=== PATIENT | male | born 1955 | race Caucasian/White ===

== ENCOUNTER 2024-01-06 15:00 | Outpatient (RCR) | payer MEDICARE, SELFPAY ==
--- NOTE | 2023-12-04 14:31 | PTOPEVAL1 ---
Assessment and note entered by Carmen Lopez, PT Evaluation Information Assessment Status Evaluation Diagnosis Oth. Specified joint disorders ICD-10 Condition Codes (PT) M25.511,Weakness R53.1 Other ICD-10 Condition Codes ( Abnormal posture PT) Onset August 2023 Subjective Information Fell and reached out for a railing and hyperextended RUE reaching over to flip up light switch to the outside. When fell, he strained and pulled a lot of muscles on the right shoulder but the shoulder itself has not stopped hurting. Doesn't keep him from doing anything but can go from a 3 to a 9 of 10 pain. Was going to a chiropractor and was told to do the exercises until they hurt the back off. She also done ultrasound and stim. felt like these helped for a day or two then would go back. When laying down to sleep is when has increased pain. Has been using CBD lotion. Has not tried CBG . Reported Pain Level Pain Score 2: Self Report Assessment PT Clinical Summary Pt presents with complaints of right shoulder pain after a fall this past Summer. Pt demo's mildly decreased ROM compared to unaffected extremity however has pain with activities above 90 degrees, eccentric loading of supraspinatus, decreased strength RUE compared to LUE, poor thoracic and scapular postures, and (+) special testing suggestive of supraspinatus tear, and/or labral involvement in addition to clear postural related impingement. Pt will benefit from therapy to address deficits, and decreased pain with use to return pt to PLOF. Plan of Care Interventions Electrical Stimulation,Hot Pack/Cold Pack,Manual Therapy,Neuro Re-education,Patient/Caregiver Educati,Therapeutic Activities,Therapeutic Exercise,Self-Care/Home Management,Ultrasound Other Interventions IASTM, Taping PT Services Indicated Yes Treatment Frequency and 2x weekly x 8 visits Duration These treatments will address the objective and functional deficits as defined above. The patient will be advanced safely and appropriately in order for the patient to progress towards his/her prior level of function. Additional exercises will be introduced and as well as a comprehensive home exercise program upon discharge, if needed, ?to ensure carryover of functional gains achieved in the clinic. This treatment plan has been reviewed and agreement upon by the patient.
--- NOTE | 2023-12-04 14:31 | OPREHPOC ---
Outpatient Therapy Plan of Care This is a Multidisciplinary Plan of Care that may contain components documented by all disciplines (PT, OT, and ST.) PT Problem 1 PT Problem #1 Knowledge Deficit PT Goal 1 Goal / Goal Update Pt will be independent in HEP Pt will verbalize understanding of diagnosis and prognosis PT Problem 2 PT Problem #2 Pain PT Goal 1 Goal / Goal Update Pt will report lowest pain rating at 0/10 to show improvement in overall discomfort Target Visit 4 PT Goal 2 Goal / Goal Update Pt will report greatest pain level at 3/10 or less to improve ADLs and activities Target Visit 8 PT Problem 3 PT Problem #3 Impaired Range of Motion PT Goal 1 Goal / Goal Update Pt will demo RUE ROM equal to LUE without pain Target Visit 8 PT Problem 4 PT Problem #4 Impaired Strength PT Goal 1 Goal / Goal Update Pt will demo RUE equal strength compared to LUE below impingement range. Target Visit 8
--- NOTE | 2024-01-06 15:46 | PTOPPROG ---
Assessment and note entered by Carmen Lopez, PT Evaluation Information Assessment Status Progress Diagnosis Oth. Specified joint disorders ICD-10 Condition Codes (PT) M25.511,Weakness R53.1 Other ICD-10 Condition Codes ( Abnormal posture PT) Onset August 2023 Subjective Information Pt reports is worse than when he started. Pain increased approx 2 weeks ago when had arm resting on the back of the couch and since then has continued to have increased pain. continues to have the worst pain when sleeping. States evidently woke up his up moaning in his sleep . Reports has had the MRI, has multiple tears in the shoulder, some full thickness some partial. Has not taken OTC NSAIDs, prefers CBD anti- inflammatories Assessment PT Clinical Summary Pt has attended therapy consistently for right shoulder pain. He has since also had imaging which shows multiple partial and full thickness tears of multiple muscle groups and subacromial bursitis . During therapy his shoulder became further irritated after lifting arm from an impingement position after which point the pain did not return to lower ratings even at rest. Pt today demo's decreased ROM and strength due to pain. Pending ortho consult, should pain reduce, patient may benefit from continued therapy. However should pt and ortho decide on another route, this will act as patient's discharge note. Plan of Care Interventions Electrical Stimulation,Hot Pack/Cold Pack,Manual Therapy,Neuro Re-education,Patient/Caregiver Educati,Therapeutic Activities,Therapeutic Exercise,Self-Care/Home Management,Ultrasound Other Interventions IASTM, Taping PT Services Indicated Yes Treatment Frequency and Pending ortho consult, cont 1-2x weekly x 8 weeks Duration These treatments will address the objective and functional deficits as defined above. The patient will be advanced safely and appropriately in order for the patient to progress towards his/her prior level of function. Additional exercises will be introduced and as well as a comprehensive home exercise program upon discharge, if needed, ?to ensure carryover of functional gains achieved in the clinic. This treatment plan has been reviewed and agreement upon by the patient.
--- NOTE | 2024-01-09 17:15 | PCPTNOTE ---
Admitting Provider: Attending Provider: LINDA Morton Patient:Osiel Garcia Date of :1955 Pt called today stating he would be undergoing surgery for his shoulder and to close his case for now. We will be happy to assist in his rehabilitation post-surgery and look forward to working with him again. Thank you for referring this patient to [facility].
== END 2024-01-10 08:05 | disposition home or self-care (01) ==
LOC: ANHHIPT 15:00
PROVIDERS: PCP Family Medicine; Visit Provider Physician Assistant Surgical
DX: M25.811 Other specified joint disorders, right shoulder (principal)
CPT/HCPCS: 97014; 97032; 97035; 97110; 97140; 97161; 97530; 97750; G0283

== ENCOUNTER 2024-01-24 16:19 | Emergency (ER) | payer MEDICARE, SELFPAY ==
[2024-01-24 16:22] VITALS: BP 167/92; PULSE 85; RESP 20; TEMP 36.1; O2SAT 98
--- NOTE | 2024-01-24 17:20 | PC.NURSE ---
EDP lanced pt hemorrhoid and cleaned area
[2024-01-24 17:28] VITALS: BP 166/110; PULSE 77; RESP 15; O2SAT 99
--- NOTE | 2024-01-24 18:04 | ED.GENADULT ---
HPI - General Adult General Chief complaint: Unspecified Stated complaint: Thrombus Hemorrhoid Time Seen by Provider: 01/24/24 16:55 Related Data Home Medications Medication Instructions Recorded Confirmed diltiazem HCl 240 mg mg PO 11/25/23 01/08/24 capsule,extended release 24 hr, controlled CBD PO 01/08/24 01/08/24 THC PO 01/08/24 01/08/24 Allergies Allergy/AdvReac Type Severity Reaction Status Date / Time Taetvvh-DSH-PzX Reductase AdvReac Intermediate Rash Verified 01/24/24 16:20 Inhibitor PMFSH Past Medical History Medical History Skin cancer Ventral hernia Surgical History Surgical History History of cochlear implant Family History Family History Other Diabetes mellitus Social History Social History Smoking status: Never smoker Second hand tobacco smoke exposure: Yes Alcohol intake: current Substance use: current Substance use type: marijuana Last use: Pills for pain. 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 Head: atraumatic. EYES: EOMI, NOSE: Atraumatic NECK: Trachea midline RESPIRATORY: No increased rate of breathing CARDIOVASCULAR: RRR, ABDOMINAL: Non-distended MUSCULOSKELETAl: No obvious deformities NEURO: Alert. Moving 4/4 extremities SKIN:: Warm, dry. Normal color PSYCHIATRIC: Normal affect Rectal exam 1 x 1 cm thrombosed hemorrhoid at the 3 o'clock position of the anus. Course Vital Signs Vital signs: Vital Signs Temperature 97.0 F L 01/24/24 16:22 Pulse Rate 85 01/24/24 16:22 Respiratory Rate 20 01/24/24 16:22 Blood Pressure 167/92 H 01/24/24 16:22 Pulse Oximetry 98 01/24/24 16:22 Oxygen Delivery Room Air 01/24/24 16:22 Temperature 97.0 F L 01/24/24 16:22 Pulse Rate 77 01/24/24 17:28 Respiratory Rate 15 01/24/24 17:28 Blood Pressure 166/110 H 01/24/24 17:28 Pulse Oximetry 99 01/24/24 17:28 Oxygen Delivery Room Air 01/24/24 16:22 Medical Decision Making MDM Narrative Medical decision making narrative: -Course: 68-year-old male presenting with a thrombosed hemorrhoid. Incision and drainage was performed with immediate relief. Patient was discharged with supportive measures and primary care follow-up procedures: patient is placed in a right lateral recumbent. The area was exposed. The hemorrhoid was anesthetized with 1% lidocaine x5 cc. A elliptical incision was made and the clot was expressed. Hemostasis achieved the patient tolerated the procedure well. Vital Signs Vital Signs: Vital Signs Temperature 97.0 F L 01/24/24 16:22 Pulse Rate 85 01/24/24 16:22 Respiratory Rate 20 01/24/24 16:22 Blood Pressure 167/92 H 01/24/24 16:22 Pulse Oximetry 98 01/24/24 16:22 Oxygen Delivery Room Air 01/24/24 16:22 Temperature 97.0 F L 01/24/24 16:22 Pulse Rate 77 01/24/24 17:28 Respiratory Rate 15 01/24/24 17:28 Blood Pressure 166/110 H 01/24/24 17:28 Pulse Oximetry 99 01/24/24 17:28 Oxygen Delivery Room Air 01/24/24 16:22 Discharge Plan Discharge Clinical Impression: Hemorrhoid thrombosis Patient Disposition: Home, Self-Care Condition: Stable Instructions: Antibiotic Form, Thrombosed Hemorrhoid (ED) Additional Instructions: Please follow-up with your primary care physician further management. Continue your typical hemorrhoid care. If you develop significant bleeding, increased rectal pain or signs of infection we return emergency department immediately. Prescriptions: No Action diltiazem HCl 240 mg capsule,ext.rel 24h degradable PO CBD PO THC PO meloxicam 15 mg tablet 15 mg PO DAILY Qty: 30 2RF methylprednisolone [Medrol (Zaire)] 4 mg tablets,dose pack See Rx Instructions PO PER PKG DIR Qty: 1 0RF Rx Instructions: PO PER PKG DIR for 6 days Follow-up/Referrals: Brian,Lam Jerez MD [Primary Care Provider] -
[2024-01-24 18:32] VITALS: BP 165/112; PULSE 86; RESP 15; TEMP 36.4; O2SAT 98
== END 2024-01-24 18:38 | disposition home or self-care (01) ==
PROVIDERS: Emergency Provider Emergency Medicine; PCP Family Medicine
DX: K64.5 Perianal venous thrombosis (principal)
CPT/HCPCS: 46320; 99282; J2004

== ENCOUNTER 2024-04-16 08:39 | Outpatient (CLI) | payer MEDICARE, SELFPAY ==
--- OUTSIDE RECORDS SUMMARY | 2024-04-16 08:46 | XMS_ITS | Encounter Summary ---
Author Organization [facility] [place] [facility] Address [address] [facility] [address] [place] [address] Phone Care Team Providers Care Automatic Edger Name Role Phone Nicky Jimenez MD Primary Care Provider [phone] Khalif Ortega MD Unavailable [phone] Lam Torres MD Primary Care Provider Carly Corea Unavailable [phone] Nette Durham MD Unavailable [phone] Jesus rBowne MD Unavailable + [phone] Rory Gooden MD Unavailable [phone] Alec Sparks MD Unavailable [phone] Macario Ignacio MD Unavailable [phone] Encounter Details Date Type Department Care Team (Latest Contact Info) Description 04/14/2019 Orders Only [facility] Scanning, Provider Social History Tobacco Use Types Packs/Day Years Used Date Smoking Tobacco: Never Sex and Gender Information Value Date Recorded Sex Assigned at Not on file Legal 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 Gender Identity Male 12/16/2020 9:34 AM CDT Sexual Orientation Straight 10/26/2019 10 :23 AM CDT documented as of this encounter Plan of Treatment Not on file documented as of this encounter Procedures Procedure Name Priority Date/Time Associated Diagnosis Comments SCAN - LABS 04/14/2019 documented in this encounter Results * SCAN - LABS (04/14/2019) us Provider Scanning Final Result documented in this encounter Visit Diagnoses Not on filedocumented in this encounter Care Teams Automatic Edger Relationship Specialty [place] [address] [facility] [address] [place] [address] PCP - General Internal Medicine 12/18/17 05/13/23 Lam Torres MD [address] [place], [place] [id number] PCP - General Family Medicine 05/14/23 Khalif Ortega MD [address] [place] [address] Referring Physician Otolaryngology 04/15/18 Carly Corea PA [address] [place] [address] Physician Solidworks Designer 05/14/23 Nette Durham MD [address] [place], [place] [address] Consulting Physician Cardiology 05/14/23 Jesus Browne MD [address] [facility] [id number] [place] [address] Surgeon Surgical Critical Care 05/14/23 Rory Gooden MD [address] [facility] [address] [place] [address] Consulting Physician Urology 05/14/23 Alec Sparks MD [address] [place] [address] Referring Physician Orthopedic Surgery 03/16/24 Macario Ignacio MD [address] [place] [address] [place] [address] Dermatology 03/16/24 documented as of this encounter
--- OUTSIDE RECORDS SUMMARY | 2024-04-16 08:47 | XMS_ITS | Encounter Summary ---
Author Organization [facility] Address [facility] [place] [address] Care Team Providers Care Net Developer Architect Name Role Phone Nicky Jimenez MD Primary Care Provider None, Provider Primary Care Provider Unavaila ble Encounter Details Date Type Department Care Team (Late st Contact Info) Description 11/27/2019 QMedic Message Enc [facility] Family & Internal Medicine [facility] [address] [place] [address] Yvette Carlos, LINDA [address] [place] [address] Follow Up/Update Social History Tobacco Use Types Packs/Day Years Used Date Smoking Tobacco: Never Smokeless Tobacco: Never Alcohol Use Standard Drinks/Week Comments Yes 0 (1 standard drink = 0.6 oz pur e alcohol) rarely PHQ-2 Answer Date Recorded PHQ-2 Score 0 04/14/2019 Sex and Gender Information Value Date Recorded Sex Assigned at Not on file Legal Sex Male 7:41 PM CDT Gender Identity Not on file Sexual Orientation Not on file documented as of this encounter Plan of Treatment Not on file documented as of this encounter Visit Diagnoses Not on filedocumented in this encounter Additional Health Concerns Infection Onset Date Last Indicated Resolved Time COVID-19 Rule Out 06/05/2020 06/05/2020 06/06/2020 12:45 PM CDT documented as of this encounter Care Teams Net Developer Architect Relationship Specialty Start Date End Date Nicky Jimenez MD PCP - General 08/03/16 01/21/23 None, Provider, PCP - General UNKNOWN PHYSICIAN SPECIALTY 01/22/23 documented as of this encounter
--- OUTSIDE RECORDS SUMMARY | 2024-04-16 08:47 | XMS_ITS ---
Author Organization [facility] Address [address] [place] [address] Care Team Providers Care Educational Therapist Name Role Phone Khalif Ortega MD Unavailable [phone] Lam Torres MD Primary Care Provider [phone] Carly Corea Unavailable [phone] Nette Durham MD Unavailable [phone] Jesus Browne MD Unavailable + [phone] Rory Gooden MD Unavailable [phone] Alec Sparks MD Unavailable [phone] Macario Ignacio MD Unavailable [phone] Active Problems Problem Noted Date Diagnosed Date Preoperative evaluation to larisa beebe out surgical contraindication 03/17/2024 Assessment & Plan (03/17/2024 1:47 PM ENTRY DRIVER OPERATOR): addendum: reviewed labs, xr, ekg. he has significantly high cholesterol, with h/o statin intolerance, which we are going to treat. otherwise, by Zuñiga he is at 3.9% risk of major cardiac event, By ACS NSQIP he is at low risk as well KOBE (obstructive sleep apnea) 01/07/2024 BMI 32.0-32.9,adult 01/07/2024 Encounter for medical examination to establish c are 05/14/2023 Assessment & Plan (05/14/2023 10:18 AM CDT): A(n) initial Medicare Annual Wellness Visit has been performed today. Osiel Garcia is not up to date on screening tests. He is in need of Prostate screening, hepatitis C screen, and Cholesterol screening. He is up to date on needed preventative vaccinations. We discussed healthy lifestyle habits, educational material has been given. Medications reviewed, changes documented as per the medical record and discussed with patient along with risks vs benefits. Return in 1 month Melanoma of right upper arm 02/11/2023 Cataract, nuclear sclerotic, both eyes Assessment & Plan (06/19/2022 10:05 AM CDT): SRx given. Sternal pain 01/26/2020 Urinary retention 12/08/2019 Assessment & Plan (12/08/2019 8:48 AM CDT): Unable to void spontaneously s/p chandler removal despite multiple void trials with straight cath x 3. On flomax. Plan to discharge with chandler in place and patient given instructions for chandler care. Follow up to be arranged with PCP in 1 week for removal. Acute post-operative pain 12/03/2019 Assessment & Plan (12/03/2019 10:47 AM CDT): Epidural catheter with PAIN management following Dilaudid HAZARDOUS SUBSTANCES SCIENTIST Planning to keep chandler until epidural discontinued. Ventral hernia 11/17/2019 Overview (11/17/2019): Added automatically from request for surgery [id number] Assessment & Plan (12/07/2019 1:23 PM CDT): 12/01 [facility] OR Repair of open ventral hernia with bilateral posterior component separation with myofascial cutaneous release with synthetic mesh placed in the retrorectal space, inferior sternal reconstruction. RLQ drain subq LLQ drain above mesh -NPO, NG fell out post op. ARBF -Epidural/HAZARDOUS SUBSTANCES SCIENTIST,. Chandler until epidural removed. -Island drsg in place, remove 12/03 -12/02 Sips of CLD, dulcolax suppository. ARBF. - 12/05 Advance to regular diet, passing flatus 12/06 Tolerating a diet with pain well controlled. Having BM's. Midline incision with meseret clean, no erythema or drainage. OG drains with bloody tinged fluid, he will discharge with both drains. He will follow up with Dr. Browne. Screening for malignant neoplasm 10/28/2019 Overview (10/28/2019): Added automatically from request for surgery [id number] Hyperlipidemia 06/03/2019 Assessment & Plan (07/14/2020 9:55 AM CDT): His LDL is much improved on rosuvastatin, down to 83 from 210. He is interested in coming off of the statin if possible. I have asked him to work on losing weight, and we will repeat the cholesterol panel once he is back down at least to 215lb. We can give him a trial off of the statin and also check a coronary artery calcium score at that point to determine the need for continued statin therapy. Assessment & Plan (01/13/2020 4:46 PM ENTRY DRIVER OPERATOR): We will repeat lipid panel today, since he has lost a considerable amount of weight. We will have a low threshold to start statin therapy - we will go with rosuvastatin if needed. Assessment & Plan (06/03/2019 9:50 AM CDT): His LDL was markedly elevated at 210, which is in the range for possible familial hypercholesterolemia. We will increase atorvastatin to 80mg for high-intensity dosing. We will also perform genetic testing for familial hypercholesterolemia. I also recommended starting ASA 81mg for overall CV risk reduction. Obesity due to excess calories 06/03/2019 Assessment & Plan (05/14/2023 10:17 AM CDT): BMI Follow-up includes: nutrition counseling, exercise counseling, and education provided. Assessment & Plan (07/14/2020 9:56 AM CDT): He will work on lifestyle modifications at home to lose weight. Assessment & Plan (01/13/2020 4:47 PM ENTRY DRIVER OPERATOR): He has lost 30 pounds since our last visit and continues to be motivated to get down to 185lb. Assessment & Plan (06/03/2019 9:50 AM CDT): We talked about increasing intake of fruits and vegetables, portion control, and increasing exercise with the goal of losing weight. This is an important component of his treatment plan to reduce the risk of CV events. Hypertension Assessment & Plan (01/29/2024 4:34 PM ENTRY DRIVER OPERATOR): BP elevated in office today, pt notes it is always high in office and is normal range at home. Continues Diltiazem 240 mg daily. Assessment & Plan (07/14/2020 9:55 AM CDT): Home BP has been adequately controlled, <140/90. He will continue on diltiazem and HCTZ and let me know if his home readings are consistently higher. Assessment & Plan (01/13/2020 4:47 PM ENTRY DRIVER OPERATOR): His home BP has been well controlled on diltiazem and HCTZ. We may be able to stop one of these agents at our next visit if he continues to lose weight. Assessment & Plan (12/03/2019 10:52 AM CDT): Placed on labetalol 5mg as needed post operatively while NPO 12/02, no NG, remains NPO, no nausea. -starting home diltiazem 180 mg XR today -Home ASA 81 mg and HCTZ 12.5 mg on hold. Assessment & Plan (06/03/2019 9:48 AM CDT): His BP is elevated today. Given his LDL >190, our goal for him is BP <130/90. We will stop diltiazem and start lisinopril 20mg. He will let us know his BP readings next week - if needed, we will increase lisinopril and/or add chlorthalidone. We will check a BMP in 2 weeks for Cr and K on lisinopril. Current Treatment and Therapy Plans No current plan information found. Past Treatment and Therapy Plans No past plan information found. Lifetime Dose Tracking * Chemical Lifetime Dose Automatic Entry Manual Entr y DLP 1,246 mGycm 1,246 mGycm 0 mGycm Resolved Problems Problem Noted Date Diagnosed Date Resolved Date Familial hypercholesteremia 06/03/2019 01/13/2020
--- OUTSIDE RECORDS SUMMARY | 2024-04-16 08:47 | XMS_ITS | Encounter Summary ---
Author Organization [facility] Address [facility] [place] [address] Care Team Providers Care Subsorter Name Role Phone Nicky Jimenze MD Primary Care Provider None, Provider Primary Care Provider Unavaila ble Encounter Details Date Type Department Care Team (Late st Contact Info) Description 12/10/2019 i[employer]ettle Message Enc [facility] Family & Internal Medicine [facility] [address] [place] [address] Yvette Carlos, LINDA [address] [place] [address] RE: Follow Up/Update Social History Tobacco Use Types [...] documented as of this encounter Care Teams Subsorter Relationship Specialty Start Date End Date Nicky Jimenez MD PCP - General 08/03/16 01/21/23 None, Provider, PCP - General UNKNOWN PHYSICIAN SPECIALTY 01/22/23 documented as of this encounter
--- OUTSIDE RECORDS SUMMARY | 2024-04-16 08:47 | XMS_ITS | Encounter Summary ---
Author Organization [facility] Address [facility] [place] [address] Care Team Providers Care Station Worker Name Role Phone Nicky Jimenez MD Primary Care Provider [phone] None, Provider MD Primary Care Provider Unavaila ble Encounter Details Date Type Department Care Team (Late st Contact Info) Description 06/02/[address] [facility] [address] [place], [place] [id number] Gustavo Brunner MD [address] [place] [phone] Social History Tobacco Use Types Packs/Day Years [...] on file Sexual Orientation Not on file COVID-19 Exposure Response Date Recorded In the last month, have you been in contact with someone who was confirmed or suspected to have Coronavirus / COVID-19? No / Unsure 06/05/2020 7:49 AM CDT documented as of this encounter Plan of Treatment Not on file documented as of this encounter Results * PRE-SURGICAL/PRE-PROCEDURE CORONAVIRUS (COVID 19) (06/05/2020 7:50 AM CDT) CORONAVIRUS SARS COV 2 PCR (RESP) NOT DETECTED NOT DETECTED 06/06/2020 12:45 PM CDT [facility] Comment: A Not Detected (negative) test result for this test means that SARS- CoV-2 RNA was not present in the specimen above the limit of detection. A negative result does not rule out the possibility of COVID-19 and should not be used as the sole basis for treatment or patient management decisions. If COVID-19 is still suspected, based on exposure history together with other clinical findings, re-testing should be considered in consultation with public health authorities. Laboratory test results should always be considered in the context of clinical observations and epidemiological data in making a final diagnosis and patient management decisions. Please review the Fact Sheets and FDA authorized labeling available for health care providers and patients using the following websites: https://www.twago - teamwork across global offices.Acacia/home/Covid-19/HCP/QuestIVD/fact- sheet.html https://www.twago - teamwork across global offices.Acacia/home/Covid-19/Patients/ QuestIVD/fact-sheet.html This test has been authorized by the FDA under an Emergency Use Authorization (EUA) for use by authorized laboratories. Due to the current public health emergency, [facility] is receiving a high volume of samples from a wide variety of swabs and media for COVID-19 testing. In order to serve patients during this public health crisis, samples from appropriate clinical sources are being tested. Negative test results derived from specimens received in non-commercially manufactured viral collection and transport media, or in media and sample collection kits not yet authorized by FDA for COVID-19 testing should be cautiously evaluated and the patient potentially subjected to extra precautions such as additional clinical monitoring, including collection of an additional specimen. Methodology: Nucleic Acid Amplification Test (NAAT) includes RT-PCR or TMA Additional information about COVID-19 can be found at the [facility] website: www.Credit Coach.Acacia/Covid19. Test performed at [facility] [address] [place] [address] Director: CHUY TEJEDA DO,MPH FIRST TEST UNKNOWN 06/05/2020 7:50 AM CDT [facility] EMPLOYED IN HEALTHCARE NO 06/05/2020 7:50 AM CDT [facility] SYMPTOMATIC DEFINED BY CDC UNKNOWN 06/05/2020 7:50 AM CDT [facility] DATE OF SYMPTOM ONSET UNKNOWN 06/05/2020 3:58 PM CDT [facility] HOSPITALIZATION STATUS NO 06/05/2020 7:50 AM CDT [facility] PATIENT IN ICU NO 06/05/2020 7:50 AM CDT [facility] NO 06/05/2020 7:50 AM CDT [facility] UNKNOWN 06/05/2020 3:58 PM CDT [facility] PATIENT'S RACE WHITE OR 06/05/2020 7:50 AM CDT [facility] ETHNICITY NONHISPANIC 06/05/2020 7:50 AM CDT [facility] SOURCE (QST) NASOPHARYNGEAL SWAB 06/05/2020 7:50 AM CDT [facility] NASOPHARYNGEAL SWAB / Unknown 06/05/2020 7:50 AM CDT us Gustavo Brunner MD MICROBIOLOGY - GENERAL ORDER JAIDA Final Result [facility] [address] [place] [address], [place] [phone] [facility] [address] [place] [address], [place] * ECG 12-Lead (06/02/2020 2:09 PM CDT) 06/02/2020 2:09 PM CDT Narrative [facility] RAD - 06/02/2020 8:[address] [facility] Test Date: 2020-06-02 Pat Name: OSIEL LONDONO Department: Room: Gender: Male It Systems Manager: : 1955 Requested By: GUSTAVO BRUNNER Order Number: [id number] Reading : Cody Jamil Measurements Intervals Keenes Rate: 58 P: 70 OK: 175 QRS: 18 QRSD: 104 T: 30 QT: 399 QTc: 394 Interpretive Statements SINUS BRADYCARDIA No previous ECG available for comparison Procedure Note Cody Jamil MD - 06/02/2020 [facility] Test Date: 2020-06-02 Pat Name: OSIEL LONDONO Department: Room: Gender: Male It Systems Manager: : 1955 Requested By: GUSTAVO BRUNNER Order Number: [id number] Reading MD: Cody Jamil Measurements Intervals Keenes Rate: 58 P: 70 OK: 175 QRS: 18 QRSD: 104 T: 30 QT: 399 QTc: 394 Interpretive Statements SINUS BRADYCARDIA No previous ECG available for comparison us Gustavo Brunner MD ECG ORDERABLES Final Result Performing Organization Address City/State/[facility] Co de Phone Number [facility] documented in this encounter Visit Diagnoses Diagnosis Preop testing- Primary Preoperative examination, unspecified Preop testing Preoperative examination, unspecified documented in this encounter Additional Health Concerns Infection Onset Date Last Indicated Resolved Time COVID-19 Rule Out 06/05/2020 06/05/2020 06/06/2020 12:45 PM CDT documented as of this encounter Care Teams Station Worker Relationship Specialty Start Date End Date Nicky Jimenez MD PCP - General 08/03/16 01/21/23 None, Provider, PCP - General UNKNOWN PHYSICIAN SPECIALTY 01/22/23 documented as of this encounter
--- OUTSIDE RECORDS SUMMARY | 2024-04-16 08:47 | XMS_ITS | Encounter Summary ---
Author Organization [facility] Address [facility] [place] [address] Care Team Providers Care Resource Specialist Teacher Name Role Phone Nicky Jimenez MD Primary Care Provider None, Provider Primary Care Provider Unavaila ble Encounter Details Date Type Department Care Team (Late st Contact Info) Description 06/02/2019 [employer] Message Enc [facility] Family & Internal Medicine [facility] [address] [place] [address] Yvette Carlos, LINDA [address] [place] [address] Follow Up/Update Social History Tobacco [...] have Coronavirus / COVID-19? No / Unsure 05/20/2019 11:33 AM CDT documented as of this encounter Plan of Treatment Not on file documented as of this encounter Visit Diagnoses Not on filedocumented in this encounter Additional Health Concerns Infection Onset Date Last Indicated Resolved Time COVID-19 Rule Out 06/05/2020 06/05/2020 06/06/2020 12:45 PM CDT documented as of this encounter Care Teams Resource Specialist Teacher Relationship Specialty Start Date End Date Nicky Jimenez MD PCP - General 08/03/16 01/21/23 None, Provider, PCP - General UNKNOWN PHYSICIAN SPECIALTY 01/22/23 documented as of this encounter
--- OUTSIDE RECORDS SUMMARY | 2024-04-16 08:47 | XMS_ITS | Encounter Summary ---
Author Organization [facility] Address [address] [place] [address] Care Team Providers Care Manufactured Buildings Supervisor Name Role Phone Nicky Jimenez MD Primary Care Provider [phone] Macario Ignacio MD Unavailable [phone] Encounter Details Date Type Department Care Team (Late st Contact Info) Description 02/01/2023 Lab Requisition [facility] - [facility]erm[facility] Lab [address] [facility] [place] [phone] Macario Ignacio MD [facility] [address] [place] [phone] Neoplasm of uncertain behavior of skin Social History Tobacco Use Types Packs/Day Years Used Date Smoking Tobacco: Never Assessed Sex and Gender Information Value Date Recorded Sex Assigned at Male 02/11/2023 2:10 PM DOCENT COORDINATOR Gender Identity Male 02/11/2023 2:10 PM DOCENT COORDINATOR Sexual Orientation Straight 02/11/2023 2: 10 PM DOCENT COORDINATOR documented as of this encounter Plan of Treatment Not on file documented as of this encounter Procedures Procedure Name Priority Date/Time Associated Diagnosis Comments DERMATOPATHOLOGY Routine 01/31/2023 3:33 AM DOCENT COORDINATOR Neoplasm of uncertain behavior of skin documented in this encounter Results * DERMATOPATHOLOGY (01/31/2023 3:33 AM DOCENT COORDINATOR) Case Report Dermatopathology Report Case: [id number] Authorizing Provider: Macario Ignacio MD Collected: 01/31/2023 03:33 AM Ordering Location: [facility] Lab Received: 02/04/2023 12:57 PM Pathologist: Masha Cervantes MD Specimens: A) - Skin, rght lproximal posterior arm B) - Skin, posterior scalp 5:10 PM [facility] DERMAT[facility]ORATORY Final Diagnosis Specimen A. 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 Basal Cell Carcinoma vs. Melanoma B: Neoplasm of Uncertain Behavior vs. Melanoma 5:10 PM DOCENT COORDINATOR DERMATOPATHOLOGY LABORATORY Gross Description Specimen A: Received is one formalin filled container labeled with the patient's name and designated rght lproximal posterior arm. The specimen consists of a shave biopsy measuring 6x4x2 mm. Jar 0. Specimen B: Received is one formalin filled container labeled with the patient's name and designated posterior scalp. The specimen consists of a shave biopsy measuring 11x7x1 mm. Jar 0. 3 5:10 PM [facility]ERMAT[facility]Y [facility]ORY Microscopic Description Specimen A. SKIN, rght lproximal posterior arm: Sections show a proliferation of melanocytes distributed in an irregular pattern at the dermal epidermal junction. In the dermis there are nests and single melanocytes forming a nodule which extends to the base of the specimen. There is no adjacent intraepidermal component beyond the dermal component of the tumor. Lesional cells are highlighted by MART-1/MelanA immunostain. There is an associated brisk lymphoid infiltrate. There is also associated acanthosis and hyperkeratosis, favored to represent reactive epidermal changes. Additional deeper sections were obtained and reviewed. This lesion is not present at the margin of the specimen. Specimen B. SKIN, posterior scalp: There is a proliferation of melanocytes distributed in an irregular pattern along the dermal-epidermal junction with single cells predominating, extension down the follicular epithelium, and focal areas of confluence. In the dermis there are irregular nests of cytologically similar melanocytes. Lesional cells are highlighted by MART-1/MelanA immunostain. This lesion is present at the margin of the specimen. 3 5:10 PM [facility] DERMATOPATH[facility]Y [facility]ORATORY Disclaimer An external and internal positive and negative controls are appropriate for the histochemical, immunohistochemical and immunofluorescence stain(s) in this case (if any), except where stated explicitly. The performance characteristics of the stain(s) cited in this report were developed and its performance characteristic determined by the Dermatopathology Laboratory at [facility], directed by Dr. Justa Vasquez. These tests need not be, and therefore are not, approved by the [place] Food and Drug Administration. The tests are used for clinical purposes. Billing Codes Specimen Charges Stain Charges 57686 84444 1 1 [id number] 29064 1 1 3 5:10 PM [facility] Embedded Images 3 5:10 PM [facility] Synoptic Report MELANOMA OF THE SKIN: Biopsy MELANOMA OF THE SKIN: BIOPSY - A 8th Edition - Protocol posted: 05/17/2021 SPECIMEN Procedure: Biopsy, shave Specimen Laterality: Right TUMOR Tumor Site: Skin of upper limb and shoulder: right proximal-posterior arm Multiple Primary Sites: Present: See specimen B Histologic Type: Nodular melanoma Maximum Tumor (Breslow) Thickness (Millimeters): At least: 1.0 mm : tumor is present at the surgical margin;therefore, the final depth may exceed the current one Ulceration: Not identified Anatomic (Taqueria) Level: At least level: IV : tumor is present at the surgical margin;therefore, the final depth may exceed the current one Mitotic Rate: None identified Microsatellite(s): Cannot be determined Lymphovascular Invasion: Not identified Neurotropism: Not identified Tumor-Infiltrating Lymphocytes: Present, brisk Tumor Regression: Not identified MARGINS: Margin Status for Invasive Melanoma: Invasive melanoma present at margin Margin(s) Involved by Invasive Melanoma: Deep Margin Status for Melanoma in situ: All margins negative for melanoma in situ PATHOLOGIC STAGE CLASSIFICATION (pTNM, AJCC 8th Edition): TNM Descriptors: m (multiple) pT Category: pT1b Comment(s): This case was reviewed by Dr. Gracie Cervantes, who agrees. MELANOMA OF THE SKIN: Biopsy MELANOMA OF THE SKIN: BIOPSY - B 8th Edition - Protocol posted: 05/17/2021 SPECIMEN Procedure: Biopsy, shave Specimen Laterality: Not specified TUMOR Tumor Site: Skin of scalp and neck: posterior scalp Multiple Primary Sites: Present: See specimen A Histologic Type: Lentigo maligna melanoma Maximum Tumor (Breslow) Thickness (Millimeters): At least: 0.4 mm : tumor is present at the surgical margin;therefore, the final depth may exceed the current one Ulceration: Not identified Anatomic (Taqueria) Level: At least level: III : tumor is present at the surgical margin;therefore, the final depth may exceed the current one Mitotic Rate: None identified Microsatellite(s): Cannot be determined Lymphovascular Invasion: Not identified Neurotropism: Not identified Tumor-Infiltrating Lymphocytes: Present, nonbrisk Tumor Regression: Present MARGINS: Margin Status for Invasive Melanoma: Invasive melanoma present at margin Margin(s) Involved by Invasive Melanoma: Deep Margin Status for Melanoma in situ: Melanoma in situ present at margin Margin(s) Involved by Melanoma in Situ: Peripheral Margin(s) Involved by Melanoma in Situ: Deep PATHOLOGIC STAGE CLASSIFICATION (pTNM, AJCC 8th Edition): TNM Descriptors: m (multiple) pT Category: pT1a Comment(s): This case was also reviewed by Dr Gracie Cervantes who agrees. 3 5:10 PM DOCENT COORDINATOR DERMATOPATHOLOGY LABORATORY Pathology/Cytology TISSUE SPECIMEN FROM SKIN / Unknown 01/31/2023 3:33 AM DOCENT COORDINATOR 02/04/2023 12:57 PM DOCENT COORDINATOR Miscellaneous samples (specimen) TISSUE SPECIMEN FROM SKIN / Unknown 01/31/2023 3:33 AM DOCENT COORDINATOR 02/04/2023 12:57 PM DOCENT COORDINATOR Macario Ignacio MD LAB - PATHOLOGY/CYTO LOGY ORDERABLES DERMATOPATHOLOGY LABORATORY [facility] - Department of Dermatology [address], [address] [phone] documented in this encounter Visit Diagnoses Diagnosis Neoplasm of uncertain behavior of skin documented in this encounter Care Teams Manufactured Buildings Supervisor Relationship Specialty Start [place] [id number] [place] [phone] PCP - General Internal Medicine 02/08/23 Macario Ignacio MD [facility] [address] [place] [phone] Referring Physician Dermatology 02/08/23 documented as of this encounter
--- OUTSIDE RECORDS SUMMARY | 2024-04-16 08:47 | XMS_ITS | Encounter Summary ---
Author Organization [facility] Address [facility] [place] [address] Care Team Providers Care Manager Epic Name Role Phone Nicky Jimenez MD Primary Care Provider [phone] None, Provider Primary Care Provider Unavaila ble Encounter Details Date Type Department Care Team (Late st Contact Info) Description 01/20/2020 [employer] Message Enc [facility] Family & Internal Medicine [facility] [address] [place] [address] Yvette Carlos, LINDA [address] [place] [address] RE: Question Social History Tobacco Use Types Packs/Day Years [...] documented as of this encounter Care Teams Manager Epic Relationship Specialty Start Date End Date Nicky Jimenez MD PCP - General 08/03/16 01/21/23 None, Provider, PCP - General UNKNOWN PHYSICIAN SPECIALTY 01/22/23 documented as of this encounter
--- OUTSIDE RECORDS SUMMARY | 2024-04-16 08:47 | XMS_ITS | Clinical Summary ---
Author Organization [facility] Address [address] [place] [address] Care Team Providers Care Back End Developer Name Role Phone Khalif Ortega MD Unavailable [phone] Lam Torres MD Primary Care Provider [phone] Carly Corea Unavailable [phone] Nette Durham MD Unavailable [phone] Jesus Browne MD Unavailable [phone] Rory Gooden MD Unavailable [phone] Alec Sparks MD Unavailable [phone] Macario Ignacio MD Unavailable [phone] Allergies Active Allergy Reactions Criticality Noted Date Comments Qwbqaas-Duq-Flk Reductase Inhibitors Dizziness,Mental status changes Medium 05/28/2023 Medications cholecalciferol, vitamin D3, (VITAMIN D3 ORAL)Indications:supple ment Take 1 tablet by mouth every morning Active psyllium husk (METAMUCIL ORAL)Indications:consti pation Take 1 packet by mouth every morning Active peppermint oil liquidIndications:heada marko Take 2 drops by mouth as needed Active aller xt-weed pollen-goldenrod 1:20 solution Liquid Active vitamin B complex (B COMPLEX 1 ORAL) Take by mouth Active magnesium gluconate 200 mg tabletIndications:hypom agnesemia 1 tablet (200 mg total) Active ZINC ORAL Take by mouth Active dilTIAZem XR 240 mg 24 hr capsuleIndications:Prim alex hypertension TAKE 1 CAPSULE (240 MG TOTAL) BY MOUTH DAILY 30 capsule 1 024 Active meloxicam (MOBIC) 15 mg tablet 025 Active ascorbic acid (ascorbic acid with justina hips) 500 mg tablet,chewable Active omega-3 fatty acids-fish oil (Fish OiL) 360-1,200 mg capsule Take by mouth Active NON FORMULARY, FOR CLINIC ADMINISTERED MEDICATIONS ONLY, (not in database) 1 each once Dandalion Root Active NON FORMULARY, FOR CLINIC ADMINISTERED MEDICATIONS ONLY, (not in database) 1 each once Lions Jerry Active bempedoic acid 180 mg tabletIndications:heter ozygous familial hypercholesterolemia Take 1 tablet by mouth nightly 30 tablet 3 025 Active benzonatate (TESSALON) 200 mg capsule Take 1 capsule (200 mg total) by mouth 3 (three) times a day as needed for cough keep tessalon out of reach of children, especially children under the age of 10, due to possible serious risk such as if ingested by children under the age of 10. 30 capsule 024 2024 Disconti nued(Reo rder) benzonatate (TESSALON) 200 mg capsule Take 1 capsule (200 mg total) by mouth 3 (three) times a day as needed for cough keep tessalon out of reach of children, especially children under the age of 10, due to possible serious risk such as if ingested by children under the age of 10. 30 capsule 025 2024 Disconti nued(Oth er) pitavastatin calcium (LIVALO) 2 mg tablet Take 0.5 tablets (1 mg total) by mouth nightly 30 tablet 1 025 2024 Disconti nued(Oth er) Active Problems Problem Noted Date Diagnosed Date Preoperative evaluation to larisa beebe out surgical contraindication 03/17/2024 Assessment & Plan (03/17/2024 1:47 PM HAND INSERTER OPERATOR): addendum: reviewed labs, xr, ekg. he [...] arm 02/11/2023 Cataract, nuclear sclerotic, both eyes 3 Assessment & Plan (06/19/2022 10:05 AM CDT): SRx given. Sternal pain 01/26/2020 Urinary retention 12/08/2019 Assessment & Plan (12/08/2019 8:48 AM CDT): Unable to void spontaneously s/p chandler removal despite multiple void trials with straight cath x 3. On flomax. Plan to discharge with chandler in place and patient given instructions for cahndler care. Follow up to be arranged with PCP in 1 week for removal. Acute post-operative pain 12/03/2019 Assessment & Plan (12/03/2019 10:47 AM CDT): Epidural catheter with PAIN management following Dilaudid INSOLE AND HEEL STIFFENER Planning to keep chandler until epidural discontinued. Ventral hernia 11/17/2019 Overview (11/17/2019): Added automatically from request for surgery [id number] Assessment & Plan (12/07/2019 1:23 PM CDT): 12/01 GVB OR Repair of open ventral hernia with bilateral posterior component separation with myofascial cutaneous release with synthetic mesh placed in the retrorectal space, inferior sternal reconstruction. RLQ drain subq LLQ drain above mesh -NPO, NG fell out post op. ARBF -Epidural/INSOLE AND HEEL STIFFENER,. Chandler until epidural removed. -[facility] in [...] (10/28/2019): Added automatically from request for surgery [id number] Hyperlipidemia 06/03/2019 Assessment & Plan (07/14/2020 9:55 [...] therapy. Assessment & Plan (01/13/2020 4:46 PM HAND INSERTER OPERATOR): We will repeat lipid panel today, [...] weight. Assessment & Plan (01/13/2020 4:47 PM HAND INSERTER OPERATOR): He has lost 30 pounds since [...] Hypertension Assessment & Plan (01/29/2024 4:34 PM HAND INSERTER OPERATOR): BP elevated in office today, pt notes it is always high in office and is normal range at home. Continues Diltiazem 240 mg daily. Assessment & Plan (07/14/2020 9:55 AM CDT): Home BP has been adequately controlled, <140/90. He will continue on diltiazem and HCTZ and let me know if his home readings are consistently higher. Assessment & Plan (01/13/2020 4:47 PM HAND INSERTER OPERATOR): His home BP has been well [...] weeks for Cr and K on lisinopril. Resolved Problems Problem Noted Date Diagnosed Date Resolved Date Familial hypercholesteremia 06/03/2019 01/13/2020 Encounters Date Type Department Care Team Description 04/13/2024 Telephone [facility] Primary Care at [address] [address] Lam Torres MD Medical Records Request 04/08/2024 12:30 PM HAND INSERTER OPERATOR Telemedicine [facility] Neuro Sleep [address] 6[address] [place] [address] González Almaraz MD KOBE (obstructive sleep apnea) (Primary Dx); BMI 32.0-32.9,adult 03/17/2024 Telephone [facility] Primary Care at [address] [address] Lam Torres MD PA for Nexletol 03/16/2024 11:30 AM HAND INSERTER OPERATOR Ancillary Procedure [facility] Imaging at [address] [address] 03/16/2024 10:52 AM HAND INSERTER OPERATOR - 03/16/2024 11:59 PM HAND INSERTER OPERATOR Hospital Encounter [address] [address] Primary hypertension; Mixed hyperlipidemia Discharge Disposition: Discharge to home or self care 03/16/2024 10:45 AM HAND INSERTER OPERATOR Lab [facility] Outpatient Lab at [address] [address] Hyperlipidemia (Primary Dx); Hypertension 03/16/2024 10:15 AM HAND INSERTER OPERATOR Office Visit [facility] Primary Care at [address] [address] Lam Torres MD Mixed hyperlipidemia (Primary Dx); Primary hypertension; Melanoma of right upper arm (HCC); Preoperative evaluation to rule out surgical contraindication 03/16/[address] [facility] Primary Care at [address] [address] Lam Torres MD 02/27/2024 4:30 PM HAND INSERTER OPERATOR Procedure visit [facility] Otolaryngology [address], [address] [place] [address] Paige Rivera Au.D. Sensory hearing loss, bilateral (Primary Dx) 02/21/2024 Telephone [facility] Otolaryngology [address], [address] [place] [address] Dorothy Leon 02/12/2024 11:00 AM HAND INSERTER OPERATOR Procedure visit [facility] Otolaryngology [address], [address] [place] [address] Yoko Sim CCC-Solitario Sensorineural hearing loss (SNHL) of both ears (Primary Dx); Sensorineural hearing loss, bilateral 02/05/2024 Orders Only [facility] Neuro Sleep [address] [place] [address] González Almaraz MD KOBE (obstructive sleep apnea) (Primary Dx) 02/05/2024 Telephone [facility] Neuro Sleep [address] [place] [address] Lexi Nicole RN DME order 02/04/2024 Orders Only [facility] Primary Care at [address] [address] Mya Chris NP Thrombosed hemorrhoids (Primary Dx) 01/30/2024 Telephone [facility] Neuro Sleep [address] [place] [address] Yanet Gonzales CMA 01/29/2024 3:00 PM HAND INSERTER OPERATOR Office Visit [facility] Primary Care at [address] [address] Mya Chris NP Thrombosed hemorrhoids (Primary Dx); Primary hypertension 01/28/2024 10:00 AM HAND INSERTER OPERATOR Procedure visit [facility] Neuro Sleep [address] [place] [address] KOBE (obstructive sleep apnea) (Primary Dx) from Last 3 Months Immunizations Immunization Administration Dates Next Due DTaP, Unspecified 07/13/2015 Influenza, Quadrivalent, Hig h Dose, Preservative Free, Intrr 12/06/2020 Influenza, Quadrivalent, Rec ombinant, Egg Free, Preservative Free, Intramuscular 02/09/2020 Influenza, Unspecified 03/16/2024(Deferr ed: Patient Refused),05/14/2023(Deferred: Patient Refused),02/25/2023(Deferred: Patient Refused),02/25/2022(Deferred: Patient Refused),02/25/2022(Deferred: Patient Refused) Pneumococcal Conjugate PCV 13 04/20/2019 Pneumococcal Polysaccharide PPV23 06/21/2020 Tdap 07/13/2015 ZOSTER Recombinant 04/07/2020,02/09/2020 Surgical History Surgery Date Site/Laterality Comments EAR SURGERY 02/26/2016 - 02/24/2017 Left OCR-Dr. Ortega, bone recontruction 2/2 trauma INGUINAL HERNIA REPAIR 1980s COLONOSCOPY 02/25/2019 - 02/25/2020 VASECTOMY MELANOMA RESECTION 02/25/2022 - 02/24/2023 HERNIA REPAIR ventral Medical History Medical History Date Comments Allergic rhinitis Hypertension Umbilical hernia Sleep apnea Ventral hernia [place] (hard of hearing) Cancer (CMS/HCC) (HCC) Melanomas Mixed conductive and sensori neural hearing loss Cochlear Implant and Hearing Aid Cochlear implant in place Family History Medical History Relation Name Comments Diabetes type I Brother Steven StoneAndre Mcdaniel passed from diabetic coma Lung cancer Father Gabriel Alaina Mcdaniel metastatic No Known Problems Maternal Grandfather No Known Problems Maternal Grandmother Hearing loss Mother Solange Mcdaniel Heart attack Mother Solange Mcdaniel hx of CABG Hyperlipidemia Mother Solange Mcdaniel Stroke Mother Solange Mcdaniel multiple TIAs, CVA x 1 No Known Problems Paternal Grandfather No Known Problems Paternal Grandmother Hyperlipidemia Sister Rashmikeyshawn Dotson Hypertension Sister Rashmi Dotson Anesthesia problems Neg Hx Relation Name Status Comments Brother Steven Mcdaniel Father Gabriel Mcdaniel Maternal Grandfather Maternal Grandmother Mother Solange Carrillo [place] Paternal Grandfather Paternal Grandmother Sister Rashmi Dotson Alive Social History Tobacco Use Types Packs/Day Years Used Date Smoking Tobacco: Never Smokeless Tobacco: Never Tobacco Cessation:Counseling Given: Not Answered Alcohol Use Standard Drinks/Week Comments Yes 0 (1 standard drink = 0.6 oz pur e alcohol) occasional AUDIT-C Answer Date Recorded Q1: How often do you have a drink containing alc ohol? Monthly or less 05/14/2023 Q2: How many drinks containi ng alcohol do you have on a typical day when you are drinking? 1 or 2 05/14/2023 Q3: How often do you have si x or more drinks on one occasion? Never 05/14/2023 PHQ-2 Answer Date Recorded PHQ-2 Total Score (If total score is 3 or more points, staff should administer the PHQ-9) 0 03/16/2024 Sex and Gender Information Value Date Recorded Sex Assigned at Not on file Legal Sex Male 8:02 AM HAND INSERTER OPERATOR Gender Identity Male 12/16/2020 9:34 AM CDT Sexual Orientation Straight 10/26/2019 10 :23 AM CDT Occupation Industry Job Start Date Job End Date [employer] Not on file Not on file Not on file Obstetrics History Last Filed Vital Signs Vital Sign Reading Time Taken Comments Blood Pressure 136/80 03/16/2024 10:14 AM HAND INSERTER OPERATOR Pulse 70 03/16/2024 10:14 AM HAND INSERTER OPERATOR Temperature 36.1 C (96.9 F) 03/16/2024 10:14 AM HAND INSERTER OPERATOR Respiratory Rate 16 03/16/2024 10:14 AM HAND INSERTER OPERATOR Oxygen Saturation 97% 03/16/2024 10:14 AM HAND INSERTER OPERATOR Inhaled Oxygen Concentration - - Weight 102.1 kg (225 lb) 04/08/2024 12:58 PM HAND INSERTER OPERATOR Height 180.3 cm (5' 11 ) 04/08/2024 12:58 PM HAND INSERTER OPERATOR Body Mass Index 31.38 04/08/2024 12:58 PM HAND INSERTER OPERATOR Plan of Treatment Health Maintenance Due Date Last Done Comments Hepatitis B Screening 1973 Well Visit 65+ 05/13/2024 05/14/2023 Influenza Vaccine (#1) 2024 12/06/2020, 2019 Postponed from 10/27/2023 (Patient declined, but will receive in the future) Fall Risk Assessment 01/28/2025 01/29/2024, 05/14/2023, 12/08/2019 Depression Screening 03/16/2025 03/16/2024, 01/29/2024, 09/12/2023, Additional history exists DTaP/Tdap/Td Vaccine (3 - Td or Tdap) 07/12/2025 07/13/2015, 07/13/2015 Colon Cancer Screening-Colonoscopy 11/11/2029 11/12/2019 Colon Cancer Screening-CT Colonography Discontinued 11/12/2019 Colon Cancer Screening-DNA Stool Discontinued 11/12/2019 Colon Cancer Screening-FIT Discontinued 11/12/2019 Colon Cancer Screening-Sigmoidoscopy Discontinued 11/12/2019 Zoster Vaccine Completed 04/07/2020, 02/09/2020 Pneumococcal vaccine 65+ Completed 06/21/2020, 03/29 Hepatitis C Screening Completed 05/14/2023 Prostate Cancer Screening-PSA Discontinued 05/14/2023 Medical Devices Implanted Type Area Senior Ruby Developer Device Identifier Shelf Expiration Date Model / Serial / Lot [employer]/C R Bard [id number] Monofilament Soft Lightweight Low Profile Square - [id number] Implanted:Qty: 1 on 12/02/2019 by Jesus Browne MD at [facility] Mesh N/A: Abdomen [employer]/C R Bard [id number] 01/23/2024 [id number] / / [id number] Nucleus Ci 632 Profile Plus Cochlear Implant-09/23/19 21 Implanted:09/22 by Efra Bajwa MD (Quantity not on file) Ear Procedures Procedure Name Priority Date/Time Associated Diagnosis Comments XR CHEST PA LATERAL 2 VIEWS Routine 03/16/2024 10:59 AM HAND INSERTER OPERATOR Preoperative evaluation to rule out surgical contraindication EGFR Routine 03/16/2024 10:52 AM HAND INSERTER OPERATOR Primary hypertension DIFFERENTIAL AUTO Routine 03/16/2024 10: 52 AM HAND INSERTER OPERATOR Primary hypertension LIPID PANEL Routine 03/16/2024 10:52 AM HAND INSERTER OPERATOR Mixed hyperlipidemia COMPREHENSIVE METABOLIC PANEL Routine 03/16/2024 10:52 AM HAND INSERTER OPERATOR Primary hypertension CBC WITH AUTO DIFFERENTIAL Routine 03/16/2024 10:52 AM HAND INSERTER OPERATOR Primary hypertension ECG 12-LEAD Routine 03/16/2024 10:45 AM HAND INSERTER OPERATOR Preoperative evaluation to rule out surgical contraindication PORTABLE/HOME SLEEP STUDY Routine 01/28/2024 10:00 PM HAND INSERTER OPERATOR KOBE (obstructive sleep apnea) HEPATITIS C ANTIBODY Routine 05/14/2023 10:33 AM CDT Screening for hepatitis C declined PSA SCREEN Routine 05/14/2023 10:33 AM CDT Screening PSA (prostate specific antigen) COLONOSCOPY 11/12/2019 8:06 AM CDT from Last 3 Months or Most Recently Relevant to Health Maintenance Results * XR Chest Pa Lateral 2 Views (03/16/2024 10:59 AM HAND INSERTER OPERATOR) Anatomical Region Laterality Modality Body, Chest N/A Digital Radiogra phy 03/17/2024 11:0 2 AM HAND INSERTER OPERATOR Narrative 03/17/2024 11:05 AM HAND INSERTER OPERATOR EXAM DESCRIPTION: XR CHEST PA LATERAL 2 VIEWS REASON FOR STUDY: Pre op. No chest complaints. Hx abdominal hernia repair. No smoking hx. No asthma, copd,cancer,heart disease TECHNIQUE: 2 radiographic view(s) of the chest. COMPARISON: 09/12/2023 FINDINGS: LUNGS: No focal opacity, pleural effusion, or pneumothorax. HEART/MEDIASTINUM: Cardiac silhouette normal in size. Mediastinal and hilar contours appear normal. LINES/TUBES: None. BONES: No acute osseous abnormality. IMPRESSION: No acute cardiopulmonary abnormality. THIS IS AN ELECTRONICALLY VERIFIED FINAL REPORT 03/17/2024 11:05 AM - Electronically signed by Boby Berkeleyrony MARTINEZ T: Report ID: [id number] Reading Location: [id number] Procedure Note Boby Perla MD - 03/17/2024 EXAM DESCRIPTION: XR CHEST PA LATERAL 2 VIEWS REASON FOR STUDY: Pre op. No chest complaints. Hx abdominal hernia repair. No smoking hx. No asthma, copd,cancer,heart disease TECHNIQUE: 2 radiographic view(s) of the chest. COMPARISON: 09/12/2023 FINDINGS: LUNGS: No focal opacity, pleural effusion, or pneumothorax. HEART/MEDIASTINUM: Cardiac silhouette normal in size. Mediastinal andhilar contours appear normal. LINES/TUBES: None. BONES: No acute osseous abnormality. IMPRESSION: No acute cardiopulmonary abnormality. THIS IS AN ELECTRONICALLY VERIFIED FINAL REPORT 03/17/2024 11:05 AM - Electronically signed by Boby MARTINEZ T: Report ID: [id number] Reading Location: [id number] us Lam Torres MD IMG XR PROCEDURES Final Res ult * eGFR (03/16/2024 10:52 AM HAND INSERTER OPERATOR) eGFR 82 >=60 mL/min/1. 73 m2 Comment: Interpretive Data Reference Interval Normal >/= 90 mL/min/1.73m2 Mildly decreased* 60 - 89 mL/min/1.73m2 Mildly to moderately decreased 45 - 59 mL/min/1.73m2 Moderately to severely decreased 30 - 44 mL/min/1.73m2 Severely decreased 15 - 29 mL/min/1.73m2 Kidney Failure < 15 mL/min/1.73m2 *Relative to young adult level Estimated glomerular filtration rate is determined by the 2020 CKD-EPI equation recommended by the National Kidney Foundation (A Unifying Approach to GFR Estimation: Recommendations of the NKF-ASK Task Force on Reassessing the Inclusion of Race in Diagnosing Kidney Disease, JASN 202). The CKD-EPI equation should not be used for patients with unstable renal function and has not been validated in children and those over 70. Current interpretive data was last reviewed 2020. Blood 03/16/2024 10:5 2 AM HAND INSERTER OPERATOR 03/16/2024 4:02 PM HAND INSERTER OPERATOR us Lam Torres MD LAB BLOOD ORDERABLES Final Result [facility] [id number] Department [place] [address] * Differential, auto (03/16/2024 10:52 AM HAND INSERTER OPERATOR) Neutrophil abs 3.0 1.5 - 6.5 K/cumm Imm gran abs 0.0 0.0 - 0.1 K/cumm [facility] Lymphocyte abs 2.5 0.8 - 3.3 K/cumm [facility] Monocyte abs 0.5 0.2 - 0.8 K/cumm [facility] Eosinophil abs 0.1 0.0 - 0.5 K/cumm [facility] Basophil abs 0.0 0.0 - 0.1 K/cumm [facility] Neutrophil pct 48.5 % [facility] Comment: Interpretive Data Percent cell count reference ranges are not reported, since discordance with absolute values may lead to misinterpretation of CBC data. Current Interpretive Data was last revised on 2017. Imm gran pct 0.5 % [facility] Comment: Interpretive Data Percent cell count reference ranges are not reported, since discordance with absolute values may lead to misinterpretation of CBC data. Current Interpretive Data was last revised on 2017. Lymphocyte pct 40.4 % [facility] Comment: Interpretive Data Percent cell count reference ranges are not reported, since discordance with absolute values may lead to misinterpretation of CBC data. Current Interpretive Data was last revised on 2017. Monocyte pct 8.3 % [facility] Comment: Interpretive Data Percent cell count reference ranges are not reported, since discordance with absolute values may lead to misinterpretation of CBC data. Current Interpretive Data was last revised on 2017. Eosinophil pct 1.6 % [facility] Comment: Interpretive Data Percent cell count reference ranges are not reported, since discordance with absolute values may lead to misinterpretation of CBC data. Current Interpretive Data was last revised on 2017. Basophil pct 0.7 % [facility] Comment: Interpretive Data Percent cell count reference ranges are not reported, since discordance with absolute values may lead to misinterpretation of CBC data. Current Interpretive Data was last revised on 2017. Blood 03/16/2024 10:5 2 AM HAND INSERTER OPERATOR 03/16/2024 3:31 PM HAND INSERTER OPERATOR Lam Torres MD LAB BLOOD ORDERABLES Final Result Performing Organization Address [facility] Co de Phone Number [facility] [phone] [place] [address] * (ABNORMAL) CBC with auto differential (03/16/2024 10:52 AM HAND INSERTER OPERATOR) WBC 6.1 3.8 - 9.9 K/cumm Hgb 14.5 13.0 - 17.5 g/dL [facility] Hct 45.9 38.9 - 50.3 % [facility] Plt 255 150 - 400 K/cumm [facility] MPV 10.7 9.1 - 12.3 fL [facility] RBC 4.77 4.30 - 5.80 M/cumm [facility] MCV 96.2 81.3 - 96.4 fL [facility] MCH 30.4 27.1 - 33.3 pg [facility] MCHC 31.6(L) 32.3 - 35.7 g/dL [facility] RDW CV 12.5 11.1 - 14.9 % [facility] RDW SD 44.8 35.7 - 48.1 fL [facility] NRBC abs 0.00 0.00 - 0.01 K/cumm [facility] Blood 03/16/2024 10:5 2 AM HAND INSERTER OPERATOR 03/16/2024 3:31 PM HAND INSERTER OPERATOR Lam Torres MD LAB BLOOD ORDERABLES Final Result Performing Organization Address [facility] Co de Phone Number [facility] [id number] Department [place] [address] * (ABNORMAL) Lipid panel (03/16/2024 10:52 AM HAND INSERTER OPERATOR) Cholesterol 288(H) 30 - 199 mg/dL Comment: Interpretive Data Ages < or = 19 years Acceptable: <170 mg/dL Borderline high: 170-199 mg/dL High: >or= 200 mg/dL Ages > or = 20 years Desirable: <200 mg/dL Borderline high: 200-239 mg/dL High: >or= 240 mg/dL Literature References: 1. Expert Panel on Integrated Guidelines for Cardiovascular Health and Risk Reduction in Children and Adolescents. Pediatrics 2011;128:S213 2. NCEP Expert Panel. Circulation 2004;110:227 Current Interpretive Data was last revised on 2017. Triglycerides 139 <=149 mg/dL [facility] Comment: Interpretive Data Ages < or = 9 years Acceptable: <75 mg/dL Borderline high: 75-99 mg/dL High: >or= 100 mg/dL Ages 10 to 20 years Acceptable: <90 mg/dL Borderline high: 90-129 mg/dL High: >or= 130 mg/dL Ages > or = 20 years Desirable: <150 mg/dL Borderline high: 150-199 mg/dL High: 200-499 mg/dL Very high: >or= 499 mg/dL Literature References: 1. Expert Panel on Integrated Guidelines for Cardiovascular Health and Risk Reduction in Children and Adolescents. Pediatrics 2011;128:S213 2. NCEP Expert Panel. Circulation 2004;110:227 Current Interpretive Data was last revised on 2017. HDL 49 >=40 mg/dL [facility] Comment: Interpretive Data Ages < or = 19 years Acceptable: >45 mg/dL Borderline low: 40-45 mg/dL Low: <40 mg/dL Ages > or = 20 years Desirable: >or= 60 mg/dL Low: <40 mg/dL Literature References: 1. Expert Panel on Integrated Guidelines for Cardiovascular Health and Risk Reduction in Children and Adolescents. Pediatrics 2011;128:S213 2. NCEP Expert Panel. Circulation 2004;110:227 Current Interpretive Data was last revised on 2017. LDL, calculated 213(H) <=129 mg/dL [facility] Comment: Interpretive Data Ages < or = 19 years Acceptable: <110 mg/dL Borderline high: 110-129 mg/dL High: >or= 130 mg/dL Ages > or = 20 years Optimal: <100 mg/dL Near optimal: 100-129 mg/dL Borderline high: 130-159 mg/dL High: >160 mg/dL Calculated using the Jigar LDL-C estimating equation. This equation was implemented on 2023. Prior to this date LDL-C was estimated using the Friedewald equation. Literature References: 1. Expert Panel on Integrated Guidelines for Cardiovascular Health and Risk Reduction in Children and Adolescents. Pediatrics 2011;128:S213 2. NCEP Expert Panel. Circulation 2004;110:227 3. Jigar Hendrickson et al. ASTRID Cardiol. 2020 June 25;5(5):540-548. doi: 10.1001/jamacardio.2020.0013 Current Interpretive Data was last revised on 2023. Non-HDL Cholesterol 239 mg/dL [facility] Comment: Interpretive Data Ages < or = 19 years Acceptable: <120 mg/dL Borderline high: 120-144 mg/dL High: >145 mg/dL Ages > or = 20 years When triglycerides are >200 mg/dL, Non-HDL cholesterol is a secondary target of therapy with treatment goals that are 30 mg/dL greater than the LDL cholesterol target. Literature References: 1. Expert Panel on Integrated Guidelines for Cardiovascular Health and Risk Reduction in Children and Adolescents. Pediatrics 2011;128:S213 2. NCEP Expert Panel. Circulation 2004;110:227 Current Interpretive Data was last revised on 2017. Chol/HDL ratio 6 [facility] Blood 03/16/2024 10:5 2 AM HAND INSERTER OPERATOR 03/16/2024 3:31 PM HAND INSERTER OPERATOR us Lam Torres MD LAB BLOOD ORDERABLES Final Result [facility] [address] Department [place] [address] * Comprehensive metabolic panel (03/16/2024 10:52 AM HAND INSERTER OPERATOR) Sodium 139 135 - 145 mmol/L Potassium, pl 4.5 3.3 - 4.9 mmol/L [facility] Chloride 103 97 - 110 mmol/L [facility] CO2 24 22 - 32 mmol/L [facility] Anion gap 12 2 - 15 mmol/L [facility] BUN 12 6 - 25 mg/dL [facility] Creatinine 0.99 0.80 - 1.30 mg/dL [facility] Glucose 96 70 - 199 mg/dL [facility] Comment: Interpretive Data Fasting glucose >/= 126 mg/dl is diagnostic for diabetes. Fasting is defined as no caloric intake for at least 8 hours. Fasting glucose between 100 mg/dl to 125 mg/dl is diagnostic of prediabetes. In a patient with classic symptoms of hyperglycemia or hyperglycemic crisis, a random glucose >/= 200 mg/dl is diagnostic for diabetes. In the absence of unequivocal hyperglycemia, results should be confirmed by repeat testing. The classification and Diagnosis of Diabetes Diabetes Care 2021; 46: S19-S40. Current interpretive data was last revised 2022. Calcium 9.6 8.5 - 10.3 mg/dL [facility] Bilirubin, total 0.4 0.1 - 1.2 mg/dL [facility] Protein, pl 7.5 6.5 - 8.5 g/dL [facility] Albumin 4.5 3.5 - 5.0 g/dL [facility] Alk phos 73 40 - 130 Units/L [facility] ALT 18 7 - 55 Units/L [facility] AST 22 10 - 50 Units/L [facility] Blood 03/16/2024 10:5 2 AM HAND INSERTER OPERATOR 03/16/2024 3:31 PM HAND INSERTER OPERATOR us Lam Torres MD LAB BLOOD ORDERABLES Final Result Performing Organization Address City/State/[facility] [place] Phone Number [facility] [address] [facility] Department [place] [address] * ECG 12-LEAD (03/16/2024 10:45 AM HAND INSERTER OPERATOR) Narrative Lam Torres MD - 03/16/2024 10:45 AM HAND INSERTER OPERATOR Lam Torres MD 03/16/2024 8:15 PM ECG 12 lead Date/Time: 03/16/2024 10:45 AM Performed by: Lam Torres MD Authorized by: Lam Torres MD Comparison: compared with previous ECG from 06/03/2019 Similar to previous ECG Rhythm: sinus rhythm Rate: normal QRS axis: left and normal Conduction: conduction normal ST Segments: ST segments normal T Waves: T waves normal Clinical impression: normal ECG Lam Torres MD ECG ORDERABLES Edited Resu lt - Final * PORTABLE/HOME SLEEP STUDY (01/28/2024 10:00 PM HAND INSERTER OPERATOR) Narrative González Almaraz MD - 01/28/2024 10:00 PM HAND INSERTER OPERATOR González Almaraz MD 01/30/2024 2:14 PM Portable/Home Sleep Study Date/Time: 01/28/2024 10:00 PM Performed by: González Almaraz MD Authorized by: González Almaraz MD González Almaraz MD SLEEP CENTER ORDERABLES Final Re sult * PSA screen (05/14/2023 10:33 AM CDT) PSA-Total 4.29 <=5.40 ng/mL Comment: Interpretive Data AGE SEX REFERENCE INTERVAL 0 minutes-150 years Female None 0 minutes-49 years Male None 50-59 years Male 0-3.90 60-69 years Male 0-5.40 70-79 years Male 0-6.20 80-150 years Male 0-6.20 The [place] PSA Total assay procedure was used. Results from different manufacturers or methods may not be comparable. Serial testing should be performed using the same method. Current interpretive data last revised 21. Blood 05/14/2023 10:3 3 AM CDT 05/14/2023 2:37 PM CDT Lam Torres MD LAB BLOOD ORDERABLES Final Result Performing Organization Address City/State/[place]IP [place] Phone Number [place] [address] [facility] [place] [address] * Hepatitis C antibody Blood (05/14/2023 10:33 AM CDT) Hep C Ab Nonreactive Nonreactive Comment: Interpretive Data Nonreactive: Antibodies to HCV not detected. Does NOT exclude the possibility of recent exposure to HCV. Equivocal: Equivocal for HCV antibodies. Supplemental molecular testing will be automatically performed to determine infection status in accordance with current CDC screening recommendations. Reactive: Positive for HCV antibodies. This may represent current or past HCV infection. Supplemental molecular testing will be automatically performed to determine current infection status in accordance with current CDC screening recommendations. Interpretive data was last revised on 2019. Blood 05/14/2023 10:3 3 AM CDT 05/14/2023 2:37 PM CDT us Lam Torres MD LAB MICROBIOLOGY - GENERAL ORDERABLES Final Result [facility] [address] [facility] Department [place] [address] * COLONOSCOPY (11/12/2019 8:06 AM CDT) Anatomical Region Laterality Modality Other Narrative Procedure Note Casa Mccracken MD - 11/12/2019 8:06 AM CDT ENDOSCOPY LAB Patient Name: Osiel Garcia Procedure Date: 11/12/2019 8:06 AM Date of : 1955 Admit Type: Outpatient Age: 64 Gender: Male Attending MD: Casa Mccracken M.D. Room: [facility] ENDOSCOPY ROOM 02 Note Status: Finalized Procedure: Colonoscopy Indications: Screening for colorectal malignant neoplasm, This isthe patient's first colonoscopy Providers: Casa Mccracken M.D. Referring MD: Jesus Browne M.D. Medicines: Monitored Anesthesia Care Complications: No immediate complications. Estimated Blood Loss: Estimated blood loss: none. Procedure: Pre-Anesthesia Assessment: - Immediately prior to administration of medications,the patient was re-assessed for adequacy to receivesedatives. The benefits, risks and alternatives of the procedureand sedation were discussed and informed consent wasobtained. All questions were answered. Please refer to the signed informed consent document in the medical record. Thescope was passed under direct vision. The [id number] introduced through the anus and advanced to the cecum, identified by appendiceal orifice and ileocecal valve.The colonoscopy was performed without difficulty. Thepatient tolerated the procedure well. The quality of the bowel preparation was evaluated using the BBPS (S[place]man Bowel Preparation Scale) with scores of: Right Colon = 2(minor amount of residual staining, small fragments of stool and/or opaque liquid, but mucosa seen well), Transverse Colon = 3 (entire mucosa seen well with no residual staining, small fragments of stool or opaque liquid)and Left Colon = 3 (entire mucosa seen well with noresidual staining, small fragments of stool or opaque liquid).The total BBPS score equals 8. The quality of the bowel preparation was good. The bowel preparation used was SUPREP. Bowel prep was administered using a splitdose. Findings: The perianal and digital rectal examinations were normal. The entire examined colon appeared normal. Impression: - The entire examined colon is normal. - No specimens collected. Recommendation: - Repeat colonoscopy in 10 years for surveillance. Casa Mccracken MD Casa Mccracken M.D. 11/12/2019 9:13:33 AM Number of Addenda: 0 Note Initiated On: 11/12/2019 8:06 AM Casa Mccracken MD ENDOSCOPY PROCEDURES Fi nal Result from Last 3 Months or Most Recently Relevant to Health Maintenance Insurance MEDICARE [employer] Member Subscriber Plan / Payer (Ef fective 2016-Present) Name:Osiel Garcia Relation to Subscriber:Self Name:Osiel Garcia Payer ID:[id number] Group ID:[id number] Type:COMMERCIAL Address: [place] [address] MEDICARE [employer] Member Subscriber Plan / Payer (Ef fective 2019-Present) Name:Osiel Garcia Relation to Subscriber:Self Name:Osiel Garcia Payer ID:[id number] Group ID:[id number] Type:COMMERCIAL Address: [address] [place] [address] MEDICARE [employer] Member Subscriber Plan / Payer (Ef fective 2019-Present) Name:Osiel Garcia Relation to Subscriber:Self Name:Osiel Garcia Payer ID:[id number] Group ID:[id number] Type:COMMERCIAL Address: [address] [place] [id number] Advance Directives For more information, please contact: [phone] * Full Code (Latest Code Status on File) Date Activated Date Inactivated Comments 12/02/2019 7:19 PM 12/08/2019 2:57 PM * Full Code Date Activated Date Inactivated Comments 11/12/2019 7:21 AM 11/12/2019 1:36 PM Care Teams Back End Developer Relationship Specialty Start Date End Date Lam Torres MD [address] [place] [id number] PCP - General Family Medicine 05/14/23 Khalif Ortega MD [employer] [place] [address] Referring Physician Otolaryngology 04/15/18 Carly Corea PA [address] [place] [address] Physician Clinical Trial Educator 05/14/23 Nette Durham MD [address] [place] [address] Consulting Physician Cardiology 05/14/23 Jesus Browne MD [address] [facility] [id number] [place] [address] Surgeon Surgical Critical Care 05/14/23 Rory Gooden MD [address] [id number] Consulting Physician Urology 05/14/23 Alec Sparks MD [address] [place], [place] [id number] Referring Physician Orthopedic Surgery 03/16/24 Macario Ignacio MD [address] [place] [address] Dermatology 03/16/24
--- OUTSIDE RECORDS SUMMARY | 2024-04-16 08:47 | XMS_ITS | Encounter Summary ---
Author Organization [facility] Address [facility] [place] [address] Care Team Providers Care Grant Coordinator Name Role Phone Nicky Jimenez MD Primary Care Provider None, Provider Primary Care Provider Unavaila ble Encounter Details Date Type Department Care Team (Late st Contact Info) Description 12/28/2019 Acomni Message Enc [facility] Family & Internal Medicine [facility] [address] [place] [address] Yvette Carlos, LINDA [address] [place] [address] RE: Question Social History Tobacco [...] documented as of this encounter Care Teams Grant Coordinator Relationship Specialty Start Date End Date Nicky Jimenez MD PCP - General 08/03/16 01/21/23 None, Provider, PCP - General UNKNOWN PHYSICIAN SPECIALTY 01/22/23 documented as of this encounter
--- OUTSIDE RECORDS SUMMARY | 2024-04-16 08:47 | XMS_ITS | Referral Summary ---
Author Organization [facility] Address [address] [facility] [place] [address] Care Team Providers Care Tying Machine Operator Name Role Phone Khalif Ortega MD Unavailable [phone] Lam Torres MD Primary Care Provider [phone] Carly Corea Unavailable [phone] Nette Durham MD Unavailable [phone] Jesus Browne MD Unavailable [phone] Rory Gooden MD Unavailable [phone] Alec Sparks MD Unavailable [phone] Macario Ignacio MD Unavailable [phone] Encounters Date Type Department Care Team Description 04/13/2024 Telephone [facility] Medical [facility] Primary Care at [address] [address] Lam Torres MD Medical Records Request 04/08/2024 12:30 PM REAL ESTATE LEASING AGENT Telemedicine [facility] Neuro Sleep [address] 6th Floor [address] [place] [address] González Almaraz MD KOBE (obstructive sleep apnea) (Primary Dx); BMI 32.0-32.9,adult 03/17/2024 Telephone [facility] Medical [facility] Primary Care at [address] [address] Lam Torres MD PA for Nexletol 03/16/2024 Orders Only [facility] Medical Group Primary Care at [address] [address] Lam Torres MD 03/16/2024 10:52 AM REAL ESTATE LEASING AGENT - 03/16/2024 11:59 PM REAL ESTATE LEASING AGENT Hospital Encounter [address] [address] Primary hypertension; Mixed hyperlipidemia Discharge Disposition: Discharge to home or self care 03/16/2024 11:30 AM REAL ESTATE LEASING AGENT Ancillary Procedure [facility] Imaging at [address] [phone] 03/16/2024 10:45 AM REAL ESTATE LEASING AGENT Lab [facility] Outpatient Lab at [address] [phone] Hyperlipidemia (Primary Dx); Hypertension 03/16/2024 10:15 AM REAL ESTATE LEASING AGENT Office Visit [facility] Primary Care at [address] [address] Lam Torres MD Mixed hyperlipidemia (Primary Dx); Primary hypertension; Melanoma of right upper arm (HCC); Preoperative evaluation to rule out surgical contraindication 02/27/2024 4:30 PM REAL ESTATE LEASING AGENT Procedure visit [facility] Otolaryngology [address], [address] [place] [address] Paige Rivera Au.D. Sensory hearing loss, bilateral (Primary Dx) 02/21/2024 Telephone [facility] Otolaryngology [address], [address] [place] [address] Dorothy Leon 02/12/2024 11:00 AM REAL ESTATE LEASING AGENT Procedure visit [facility] Otolaryngology [address], [address] [place] [address] Yoko Sim CCC-A Sensorineural hearing loss (SNHL) of both ears (Primary Dx); Sensorineural hearing loss, bilateral 02/05/2024 Orders Only [facility] Neuro Sleep [address] 6th [address] [place] [address] González Almaraz MD KOBE (obstructive sleep apnea) (Primary Dx) 02/05/2024 Telephone [facility] Neuro Sleep [address] 6th [address] [place] [address] Lexi Nicole RN DME order 02/04/2024 Orders Only [facility] Medical Group Primary Care at [address] [address] Mya Chris NP Thrombosed hemorrhoids (Primary Dx) 01/30/2024 Telephone [facility] Neuro Sleep [address] 6th [address] [place] [address] Yanet Gonzales CMA 01/29/2024 3:00 PM REAL ESTATE LEASING AGENT Office Visit [facility] Medical [facility] Primary Care at [address] [address] Mya Chris NP Thrombosed hemorrhoids (Primary Dx); Primary hypertension 01/28/2024 10:00 AM REAL ESTATE LEASING AGENT Procedure visit [facility] Neuro Sleep [address] 6th [address] [place] [address] KOBE (obstructive sleep apnea) (Primary Dx) from Last 3 Months Allergies Active Allergy Reactions Criticality Noted Date Comments Lppjidb-Zga-Lnz Reductase Inhibitors Dizziness,Mental status changes Medium 05/28/2023 [...] 03/17/2024 Assessment & Plan (03/17/2024 1:47 PM REAL ESTATE LEASING AGENT): addendum: reviewed labs, xr, ekg. he has significantly high cholesterol, with h/o statin intolerance, which we are going to treat. otherwise, by Yogesh he is at 3.9% risk of major [...] Epidural catheter with PAIN management following Dilaudid BALING MACHINE OPERATOR Planning to keep chandler until epidural discontinued. Ventral hernia 11/17/2019 Overview (11/17/2019): Added automatically from request for surgery [id number] Assessment & Plan (12/07/2019 1:23 PM CDT): 12/01 [facility] OR Repair of open ventral hernia with bilateral posterior component separation with myofascial cutaneous release with synthetic mesh placed in the retrorectal space, inferior sternal reconstruction. RLQ drain subq LLQ drain above mesh -NPO, NG fell out post op. ARBF -Epidural/BALING MACHINE OPERATOR,. Chandler until epidural removed. -[facility] in [...] (10/28/2019): Added automatically from request for surgery [id number] Hyperlipidemia 06/03/2019 Assessment & Plan (07/14/2020 9:55 [...] therapy. Assessment & Plan (01/13/2020 4:46 PM REAL ESTATE LEASING AGENT): We will repeat lipid panel today, since [...] weight. Assessment & Plan (01/13/2020 4:47 PM REAL ESTATE LEASING AGENT): He has lost 30 pounds since our [...] Hypertension Assessment & Plan (01/29/2024 4:34 PM REAL ESTATE LEASING AGENT): BP elevated in office today, pt notes it is always high in office and is normal range at home. Continues Diltiazem 240 mg daily. Assessment & Plan (07/14/2020 9:55 AM CDT): Home BP has been adequately controlled, <140/90. He will continue on diltiazem and HCTZ and let me know if his home readings are consistently higher. Assessment & Plan (01/13/2020 4:47 PM REAL ESTATE LEASING AGENT): His home BP has been well controlled [...] Date Resolved Date Familial hypercholesteremia 06/03/2019 01/13/2020 Immunizations Immunization Administration Dates Next Due DTaP, Unspecified 07/13/2015 Influenza, Quadrivalent, Hig h Dose, Preservative Free, Intrr 12/06/2020 Influenza, Quadrivalent, Rec ombinant, Egg Free, Preservative Free, Intramuscular 02/09/2020 Influenza, Unspecified 03/16/2024(Deferr ed: Patient Refused),05/14/2023(Deferred: Patient Refused),02/25/2023(Deferred: Patient Refused),02/25/2022(Deferred: Patient Refused),02/25/2022(Deferred: Patient Refused) Pneumococcal Conjugate PCV 13 04/20/2019 Pneumococcal Polysaccharide PPV23 06/21/2020 Tdap 07/13/2015 ZOSTER Recombinant 04/07/2020,02/09/2020 Social History Tobacco Use Types Packs/Day Years [...] on file Legal Sex Male 8:02 AM REAL ESTATE LEASING AGENT Gender Identity Male 12/16/2020 9:34 AM CDT Sexual Orientation Straight 10/26/2019 10 :23 AM CDT 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 Not on file Not on file Not on file Last Filed Vital Signs Vital Sign Reading Time Taken Comments Blood Pressure 136/80 03/16/2024 10:14 AM REAL ESTATE LEASING AGENT Pulse 70 03/16/2024 10:14 AM REAL ESTATE LEASING AGENT Temperature 36.1 C (96.9 F) 03/16/2024 10:14 AM REAL ESTATE LEASING AGENT Respiratory Rate 16 03/16/2024 10:14 AM REAL ESTATE LEASING AGENT Oxygen Saturation 97% 03/16/2024 10:14 AM REAL ESTATE LEASING AGENT Inhaled Oxygen Concentration - - Weight 102.1 kg (225 lb) 04/08/2024 12:58 PM REAL ESTATE LEASING AGENT Height 180.3 cm (5' 11 ) 04/08/2024 12:58 PM REAL ESTATE LEASING AGENT Body Mass Index 31.38 04/08/2024 12:58 PM REAL ESTATE LEASING AGENT Plan of Treatment Not on file Medical Devices Implanted Type Area Store Administrative Assistant Device Identifier Shelf Expiration Date Model / Serial / Lot [employer]/C R Bard [id number] Monofilament Soft Lightweight Low Profile Square - [id number] Implanted:Qty: 1 on 12/02/2019 by Jesus Browne MD at [facility] Mesh N/A: Abdomen [employer]/C R Bard [id number] 01/23/2024 [id number] / / [id number] Nucleus Ci 632 Profile Plus Cochlear Implant-09/23/19 21 Implanted:09/22 by Efra Bajwa MD (Quantity not on file) Ear Procedures Procedure Name Priority Date/Time Associated Diagnosis Comments XR CHEST PA LATERAL 2 VIEWS Routine 03/16/2024 10:59 AM REAL ESTATE LEASING AGENT Preoperative evaluation to rule out surgical contraindication EGFR Routine 03/16/2024 10:52 AM REAL ESTATE LEASING AGENT Primary hypertension DIFFERENTIAL AUTO Routine 03/16/2024 10: 52 AM REAL ESTATE LEASING AGENT Primary hypertension LIPID PANEL Routine 03/16/2024 10:52 AM REAL ESTATE LEASING AGENT Mixed hyperlipidemia COMPREHENSIVE METABOLIC PANEL Routine 03/16/2024 10:52 AM REAL ESTATE LEASING AGENT Primary hypertension CBC WITH AUTO DIFFERENTIAL Routine 03/16/2024 10:52 AM REAL ESTATE LEASING AGENT Primary hypertension ECG 12-LEAD Routine 03/16/2024 10:45 AM REAL ESTATE LEASING AGENT Preoperative evaluation to rule out surgical contraindication PORTABLE/HOME SLEEP STUDY Routine 01/28/2024 10:00 PM REAL ESTATE LEASING AGENT KOBE (obstructive sleep apnea) HEPATITIS C ANTIBODY Routine 05/14/2023 10:33 AM CDT Screening for hepatitis C declined PSA SCREEN Routine 05/14/2023 10:33 AM CDT Screening PSA (prostate specific antigen) COLONOSCOPY 11/12/2019 8:06 AM CDT from Last 3 Months or Most Recently Relevant to Health Maintenance Results * XR Chest Pa Lateral 2 Views (03/16/2024 10:59 AM REAL ESTATE LEASING AGENT) Anatomical Region Laterality Modality Body, Chest N/A Digital Radiogra phy 03/17/2024 11:0 2 AM REAL ESTATE LEASING AGENT Narrative 03/17/2024 11:05 AM REAL ESTATE LEASING AGENT EXAM DESCRIPTION: XR CHEST PA LATERAL 2 [...] 11:05 AM - Electronically signed by Boby Perla M.D. KR T: Report ID: [id number] Reading Location: [id number] Procedure Note Boby Perla MD - 03/17/2024 [...] 11:05 AM - Electronically signed by Boby Perla M.D. KR T: Report ID: [id number] Reading Location: [id number] Lam Torres MD IMG XR PROCEDURES Final Res ult * eGFR (03/16/2024 10:52 AM REAL ESTATE LEASING AGENT) eGFR 82 >=60 mL/min/1. 73 m2 Comment: [...] of Race in Diagnosing Kidney Disease, JASN 2020). The CKD-EPI equation should not be used for patients with unstable renal function and has not been validated in children and those over 70. Current interpretive data was last reviewed 2020. Blood 03/16/2024 10:5 2 AM REAL ESTATE LEASING AGENT 03/16/2024 4:02 PM REAL ESTATE LEASING AGENT Lam Torres MD LAB BLOOD ORDERABLES Final Result [facility] [address] Department [place] [address] * Differential, auto (03/16/2024 10:52 AM REAL ESTATE LEASING AGENT) Neutrophil abs 3.0 1.5 - 6.5 K/cumm Imm gran abs 0.0 0.0 - 0.1 K/cumm [facility] Lymphocyte abs 2.5 0.8 - 3.3 K/cumm [facility] Monocyte abs 0.5 0.2 - 0.8 K/cumm [facility] Eosinophil abs 0.1 0.0 - 0.5 K/cumm [facility] Basophil abs 0.0 0.0 - 0.1 K/cumm [facility] Neutrophil pct 48.5 % [facility] Comment: Interpretive Data Percent cell count reference ranges are not reported, since discordance with absolute values may lead to misinterpretation of CBC data. Current Interpretive Data was last revised on 2017. Imm gran pct 0.5 % [facility] Comment: Interpretive Data Percent cell count reference ranges are not reported, since discordance with absolute values may lead to misinterpretation of CBC data. Current Interpretive Data was last revised on 2017. Lymphocyte pct 40.4 % [facility] Comment: Interpretive Data Percent cell count reference ranges are not reported, since discordance with absolute values may lead to misinterpretation of CBC data. Current Interpretive Data was last revised on 2017. Monocyte pct 8.3 % [facility] Comment: Interpretive Data Percent cell count reference ranges are not reported, since discordance with absolute values may lead to misinterpretation of CBC data. Current Interpretive Data was last revised on 2017. Eosinophil pct 1.6 % [facility] Comment: Interpretive Data Percent cell count reference ranges are not reported, since discordance with absolute values may lead to misinterpretation of CBC data. Current Interpretive Data was last revised on 2017. Basophil pct 0.7 % [facility] Comment: Interpretive Data Percent cell count reference ranges are not reported, since discordance with absolute values may lead to misinterpretation of CBC data. Current Interpretive Data was last revised on 2017. Blood 03/16/2024 10:5 2 AM REAL ESTATE LEASING AGENT 03/16/2024 3:31 PM REAL ESTATE LEASING AGENT Lam Torres MD LAB BLOOD ORDERABLES Final Result Performing Organization Address City/[facility] Co de Phone Number [facility] [place] [address] Department [place] [employer] [place] [address] * (ABNORMAL) CBC with auto differential (03/16/2024 10:52 AM REAL ESTATE LEASING AGENT) WBC 6.1 3.8 - 9.9 K/cumm Hgb [...] [facility] CH Blood 03/16/2024 10:5 2 AM REAL ESTATE LEASING AGENT 03/16/2024 3:31 PM REAL ESTATE LEASING AGENT Lam Torres MD LAB BLOOD ORDERABLES Final Result Performing Organization Address City/[facility] Co de Phone Number [facility] [place] [address] Department [place] [address] * (ABNORMAL) Lipid panel (03/16/2024 10:52 AM REAL ESTATE LEASING AGENT) Cholesterol 288(H) 30 - 199 mg/dL Comment: [...] Pediatrics 2011;128:S213 2. NCEP Expert Panel. Circulation 2003;110:227 Current Interpretive Data was last revised on 2017. HDL 49 >=40 mg/dL [facility] Comment: Interpretive Data Ages < or = 19 years Acceptable: >45 mg/dL Borderline low: 40-45 mg/dL Low: <40 mg/dL Ages > or = 20 years Desirable: >or= 60 mg/dL Low: <40 mg/dL Literature References: 1. Expert Panel on Integrated Guidelines for Cardiovascular Health and Risk Reduction in Children and Adolescents. Pediatrics 2011;128:S213 2. NCEP Expert Panel. Circulation 2003;110:227 Current Interpretive Data was last revised on 2017. LDL, calculated 213(H) <=129 mg/dL [facility] Comment: Interpretive Data Ages < or = 19 years Acceptable: <110 mg/dL Borderline high: 110-129 mg/dL High: >or= 130 mg/dL Ages > or = 20 years Optimal: <100 mg/dL Near optimal: 100-129 mg/dL Borderline high: 130-159 mg/dL High: >160 mg/dL Calculated using the Kimball LDL-C estimating equation. This equation was implemented on 2023. Prior to this date LDL-C was estimated using the Friedewald equation. Literature References: 1. Expert Panel on Integrated Guidelines for Cardiovascular Health and Risk Reduction in Children and Adolescents. Pediatrics 2011;128:S213 2. NCEP Expert Panel. Circulation 2004;110:227 3. Jigar M et al. ASTRID Cardiol. 2020 June 25;5(5):540-548. doi: 10.1001/jamacardio.2020.0013 Current Interpretive Data was last revised on 2023. Non-HDL Cholesterol 239 mg/dL [facility] Comment: Interpretive Data Ages < or = [...] [facility] CH Blood 03/16/2024 10:5 2 AM REAL ESTATE LEASING AGENT 03/16/2024 3:31 PM REAL ESTATE LEASING AGENT Lam Torres MD LAB BLOOD ORDERABLES Final Result [facility] [address] Department [place] [address] * Comprehensive metabolic panel (03/16/2024 10:52 AM REAL ESTATE LEASING AGENT) Sodium 139 135 - 145 mmol/L Potassium, pl 4.5 3.3 - 4.9 mmol/L [facility] Chloride 103 97 - 110 mmol/L [facility] CH CO2 24 22 - 32 mmol/L [facility] Anion gap 12 2 - 15 mmol/L [facility] CH BUN 12 6 - 25 mg/dL [facility] Creatinine 0.99 0.80 - 1.30 mg/dL [facility] Glucose 96 70 - 199 mg/dL [facility] Comment: Interpretive Data Fasting glucose >/= 126 [...] [facility] CH Blood 03/16/2024 10:5 2 AM REAL ESTATE LEASING AGENT 03/16/2024 3:31 PM REAL ESTATE LEASING AGENT us Lam Torres MD LAB BLOOD ORDERABLES Final Result Performing Organization Address City/State/ZIP [facility] Phone Number [facility] [address] [facility] Department [place] [address] * ECG 12-LEAD (03/16/2024 10:45 AM REAL ESTATE LEASING AGENT) Narrative Lam Torres MD - 03/16/2024 10:45 AM REAL ESTATE LEASING AGENT Lam Torres MD 03/16/2024 8:15 PM ECG 12 lead Date/Time: 03/16/2024 10:45 AM Performed by: Lam Torres MD Authorized by: Lam Torres MD Comparison: compared with previous ECG from 06/03/2019 Similar to previous ECG Rhythm: sinus rhythm Rate: normal QRS axis: left and normal Conduction: conduction normal ST Segments: ST segments normal T Waves: T waves normal Clinical impression: normal ECG us Lam Torres MD ECG ORDERABLES Edited Resu lt - Final * PORTABLE/HOME SLEEP STUDY (01/28/2024 10:00 PM REAL ESTATE LEASING AGENT) Narrative González Almaraz MD - 01/28/2024 10:00 PM REAL ESTATE LEASING AGENT González Almaraz MD 01/30/2024 2:14 PM Portable/Home [...] ORDERABLES Final Result Performing Organization Address City/State/ZIP [facility] Phone Number [facility] [address] [facility] Department [place] [address] * Hepatitis C antibody Blood (05/14/2023 10:33 [...] LAB MICROBIOLOGY - [place] [address] [facility] Department of Laboratories [place] [id number] * COLONOSCOPY (11/12/2019 8:06 AM CDT) Anatomical Region Laterality Modality Other Narrative Procedure Note Casa Mccracken MD - 11/12/2019 8:06 AM CDT ENDOSCOPY LAB Patient Name: Osiel Garcia Procedure Date: 11/12/2019 8:06 AM Date of : 1955 Admit Type: Outpatient Age: 64 Gender: Male Attending MD: Casa Mccracken M.D. Room: [facility] ENDOSCOPY ROOM 02 Note Status: Finalized Procedure: Colonoscopy Indications: Screening for colorectal malignant neoplasm, This isthe patient's first colonoscopy Providers: Casa Mccracken M.D. Referring MD: Jesus Brwone M.D. Medicines: Monitored Anesthesia Care Complications: No [...] Thescope was passed under direct vision. The [id number] introduced through the anus and advanced to the cecum, identified by appendiceal orifice and ileocecal valve.The colonoscopy was performed without difficulty. Thepatient tolerated the procedure well. The quality of the bowel preparation was evaluated using the BBPS (Thompson Bowel Preparation Scale) with scores of: Right [...] 0 Note Initiated On: 11/12/2019 8:06 AM us Casa Mccracken MD ENDOSCOPY PROCEDURES Fi nal Result from Last 3 Months or Most Recently Relevant to Health Maintenance Insurance MEDICARE [employer] Member Subscriber Plan / Payer (Ef fective 2016-Present) Name:Osiel Garcia Relation to Subscriber:Self Name:Osiel Garcia Payer ID:[id number] Group ID:[id number] Type:[employer] Address: [place] [address] MEDICARE [employer] Member Subscriber Plan / Payer ( fective 2019-Present) Name:Osiel Garcia Relation to Subscriber:Self Name:Osiel Garcia Payer ID:[id number] Group ID:[id number] Type:COMMERCIAL Address: [address] [place] [address] MEDICARE [employer] Member Subscriber Plan / Payer ( fective 2019-Present) Name:Osiel Garcia Relation to Subscriber:Self Name:Osiel Garcia Payer ID:[id number] Group ID:[id number] Type:COMMERCIAL Address: [address] [place] [address] Advance Directives For more information, please contact: [phone] * Full Code (Latest Code Status on File) Date Activated Date Inactivated Comments 12/02/2019 7:19 PM 12/08/2019 2:57 PM * Full Code Date Activated Date Inactivated Comments 11/12/2019 7:21 AM 11/12/2019 1:36 PM Care Teams Tying Machine Operator Relationship Specialty Start Date End Date Lam Torres MD [address] [place] [address] PCP - General Family Medicine 05/14/23 Khalif Ortega MD [facility] [place] [address] Referring Physician Otolaryngology 04/15/18 Carly Corea PA [address] [place] [address] Physician Brokerage Office Manager 05/14/23 Nette Durham MD [address] [place] [address] Consulting Physician Cardiology 05/14/23 Jesus Browne MD [address] [facility] [id number] [place] [address] Surgeon Surgical Critical Care 05/14/23 Rory Gooden MD [address] [address] Consulting Physician Urology 05/14/23 Alec Sparks MD [address] [place] [address] Referring Physician Orthopedic Surgery 03/16/24 Macario Ignacio MD [address] [place] [address] Dermatology 03/16/24
--- OUTSIDE RECORDS SUMMARY | 2024-04-16 08:47 | XMS_ITS | Clinical Summary ---
Author Organization [facility] Address [address] [place] [address] Care Team Providers Care Meter/Relay Technician Name Role Phone Nicky Jimenez MD Primary Care Provider [phone] Macario Ignacio MD Unavailable [phone] Source Comments [facility],non-owned Affiliates and Associated Physician Practices is amultiple site organization consisting of ambulatory clinics and hospital sitesin [place], [place], [place] and [place]. This disclosure is being madepursuant to the Care Everywhere program and may not contain all information available regarding this patient. Last updated 17.[facility] Theme Travel News (TTN) Allergies Active Allergy Reactions Criticality Noted Date Comments Hmg-Coa-R Inhibitors Dizziness,Psychiatric Medium /03/2023 Medications * Be aware that medications may not be up to date on this document. Alwaysverify current medications with the patient. 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) from Last 3 Months Social History Tobacco Use Types Packs/Day Years Used Date Smoking Tobacco: Never Smokeless Tobacco: Never Tobacco Cessation:Counseling Given: No Alcohol Use Standard Drinks/Week Comments Yes 0 (1 standard drink = 0.6 oz pur e alcohol) Sex and Gender Information Value Date Recorded Sex Assigned at Male 02/11/2023 2:10 PM INDUSTRIAL RELATIONS REPRESENTATIVE Gender Identity Male 02/11/2023 2:10 PM INDUSTRIAL RELATIONS REPRESENTATIVE Sexual Orientation Straight 02/11/2023 2: 10 PM INDUSTRIAL RELATIONS REPRESENTATIVE Last Filed Vital Signs Vital Sign Reading Time Taken Comments Blood Pressure 141/87 09/11/2023 9:31 AM CDT Pulse 76 09/11/2023 9:31 AM CDT Temperature 36.4 C (97.6 F) 09/11/2023 9:31 AM CDT Respiratory Rate 18 09/11/2023 9:31 AM CDT Oxygen Saturation 97% 09/11/2023 9:31 AM CDT Inhaled Oxygen Concentration - - Weight 104.5 kg (230 lb 6.4 oz) 09/11/2023 9:31 AM CDT Height 180.3 cm (5' 11 ) 09/11/2023 9:31 AM CDT Body Mass Index 32.13 09/11/2023 9:31 AM CDT Plan of Treatment Health Maintenance Due Date Last Done Comments COLOGUARD (AGES 45-75) - COL ON CA SCREENING [address] COLONOGRAPHY - COLON CA SCREENING 1954 FIT - COLON CA SCREENING 1954 FLEX SIG - COLON CA SCREENING 1954 LIPID TESTING 1954 MEDICARE AWV 12 MONTHS 1954 HEPATITIS C SCREENING 03/28/1972 DTAP/TDAP/TD VACCINES (1 - Tdap) 1973 PNEUMOCOCCAL VACCINE 50+ (1 of 1 - PCV) 2004 ZOSTER VACCINE (1 of 2) 2004 COVID-19 VACCINE ( - 2023-2 5 season) 2023 INFLUENZA VACCINE (#1) 2023 02/09/2020 DEPRESSION SCREENING 02/26/2024 SCREENING FOR DIABETES 02/11/2026 02/11/2023 Respiratory Syncytial Virus (RSV) Vaccine Pt: or over 60 yrs (1 - 1-dose 75+ series) 2029 COLONOSCOPY - COLON CA SCREENING 11/11/2029 11/12/19 20 Colorectal Cancer Screening 11/11/2029 HEPATITIS B VACCINE Aged Out No longe r eligible based on patient's age to complete this topic HIB VACCINE Aged Out No longer eligi ble based on patient's age to complete this topic HPV VACCINE Aged Out No longer eligi ble based on patient's age to complete this topic MENINGOCOCCAL (Group B) VACCINE Aged Out No longer eligible based on patient's age to complete this topic MENINGOCOCCAL VACCINE Aged Out No shaquille cliff eligible based on patient's age to complete this topic Procedures Procedure Name Priority Date/Time Associated Diagnosis Comments COMPREHENSIVE METABOLIC PANEL Routine 02/11/2023 3:40 PM INDUSTRIAL RELATIONS REPRESENTATIVE Melanoma of right upper arm (HCC) Melanoma of scalp (HCC) from Last 3 Months or Most Recently Relevant to Health Maintenance Results * COMPREHENSIVE METABOLIC PANEL (02/11/2023 3:40 PM INDUSTRIAL RELATIONS REPRESENTATIVE) BUN 11 7 - 26 mg/dL 02/11/2023 5:03 PM [facility] Creatinine 0.83 0.71 - 1.16 mg/dL 02/11/2023 5:03 PM [facility] Sodium 139 136 - 145 mmol/L 02/11/2023 5:03 PM [facility] Potassium 4.2 3.5 - 4.5 mmol/L 02/11/2023 5:03 PM [facility] Chloride 107 98 - 107 mmol/L 02/11/2023 5:03 PM [facility] CO2 25 22 - 29 mmol/L 02/11/2023 5:03 PM [facility] Glucose 87 70 - 115 mg/dL 02/11/2023 5:03 PM [facility] Calcium 9.3 8.4 - 10.2 mg/dL 02/11/2023 5:03 PM [facility] Protein Total 7.2 6.0 - 8.3 g/dL 02/11/2023 5:03 PM [facility] Albumin 4.0 3.4 - 5.0 g/dL 02/11/2023 5:03 PM [facility] Bilirubin Total 0.6 0.2 - 1.2 mg/dL 02/11/2023 5:03 PM [facility] Alkaline Phosphatase 62 40 - 150 U/L 02/11/2023 5:03 PM [facility] ALT 27 5 - 55 U/L 02/11/2023 5:03 PM [facility] AST 20 5 - 34 U/L 02/11/2023 5:03 PM [facility] Anion Gap 7 6 - 16 02/11/2023 5:03 PM [facility] BUN/Creatinine Ratio 13 7 - 23 02/11/2023 5:03 PM [facility] Osmolality Calculated 287 275 - 295 mOsm/kg 02/11/2023 5:03 PM [facility] Albumin/Globulin Ratio 1.3 1.1 - 2.3 02/11/2023 5:03 PM [facility] eGFR by CKD-EPI >90 >=90 mL/min/1.7 3 m2 02/11/2023 5:03 PM [facility] Blood BLOOD SPECIMEN / Unknown Lab Venipuncture / Unknown 02/11/2023 3:40 PM INDUSTRIAL RELATIONS REPRESENTATIVE 02/11/2023 4:33 PM [facility] Kevin Hirsch MD LAB - CHEMISTRY LIBAN AREVALO [facility] Organization Address City/State/ZIP Co de Phone Number [facility] [address] [place] [address], [facility] [phone] from Last 3 Months or Most Recently Relevant to Health Maintenance Care Teams Meter/Relay Technician Relationship Specialty [place] [address] [place] [address] PCP - General Internal Medicine 02/08/23 Macario Ignacio MD [facility] [address] [place] [phone] Referring Physician Dermatology 02/08/23
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
--- OUTSIDE RECORDS SUMMARY | 2024-04-16 08:47 | XMS_ITS | Referral Summary ---
Author Organization [facility] Address [address] [place] [address] Care Team Providers Care Group Exercise Instructor Name Role Phone Nicky Jimenez MD Primary Care Provider [phone] Macario Ignacio MD Unavailable [phone] Source Comments [facility],non-owned Affiliates and Associated Physician Practices is amultiple site organization consisting of ambulatory clinics and hospital sitesin [place], [place], [place] and [place]. This disclosure is being madepursuant to the Care Everywhere program and may not contain all information available regarding this patient. 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 Alwaysverify current medications with the patient. Medication Sig Dispensed Refills Start Date End Date Status [facility] Active ascorbic acid (Vitamin C) 250 MG tablet Take 1 (one) tablet by mouth once daily Active B Complex Vitamins (B COMPLEX 1 PO) Active cephalexin (Keflex) 500 MG capsule Take 1 (one) capsule by mouth 3 times daily 30 capsule 02/21/2023 Active Active Problems Problem Noted Date Diagnosed Date Melanoma of right upper arm 02/11/2023 Social History Tobacco Use Types Packs/Day Years Used Date Smoking Tobacco: Never Smokeless Tobacco: Never Tobacco Cessation:Counseling Given: No Alcohol Use Standard Drinks/Week Comments Yes 0 (1 standard drink = 0.6 oz pur e alcohol) Sex and Gender Information Value Date Recorded Sex Assigned at Male 02/11/2023 2:10 PM COTTON PICKER Gender Identity Male 02/11/2023 2:10 PM COTTON PICKER Sexual Orientation Straight 02/11/2023 2: 10 PM COTTON PICKER Last Filed Vital Signs Vital Sign Reading [...] 09/11/2023 9:31 AM CDT Plan of Treatment Not on file Procedures Procedure Name Priority Date/Time Associated Diagnosis Comments COMPREHENSIVE METABOLIC PANEL Routine 02/11/2023 3:40 PM COTTON PICKER Melanoma of right upper arm (HCC) Melanoma of scalp (HCC) from Last 3 Months or Most Recently Relevant to Health Maintenance Results * COMPREHENSIVE METABOLIC PANEL (02/11/2023 3:40 PM COTTON PICKER) BUN 11 7 - 26 mg/dL 02/11/2023 5:03 PM [facility] Creatinine 0.83 0.71 - 1.16 mg/dL 02/11/2023 5:03 PM [facility] Sodium 139 136 - 145 mmol/L 02/11/2023 5:03 PM [facility] Potassium 4.2 3.5 - 4.5 mmol/L 02/11/2023 5:03 PM [facility] Chloride 107 98 - 107 mmol/L 02/11/2023 5:03 PM [facility] CO2 25 22 - 29 mmol/L 02/11/2023 5:03 PM [facility] Glucose 87 70 - 115 mg/dL 02/11/2023 5:03 PM [facility] Calcium 9.3 8.4 - 10.2 mg/dL 02/11/2023 5:03 PM [facility] Protein Total 7.2 6.0 - 8.3 g/dL 02/11/2023 5:03 PM [facility] Albumin 4.0 3.4 - 5.0 g/dL 02/11/2023 5:03 PM [facility] Bilirubin Total 0.6 0.2 - 1.2 mg/dL 02/11/2023 5:03 PM [facility] Alkaline Phosphatase 62 40 - 150 U/L 02/11/2023 5:03 PM [facility] ALT 27 5 - 55 U/L 02/11/2023 5:03 PM [facility] AST 20 5 - 34 U/L 02/11/2023 5:03 PM [facility] Anion Gap 7 6 - 16 02/11/2023 5:03 PM [facility] BUN/Creatinine Ratio 13 7 - 23 02/11/2023 5:03 PM [facility] Osmolality Calculated 287 275 - 295 mOsm/kg 02/11/2023 5:03 PM [facility] Albumin/Globulin Ratio 1.3 1.1 - 2.3 02/11/2023 5:03 PM [facility] eGFR by CKD-EPI >90 >=90 mL/min/1.7 3 m2 02/11/2023 5:03 PM [facility] Blood BLOOD SPECIMEN / Unknown Lab Venipuncture / Unknown 02/11/2023 3:40 PM COTTON PICKER 02/11/2023 4:33 PM [facility] Kevin Hirsch MD LAB - CHEMISTRY LIBAN AREVALO [facility] Organization Address City/State/ZIP Co de Phone Number [facility] [address] [place] [address], [facility] [phone] from Last 3 Months or Most Recently Relevant to Health Maintenance Care Teams Group Exercise Instructor Relationship Specialty Start [place] [address] [place], [place] [phone] PCP - General Internal Medicine 02/08/23 Macario Ignacio MD [facility] [address] [place] [phone] Referring Physician Dermatology 02/08/23
--- OUTSIDE RECORDS SUMMARY | 2024-04-16 08:47 | XMS_ITS | Patient Health Summary ---
Author Organization [facility] Address [address] [place] [place] [address] Care Team Providers Care Director Skills Name Role Phone Nicky Jimenez MD Primary Care Provider [phone] Macario Ignacio MD Unavailable [phone] Note from [facility],non-owned Affiliates and Associated Physician Practices is amultiple site organization consisting of ambulatory clinics and hospital sitesin [place], [place], [place] and [place]. This disclosure is being madepursuant to the Care Everywhere program and may not contain all information available regarding this patient. Last updated 17.[facility] Allergies * Hmg-Coa-R Inhibitors(Dizziness,Psychiatric) -Medium Criticality Medications * Be aware that medications may not be up to date on this document. Alwaysverify current medications with the patient. 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 Social History Tobacco Use Types Packs/Day Years Used Date Smoking Tobacco: Never Smokeless Tobacco: Never Tobacco Cessation:Counseling Given: No Alcohol Use Standard Drinks/Week Comments Yes 0 (1 standard drink = 0.6 oz pur e alcohol) Sex and Gender Information Value Date Recorded Sex Assigned at Male 02/11/2023 2:10 PM [employer] Gender Identity Male 02/11/2023 2:10 PM [employer] Sexual Orientation Straight 02/11/2023 2: 10 PM [employer] Last Filed Vital Signs Vital Sign Reading [...] Mass Index 32.13 09/11/2023 9:31 AM CDT Procedures * CARDIAC EKG ORDER(Performed 02/22/2023) * PATHOLOGY TISSUE(Performed 02/21/2023) Performed for 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), Melanoma of scalp (HCC) * NJ FULL THICK GRFT SCALP,ARM,LEG <20SQC(Performed 02/21/2023) Performed for 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), Melanoma of scalp (HCC) * NJ EXC EXCSV SKN&SUBQ TISS W/LIPC SUBMENTAL FA(Performed 02/21/2023) Performed for 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), Melanoma of scalp (HCC) * NJ SENTINEL LYMPH NODE BX PROC PERFORM(Performed 02/21/2023) Performed for 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), Melanoma of scalp (HCC) * NJ EXC SKIN MALIG >4CM TRUNK,ARM,LEG(Performed 02/21/2023) Performed for 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), Melanoma of scalp (HCC) * ENDOTRACHEAL TUBE NOTE(Performed 02/21/2023) * NM LYMPHOSCINTIGRAPHY(Performed 02/21/2023) Performed for Melanoma of right upper arm (HCC) * COMPREHENSIVE METABOLIC PANEL(Performed 02/11/2023) Performed for Melanoma of right upper arm (HCC), Melanoma of scalp (HCC) * CBC W AUTO DIFFERENTIAL(Performed 02/11/2023) Performed for Melanoma of right upper arm (HCC), Melanoma of scalp (HCC) * XR CHEST 2VW(Performed 02/11/2023) Performed for Melanoma of right upper arm (HCC), Melanoma of scalp (HCC) * EKG 12-LEAD(Performed 02/11/2023) Performed for Melanoma of right upper arm (HCC), Melanoma of scalp (HCC) * DERMATOPATHOLOGY(Performed 01/31/2023) Performed for Neoplasm of uncertain behavior of skin Results * CARDIAC EKG ORDER (02/22/2023 2:10 PM [employer]) Narrative 02/22/2023 2:10 PM [employer] Ordered by an unspecified provider. Scanned Document CARDIAC SERVICES ORD ERABLES * PATHOLOGY TISSUE (02/21/2023 12:02 PM [employer]) Case Report Surgical Pathology Report Case: [id number] Authorizing Provider: Kevin Hirsch MD Collected: 02/21/2023 12:02 PM Ordering Location: [facility] Received: 02/21/2023 03:27 PM Pathologist: Carmelina Celaya MD Specimens: A) - [place] Lymph Node, Right Axilla sentinel node #1 stitch at hot spot B) - [place] Lymph Node, [place] Lymph node stitch #2 at hot spot C) - Skin, Right arm melanoma stitch at 12 o clock D) - Margin, right arm melanoma inferior margin E) - Margin, right arm melanoma superior margin F) - Skin, scalp melanoma stitch 12 oclock G) - Margin, Deep Margin 03/07/2023 9:01 PM [employer] [facility] Final Diagnosis Skin, right arm, melanoma, stitch at 12:00, oriented re-excision (C): - Negative for residual malignant melanoma and sgrpxkun-xh-kqql - Biopsy site changes Skin, right arm, melanoma, inferior margin, excision (D): - Negative for malignant melanoma and oejroizg-ge-mbjs Skin, right arm, melanoma, superior margin, excision (E): - Negative for malignant melanoma and fffeihyz-fl-bath Lymph node, right axilla, sentinel node #1, stitch at hot spot, biopsy (A): - No histopathologic abnormality (negative for melanoma), 2 nodes Lymph node, right axilla, sentinel node #2, stitch at hot spot, biopsy (B): - No histopathologic abnormality (negative for melanoma), 1 node Skin, scalp, melanoma, stitch at 12:00, oriented re-excision (F): - Negative for residual malignant melanoma and jpdlloqv-ph-jatm - Biopsy site changes - Full-thickness actinic keratosis, not at margin Soft tissue, scalp, deep margin, excision (G): - No histopathologic abnormality (negative for melanoma) 03/07/2023 9:01 PM [facility] Microscopic Description and Comment Microscopic examination substantiates the final diagnosis. See the synoptic report for additional details. All sentinel lymph nodes (blocks A1, A2, A3, B1, B2, and B3) are negative for melanoma on the H and E levels and on the MART1 and HMB45 immunostains. Controls stained appropriately. 03/07/2023 9:01 PM [facility] Clinical History The patient is a 67-year-old man. Skin shave biopsies ([id number], 01/31/2023) showed right proximal posterior arm (A) nodular melanoma, non-ulcerated, Breslow thickness at least 1.0 mm, Josefina level at least IV, invasive melanoma present at deep margin, pT1b; posterior scalp (B) lentigo maligna melanoma, non-ulcerated, Breslow measurement at least 0.4 mm, Josefina level at least III, invasive melanoma present at deep margin, ffeptfhh-fy-jkuy present at radial margins, pT1a. Operative procedure/findings: Intraoperative mapping, sentinel lymph node dissection, wide excision of right arm melanoma and wide excision of posterior scalp melanoma performed 03/07/2023 9:01 PM [facility] Gross Description The requisition and specimen(s) are identified with the patient's name, Osiel Garcia. Received in formalin, specimen A , is a 2.5 x 2.0 x 1.0 cm portion of fibroadipose and soft tissue with a stitch designating the hotspot. There are 2 lymph nodes, 0.5 x 0.5 x 0.5 and 1.2 x 1.2 x 1.0 cm with avalos-pink smooth cut surface. The nodes are entirely submitted as follows: A1-smaller node, bisected, Y9-L8-jeltgr lymph node, serially sectioned Received in formalin, specimen B is a 3.0 x 2.5 x 1.0 cm portion of fibroadipose and soft tissue, with a stitch designating the hotspot. There is a single disrupted node, 1.8 x 1.0 x 1.0 cm cm with avalos-pink smooth cut surface and focal blue dye injection. The node is entirely submitted in cassette B1-B3. Received in formalin, specimen C is a 3.3 x 3.0 cm oriented avalos-pink skin excised to a depth of 2.0 cm. A stitch designates the 12o'clock . The 12-6 o'clock is inked blue, the 6-12 o'clock is inked green, and the deep is inked black. The skin surface is avalos-pink and partially obscured by blue dye injection sites, covering the majority of the surface. Sectioning shows focal hemorrhage at the 9o'clock margin, but is otherwise unremarkable. Blue dye injection obscures the epidermal layer and a majority of the underlying soft tissue. There are no gross lesions. The specimen is entirely submitted as follows: C1-C2-12o'clock margin, perpendicular, L3-N9-lbfmqrrtxe sections from 12-6 o'clock, C9-C10-6o'clock margin, perpendicular Received in formalin, specimen D is a 2.5 x 1.8 cm and oriented triangular avalos-pink skin excised to a depth of 1.5 cm. The skin and underlying soft tissue are avalos-pink to yellow and lobulated and unremarkable with focal blue dye injection. A central access representative perpendicular section is submitted in cassette D1. Received in formalin, specimen E is a 3.0 x 2.5 cm unoriented triangular avalos-pink skin excised to a depth of 2.0 cm. The skin and underlying soft tissue are avalos-pink to yellow and lobulated and unremarkable with focal blue dye injection. A central access representative perpendicular section is submitted in cassette E1. Received in formalin, specimen F is a 3.5 x 3.0 cm oriented avalos-pink skin excised to a depth of 0.7 cm. A stitch designates the 12o'clock. The 12-6 o'clock is inked blue, the 6-12 o'clock is inked green, and the deep is inked black. Centrally located is a 1.0 x 0.5 cm pink well-healed scar centrally, 1.0 cm to the nearest 3o'clock margin. Sectioning shows focal hemorrhage underlying the scar, but is without gross lesion. The specimen is entirely submitted as follows: F1-12o'clock margin, perpendicular, U2-L2-drwgkdlarg sections from 12-6 o'clock, F10-6o'clock margin, perpendicular Received in formalin, specimen G is a 2.0 x 1.2 x 0.3 cm flattened unoriented portion of fibroadipose and soft tissue. 1 aspect is inked blue and the opposing aspect is inked black. Serial sectioning shows avalos-pink to yellow lobulated cut surface. The specimen is entirely submitted in cassette G1-G2. IKRolando 03/07/2023 9:01 PM [facility] Pathologist Location at [facility] 03/07/2023 9:01 PM [facility] Disclaimer The performance characteristics of all immunohistochemical and indirect immunofluorescence stains (if any) cited in this report were determined by the [facility] of [facility]. Some of these tests were developed by our own laboratory and have not been cleared or approved by the US Food and Drug Administration. The FDA does not require this test to go through premarket FDA review. These tests are used for clinical purposes. They should not be regarded as investigational or for research. This laboratory is certified under the Clinical Laboratory Improvement Amendments (CLIA) as qualified to perform high complexity clinical laboratory testing. This case has been personally reviewed and interpreted by the attending (teaching) pathologist. 03/07/2023 9:01 PM [facility] Synoptic Report MELANOMA OF THE SKIN: Excision, Re-Excision MELANOMA OF THE SKIN: EXCISION, RE-EXCISION - A, B, C, D, E 8th Edition - Protocol posted: 01/04/2021 SPECIMEN Procedure: Re-excision Procedure: [place] node(s) biopsy Specimen Laterality: Right TUMOR Tumor Site: Skin of upper limb and shoulder: right arm Multiple Primary Sites: Present: right arm (this checklist); scalp Histologic Type: No residual melanoma identified Maximum Tumor (Breslow) Thickness (Millimeters): Cannot be determined: no residual melanoma in this case Macroscopic Satellite Nodule(s): Not identified Ulceration: Cannot be determined Anatomic (Josefina) Level: Cannot be determined: no residual melanoma in this case Mitotic Rate: Cannot be determined Microsatellite(s): Not identified Lymphovascular Invasion: Not identified Neurotropism: Not identified Tumor-Infiltrating Lymphocytes: Cannot be determined Tumor Regression: Cannot be determined: no residual melanoma in this case MARGINS: Margin Status for Invasive Melanoma: All margins negative for invasive melanoma Closest Margin Location(s) to Invasive Melanoma: no residual melanoma in this case Distance from Invasive Melanoma to Peripheral Margin: Cannot be determined: no residual melanoma in this case Distance from Invasive Melanoma to Deep Margin: Cannot be determined: no residual melanoma in this case REGIONAL LYMPH NODES: Regional Lymph Node Status: : All regional lymph nodes negative for tumor Total Number of Lymph Nodes Examined: 3 Number of [place] Nodes Examined: 3 PATHOLOGIC STAGE CLASSIFICATION (pTNM, AJCC 8th Edition): : Classification assigned in this report includes information from a prior procedure: [id number] A: nodular melanoma, Breslow at least 1.0 mm, Josefina at least IV, present at deep margin, non-ulcerated TNM Descriptors: m (multiple) pT Category: pT1b pN Category: pN0 MELANOMA OF THE SKIN: Excision, Re-Excision MELANOMA OF THE SKIN: EXCISION, RE-EXCISION - F, G 8th Edition - Protocol posted: 01/04/2021 SPECIMEN Procedure: Re-excision Specimen Laterality: Midline TUMOR Tumor Site: Skin of scalp and neck: posterior scalp Multiple Primary Sites: Present: scalp (this checklist); right arm Histologic Type: No residual melanoma identified Maximum Tumor (Breslow) Thickness (Millimeters): Cannot be determined: no residual melanoma in this case Macroscopic Satellite Nodule(s): Not identified Ulceration: Cannot be determined Anatomic (Josefina) Level: Cannot be determined: no residual melanoma in this case Mitotic Rate: Cannot be determined Microsatellite(s): Not identified Lymphovascular Invasion: Not identified Neurotropism: Not identified Tumor-Infiltrating Lymphocytes: Cannot be determined Tumor Regression: Cannot be determined: no residual melanoma in this case MARGINS: Margin Status for Invasive Melanoma: All margins negative for invasive melanoma Closest Margin Location(s) to Invasive Melanoma: no residual melanoma in this case Distance from Invasive Melanoma to Peripheral Margin: Cannot be determined: no residual melanoma in this case Distance from Invasive Melanoma to Deep Margin: Cannot be determined: no residual melanoma in this case REGIONAL LYMPH NODES: Regional Lymph Node Status: Not applicable (no regional lymph nodes submitted or found) PATHOLOGIC STAGE CLASSIFICATION (pTNM, AJCC 8th Edition): : Classification assigned in this report includes information from a prior procedure: [id number] B: lentigo maligna melanoma, Breslow at least 0.4 mm, Josefina at least IV, invasive melanoma present at deep margin, non-ulcerate TNM Descriptors: m (multiple) pT Category: pT1a pN Category: pN not assigned (no nodes submitted or found) 03/07/2023 9:01 PM [employer] [facility] Embedded Images 03/07/2023 9:01 PM [employer] [facility] Lymph Node Dissection SPECIMEN FROM SENTINEL LYMPH NODE / Unknown 02/21/2023 12:02 PM [employer] 02/21/2023 3:27 PM [employer] Comment:Pre-op diagnosis: MELANOMA OF RIGHT UPPER ARM; MELANOMA OF SCALP Lymph Node Dissection SPECIMEN FROM SENTINEL LYMPH NODE / Unknown 02/21/2023 12:10 PM [employer] 02/21/2023 3:27 PM [employer] Comment:Pre-op diagnosis: MELANOMA OF RIGHT UPPER ARM; MELANOMA OF SCALP Biopsy, Excision TISSUE SPECIMEN FROM SKIN / Unknown 02/21/2023 12:23 PM [employer] 02/21/2023 3:27 PM [employer] Comment:Pre-op diagnosis: MELANOMA OF RIGHT UPPER ARM; MELANOMA OF SCALP Biopsy, Excision (Margin) 02/21/2023 12:32 PM [employer] 02/21/2023 3:27 PM [employer] Comment:Pre-op diagnosis: MELANOMA OF RIGHT UPPER ARM; MELANOMA OF SCALP Biopsy, Excision (Margin) 02/21/2023 12:33 PM [employer] 02/21/2023 3:27 PM [employer] Comment:Pre-op diagnosis: MELANOMA OF RIGHT UPPER ARM; MELANOMA OF SCALP Biopsy, Excision TISSUE SPECIMEN FROM SKIN / Unknown 02/21/2023 1:13 PM [employer] 02/21/2023 3:27 PM [employer] Comment:Pre-op diagnosis: MELANOMA OF RIGHT UPPER ARM; MELANOMA OF SCALP Biopsy, Excision (Margin) 02/21/2023 1:17 PM [employer] 02/21/2023 3:27 PM [employer] Comment:Pre-op diagnosis: MELANOMA OF RIGHT UPPER ARM; MELANOMA OF SCALP Kevin Hirsch MD LAB - PATHOLOGY/CYTO LOGY ORDERABLES [facility] [address] [phone] * ETT LINE PERFORMABLE (02/21/2023 11:34 AM [employer]) Narrative Saman Burkett DO - 02/21/2023 11:34 AM [employer] Saman Burkett DO 02/21/2023 11:35 AM Endotracheal Tube Placement: Patient Location: OR. Intubation Event Date/Time: 02/21/2023 11:26 AM Procedure: intubation ([id number]). Procedure Section: Sedation: under general anesthesia. Indications for Airway Management: anesthesia Procedure pretreatments used? No Induction: standard IV Patient Position: sniffing Mask Ventilation: easy. Blade Type: Herb Blade Size: 4 Laryngoscopy View: grade 2 (partial cords) Intubation Adjuncts: stylet Tube: endotracheal tube Placement: oral Tube type: cuff - inflated Tube Size (MM): 8 Depth of Insertion (CM): 23 Measured From: lips Cuff Inflated With: air Number of Attempts: 1. Placement Verified By: direct visualization, bilateral breath sounds, chest auscultation and CO2 monitor Tube secured with: adhesive tape. Dentition unchanged? Yes Difficult Airway? No. Procedure Start Time: 02/21/2023 11:26 AM. Staff Section Anesthesia Provider: Saman Burkett DO, Performed the procedure Provider #1: Ricardo Gutierrez MD. Ricardo Gutierrez MD GENERAL ANESTHESI A ORDERABLES * NM LYMPHOSCINTIGRAPHY (02/21/2023 9:37 AM [employer]) Anatomical Region Laterality Modality Nuclear Medicine 02/21/2023 9:40 AM [employer] Impressions 02/21/2023 11:58 AM [employer] Impression: [place] lymph node identification and marking in the right axilla. > Dictated by Christianne Barrett MD (Fermenting Cellars Supervisor) 02/21/2023 9:40 AM IDoyle DO have personally reviewed and interpreted this examination/study. > Interpreting Provider: Doyle Daniel DO on 02/21/2023 11:58 AM Narrative 02/21/2023 11:58 AM [employer] PROCEDURE: NM LYMPHOSCINTIGRAPHY DATE/TIME OF EXAM: 02/21/2023 9:38 AM CLINICAL INFORMATION: None relevant/not provided if blank. Indication: C43.61: Melanoma of right upper arm (CMS-HCC) History:A 67-year-old male presenting with a biopsy proven melanoma in the skin of the right upper arm. Technique: 1.027 mCi of Tc-99m tilmanocept (Lymphoseek) injected intradermally around the lesion. Patient's BMI 32.7 kg/m2 Findings: A total dose of 1.027 mCi Tc 99-m tilmanocept (Lymphoseek) was given by 4 separate intradermal injections around the original lesion by Dr. Hirsch. Planar dynamic images of initially shows a faint trail of activity leading towards . Subsequently, a sentinel node is localized in the region of the right axilla. The sentinel lymph node was marked on the skin based on anterior projection. Dr. Doyle Daniel was present for the allen time of the study. Procedure Note Doyle Daniel DO - 02/21/2023 PROCEDURE: NM LYMPHOSCINTIGRAPHY DATE/TIME OF EXAM: 02/21/2023 9:38 AM CLINICAL INFORMATION: None relevant/not provided if blank. Indication: C43.61: Melanoma of right upper arm (CMS-HCC) History:A 67-year-old male presenting with a biopsy proven melanoma inthe skin of the right upper arm. Technique: 1.027 mCi of Tc-99m tilmanocept (Lymphoseek) injected intradermally around the lesion. Patient's BMI 32.7 kg/m2 Findings: A total dose of 1.027 mCi Tc 99-m tilmanocept (Lymphoseek) was given by4 separate intradermal injections around the original lesion by Dr. Hirsch. Planar dynamic images of initially shows a faint trail of activityleading towards . Subsequently, a sentinel node is localized in the region ofthe right axilla. The sentinel lymph node was marked on the skin based on anterior projection. Dr. Doyle Daniel was present for the allen time ofthe study. Impression: [place] lymph node identification and marking in the right axilla. > Dictated by Christianne Barertt MD (Fermenting Cellars Supervisor) 02/21/2023 9:40AM Doyle Guardado DO have personally reviewed and interpreted this examination/study. > Interpreting Provider: Doyle Daniel DO on 02/21/2023 11:58 AM Kevin Hirsch MD NM ORDERABLES * CBC WITH DIFFERENTIAL (02/11/2023 3:40 PM [facility]) WBC 7.7 4.0 - 10.7 x10E9/L 02/11/2023 4:41 PM [facility] RBC Count 4.61 4.30 - 5.80 x10E12/L 02/11/2023 4:41 PM [facility] Hemoglobin 14.2 13.3 - 17.5 g/dL 02/11/2023 4:41 PM [facility] Hematocrit 41.4 38.7 - 51.1 % 02/11/2023 4:41 PM [facility] MCV 89.8 80.0 - 98.0 fL 02/11/2023 4:41 PM [facility] MCH 30.8 26.7 - 33.6 pg 02/11/2023 4:41 PM [facility] MCHC 34.3 31.7 - 36.3 g/dL 02/11/2023 4:41 PM [facility] RDW-CV 12.7 11.3 - 14.8 % 02/11/2023 4:41 PM [facility] Platelet Count 240 150 - 420 x10E9/L 02/11/2023 4:41 PM [facility] MPV 11.2 7.8 - 11.4 fL 02/11/2023 4:41 PM [facility] Neutrophil % 54.2 41.0 - 74.0 % 02/11/2023 4:41 PM [facility] Lymphocyte % 34.9 17.0 - 47.0 % 02/11/2023 4:41 PM [facility] Monocyte % 6.3 3.0 - 11.0 % 02/11/2023 4:41 PM [facility] Eosinophil % 3.7 0.0 - 7.0 % 02/11/2023 4:41 PM [facility] Basophil % 0.5 0.0 - 1.6 % 02/11/2023 4:41 PM [facility] Immature Granulocytes % 0.4 0.0 - 1.0 % 02/11/2023 4:41 PM [facility] Neutrophil Absolute 4.15 1.60 - 7.50 x10E9/L 02/11/2023 4:41 PM [facility] Lymphocyte Absolute 2.67 1.00 - 4.40 x10E9/L 02/11/2023 4:41 PM [facility] Monocyte Absolute 0.48 0.15 - 1.00 x10E9/L 02/11/2023 4:41 PM [facility] Eosinophil Absolute 0.28 0.00 - 0.60 x10E9/L 02/11/2023 4:41 PM [facility] Basophil Absolute 0.04 0.00 - 0.13 x10E9/L 02/11/2023 4:41 PM [facility] Blood BLOOD SPECIMEN / Unknown Lab Venipuncture / Unknown 02/11/2023 3:40 PM [employer] 02/11/2023 4:33 PM [employer] Kevin Hirsch MD LAB - HEMATOLOGY ORD ERABLES Performing Organization Address [facility] Co de Phone Number [address] [phone] [phone] * COMPREHENSIVE METABOLIC PANEL (02/11/2023 3:40 PM [employer]) BUN 11 7 - 26 mg/dL 02/11/2023 5:03 PM [facility] Creatinine 0.83 0.71 - 1.16 mg/dL 02/11/2023 5:03 PM [facility] Sodium 139 136 - 145 mmol/L 02/11/2023 5:03 PM [facility] Potassium 4.2 3.5 - 4.5 mmol/L 02/11/2023 5:03 PM [facility] Chloride 107 98 - 107 mmol/L 02/11/2023 5:03 PM [facility] CO2 25 22 - 29 mmol/L 02/11/2023 5:03 PM [facility] Glucose 87 70 - 115 mg/dL 02/11/2023 5:03 PM [facility] Calcium 9.3 8.4 - 10.2 mg/dL 02/11/2023 5:03 PM [facility] Protein Total 7.2 6.0 - 8.3 g/dL 02/11/2023 5:03 PM [facility] Albumin 4.0 3.4 - 5.0 g/dL 02/11/2023 5:03 PM [facility] Bilirubin Total 0.6 0.2 - 1.2 mg/dL 02/11/2023 5:03 PM [facility] Alkaline Phosphatase 62 40 - 150 U/L 02/11/2023 5:03 PM [facility] ALT 27 5 - 55 U/L 02/11/2023 5:03 PM [facility] AST 20 5 - 34 U/L 02/11/2023 5:03 PM [facility] Anion Gap 7 6 - 16 02/11/2023 5:03 PM [facility] BUN/Creatinine Ratio 13 7 - 23 02/11/2023 5:03 PM [facility] Osmolality Calculated 287 275 - 295 mOsm/kg 02/11/2023 5:03 PM [facility] Albumin/Globulin Ratio 1.3 1.1 - 2.3 02/11/2023 5:03 PM [facility] eGFR by CKD-EPI >90 >=90 mL/min/1.7 3 m2 02/11/2023 5:03 PM [facility] Blood BLOOD SPECIMEN / Unknown Lab Venipuncture / Unknown 02/11/2023 3:40 PM [employer] 02/11/2023 4:33 PM [employer] Kevin Hirsch MD LAB - CHEMISTRY LIBAN AREVALO [facility] Organization Address [facility] Co de Phone Number [facility] [address] [place] [phone], [facility] [facility] [phone] * XR CHEST 2VW (02/11/2023 3:33 PM LOW EMISSION AUTOMOBILE DESIGNER) Anatomical Region Laterality Modality Chest Radiographic Aide ging 02/11/2023 3:37 PM LOW EMISSION AUTOMOBILE DESIGNER Impressions 02/11/2023 4:44 PM LOW EMISSION AUTOMOBILE DESIGNER IMPRESSION: No suspicious pulmonary nodules. Report dictated by Misael Cline MD (transporter radiology). I, Csaa Arias DO have personally reviewed and interpreted this examination/study. > Interpreting Provider: Casa Arias DO on 02/11/2023 4:44 PM Narrative 02/11/2023 4:44 PM LOW EMISSION AUTOMOBILE DESIGNER EXAMINATION: XR CHEST 2VW DATE/TIME OF EXAM: 02/11/2023 3:33 PM, LOCATION [facility] HISTORY: C43.61: Melanoma of right upper arm (CMS-HCC) C43.4: Melanoma of scalp (CMS-HCC) COMPARISON: No prior study is available for comparison. FINDINGS: No confluent consolidation is noted. No suspicious pulmonary nodules. No pleural effusion or pneumothorax. The cardiac silhouette is normal. The aorta is tortuous. No acute osseous abnormalities. Degenerative changes are noted in the visualized spine. Procedure Note Casa Arias DO - 02/11/2023 EXAMINATION: XR CHEST 2VW DATE/TIME OF EXAM: 02/11/2023 3:33 PM, LOCATION [facility] HISTORY: C43.61: Melanoma of right upper arm (CMS-HCC) C43.4: Melanoma of scalp (CMS-HCC) COMPARISON: No prior study is available for comparison. FINDINGS: No confluent consolidation is noted. No suspicious pulmonary nodules. No pleural effusion or pneumothorax. The cardiac silhouette is normal. The aorta is tortuous. No acute osseous abnormalities. Degenerative changesare noted in the visualized spine. IMPRESSION: No suspicious pulmonary nodules. Report dictated by Misael Cline MD (transporter radiology). ICasa DO have personally reviewed and interpreted this examination/study. > Interpreting Provider: Casa Arias DO on 02/11/2023 4:44 PM Kevin Hirsch MD DIAGNOSTIC IMAGING O RDERABLES * EKG 12-LEAD (02/11/2023 2:20 PM LOW EMISSION AUTOMOBILE DESIGNER) Ventricular Rate 69 BPM [facility] Atrial Rate 69 BPM [facility] P-R Interval 162 ms [facility] QRS Duration ms 96 ms [facility] Q-T Interval ms 414 ms [facility] QTC Calculation (Bezet) 443 ms [facility] Calculated P [place] 51 degrees [facility] Calculated R [place] 23 degrees [facility] Calculated T [place] 42 degrees [facility] Interpretation EKG NORMAL SINUS RHYTHM NORMAL ECG NO PREVIOUS ECGS AVAILABLE Confirmed by MISAEL STALLINGS, AMY ([id number]) on 02/14/2023 9:26:04 PM [facility] MUSE 02/11/2023 2:20 PM LOW EMISSION AUTOMOBILE DESIGNER 02/14/2023 9:26 PM LOW EMISSION AUTOMOBILE DESIGNER Kevin Hirsch MD ECG ORDERABLES [facility] MUSE * DERMATOPATHOLOGY (01/31/2023 3:33 AM LOW EMISSION AUTOMOBILE DESIGNER) Case Report Dermatopathology Report Case: [id number] Authorizing Provider: Macario Ignacio MD Collected: 01/31/2023 03:33 AM Ordering Location: [facility] DermPath Lab Received: 02/04/2023 12:57 PM Pathologist: Masha Cervantes MD Specimens: A) - Skin, rght lproximal posterior arm B) - Skin, posterior scalp 5:10 PM LOW EMISSION AUTOMOBILE DESIGNER DERMATOPATHOLOGY LABORATORY Final Diagnosis Specimen A. SKIN, right lproximal posterior arm: MALIGNANT MELANOMA, NODULAR TYPE BRESLOW THICKNESS 1.0 MM, JOSEFINA LEVEL IV PRESENT AT MARGIN (C43.61) (see microscopic description and synoptic report) Specimen B. SKIN, posterior scalp: MALIGNANT MELANOMA, LENTIGINOUS TYPE BRESLOW THICKNESS 0.4 MM, JOSEFINA LEVEL III PRESENT AT MARGIN (C43.4) (see microscopic description and synoptic report) 5:10 PM LOW EMISSION AUTOMOBILE DESIGNER DERMATOPATHOLOGY LABORATORY Clinical History A: Neoplasm of Uncertain Behavior vs. Basal Cell Carcinoma vs. Melanoma B: Neoplasm of Uncertain Behavior vs. Melanoma 3 5:10 PM LOW EMISSION AUTOMOBILE DESIGNER DERMATOPATHOLOGY LABORATORY Gross Description Specimen A: Received [...] 11x7x1 mm. Jar 0. 3 5:10 PM LOW EMISSION AUTOMOBILE DESIGNER DERMATOPATHOLOGY LABORATORY Microscopic Description Specimen A. SKIN, [...] margin of the specimen. 3 5:10 PM [facility] DERMATOPATHOLOGY LABORATORY Disclaimer An external and internal positive and negative controls are appropriate for the histochemical, immunohistochemical and immunofluorescence stain(s) in this case (if any), except where stated explicitly. The performance characteristics of the stain(s) cited in this report were developed and its performance characteristic determined by the Dermatopathology Laboratory at [facility], directed by Dr. Justa Vasquez. These tests need not be, and therefore are not, approved by the [place] Food and Drug Administration. The tests are used for clinical purposes. Billing Codes Specimen Charges Stain Charges 44563 [id number] 1 1 [id number] 63379 1 1 3 5:10 PM [facility] DERMATOPATHOLOGY LABORATORY Embedded Images 3 5:10 PM [facility] DERMATOPATHOLOGY LABORATORY Synoptic Report MELANOMA OF [...] the current one Ulceration: Not identified Anatomic (Josefina) Level: At least level: IV : tumor [...] the current one Ulceration: Not identified Anatomic (Josefina) Level: At least level: III : tumor [...] reviewed by Dr Gracie Cervantes who agrees. 5:10 PM LOW EMISSION AUTOMOBILE DESIGNER DERMATOPATHOLOGY LABORATORY Pathology/Cytology TISSUE SPECIMEN FROM SKIN / Unknown 01/31/2023 3:33 AM LOW EMISSION AUTOMOBILE DESIGNER 02/04/2023 12:57 PM LOW EMISSION AUTOMOBILE DESIGNER Miscellaneous samples (specimen) TISSUE SPECIMEN FROM SKIN / Unknown 01/31/2023 3:33 AM LOW EMISSION AUTOMOBILE DESIGNER 02/04/2023 12:57 PM LOW EMISSION AUTOMOBILE DESIGNER Macario Ignacio MD LAB - PATHOLOGY/CYTO LOGY ORDERABLES DERMATOPATHOLOGY LABORATORY [facility] - Department of Dermatology [facility] Specialized Medicine [address] [facility], [address]rd Floor [address] [phone] Care Teams Director Skills Relationship Specialty [place] [address] [place] [address] PCP - General Internal Medicine 02/08/23 Macario Ignacio MD [facility] DERMATOLOGY [address] [place] [address] [phone] Referring Physician Dermatology 02/08/23
--- OUTSIDE RECORDS SUMMARY | 2024-04-16 08:47 | XMS_ITS | Encounter Summary ---
Author Organization [facility] Address Counts include 234 beds at the [facility] [place] [address] Care Team Providers Care Loan Processor Name Role Phone Nicky Jimenez MD Primary Care Provider None, Provider Primary Care Provider Unavaila ble Encounter Details Date Type Department Care Team (Late st Contact Info) Description 10/23/2019 textPlus Message Enc [facility] Medical Group Family & Internal Medicine [facility] [address] [place] [address] Yvette Carlos, LINDA [address] [place] [address] RE: Referral Request Social History Tobacco Use Types Packs/Day Years [...] documented as of this encounter Care Teams Loan Processor Relationship Specialty Start Date End Date Nicky Jimenez MD PCP - General 08/03/16 01/21/23 None, Provider, PCP - General UNKNOWN PHYSICIAN SPECIALTY 01/22/23 documented as of this encounter
--- OUTSIDE RECORDS SUMMARY | 2024-04-16 08:47 | XMS_ITS | Encounter Summary ---
Author Organization [facility] Address [facility] [place] [address] Care Team Providers Care Warehouse Administrative Assistant Name Role Phone Nicky Jimenez MD Primary Care Provider None, Provider Primary Care Provider Unavaila ble Encounter Details Date Type Department Care Team (Late st Contact Info) Description 04/27/2019 Compliance Control Message Enc [facility] Family & Internal Medicine [facility] [address] [place] [address] Yvette Carlos, LINDA [address] [place] [address] RE: Referral Request Social History [...] documented as of this encounter Care Teams Warehouse Administrative Assistant Relationship Specialty Start Date End Date Nicky Jimenez MD PCP - General 08/03/16 01/21/23 None, Provider, PCP - General UNKNOWN PHYSICIAN SPECIALTY 01/22/23 documented as of this encounter
--- OUTSIDE RECORDS SUMMARY | 2024-04-16 08:47 | XMS_ITS | Encounter Summary ---
Author Organization [facility] Address [facility] [place] [address] Care Team Providers Care Hospice Care Consultant Name Role Phone Nicky Jimenez MD Primary Care Provider [phone] None, Provider Primary Care Provider Unavaila ble Encounter Details Date Type Department Care Team (Late st Contact Info) Description 11/03/2019 Take5t Message Enc [facility] Medical Group Family & Internal Medicine [facility] [address] [place] [address] [place] [address] [place] [address] RE: Question Social History Tobacco [...] on file documented as of this encounter Progress Notes * Hilary Wray MA - 11/03/2019 9:04 AM CDT Yvette did visit today. documented in this encounter Plan of Treatment Not on file documented as of this encounter Visit Diagnoses Not on filedocumented in this encounter Additional Health Concerns Infection Onset Date Last Indicated Resolved Time COVID-19 Rule Out 06/05/2020 06/05/2020 06/06/2020 12:45 PM CDT documented as of this encounter Care Teams Hospice Care Consultant Relationship Specialty Start Date End Date Nicky Jimenez MD PCP - General 08/03/16 01/21/23 None, Provider, PCP - General UNKNOWN PHYSICIAN SPECIALTY 01/22/23 documented as of this encounter
--- OUTSIDE RECORDS SUMMARY | 2024-04-16 08:47 | XMS_ITS | Encounter Summary ---
Author Organization [facility] Address [facility] [place] [address] Care Team Providers Care Setter Machine Name Role Phone Nicky Jimenez MD Primary Care Provider None, Provider Primary Care Provider Unavaila ble Encounter Details Date Type Department Care Team (Late st Contact Info) Description 06/02/2019 MobilePeak Message Enc [facility] Medical Group Family & Internal Medicine [facility] [address] [place] [address] Yvette Carlos, LINDA [address] [place] [address] RE: Follow Up/Update Social History [...] documented as of this encounter Care Teams Setter Machine Relationship Specialty Start Date End Date Nicky Jimenez MD PCP - General 08/03/16 01/21/23 None, Provider, PCP - General UNKNOWN PHYSICIAN SPECIALTY 01/22/23 documented as of this encounter
--- OUTSIDE RECORDS SUMMARY | 2024-04-16 08:47 | XMS_ITS | Encounter Summary ---
Author Organization [facility] Address [facility] [place] [address] Care Team Providers Care Pesticide Applicator Name Role Phone Nicky Jimenez MD Primary Care Provider None, Provider Primary Care Provider Unavaila ble Encounter Details Date Type Department Care Team (Late st Contact Info) Description 12/13/2019 Improveit! 360 Message Enc [facility] Medical Group Family & Internal Medicine [facility] [address] [place] [address] Yvette Carlos, LINDA [address] [place] [address] RE: Question Social History Tobacco [...] documented as of this encounter Care Teams Pesticide Applicator Relationship Specialty Start Date End Date Nicky Jimenez MD PCP - General 08/03/16 01/21/23 None, Provider, PCP - General UNKNOWN PHYSICIAN SPECIALTY 01/22/23 documented as of this encounter
--- OUTSIDE RECORDS SUMMARY | 2024-04-16 08:48 | XMS_ITS | Encounter Summary ---
Author Organization [facility] Address [facility] [place] [address] Care Team Providers Care Certified Genetic Counselor Name Role Phone Nicky Jimenez MD Primary Care Provider None, Provider Primary Care Provider Unavaila ble Encounter Details Date Type Department Care Team (Late st Contact Info) Description 07/20/2019 LinguaLeo Message Enc [facility] Medical Group Family & Internal Medicine [facility] [address] [place] [address] Yvette Carlos, LINDA [address] [place] [address] Follow Up/Update Social History Tobacco [...] have Coronavirus / COVID-19? No / Unsure 07/20/2019 1:22 PM CDT documented as of this encounter Plan of Treatment Not on file documented as of this encounter Visit Diagnoses Not on filedocumented in this encounter Additional Health Concerns Infection Onset Date Last Indicated Resolved Time COVID-19 Rule Out 06/05/2020 06/05/2020 06/06/2020 12:45 PM CDT documented as of this encounter Care Teams Certified Genetic Counselor Relationship Specialty Start Date End Date Nicky Jimenez MD PCP - General 08/03/16 01/21/23 None, Provider, PCP - General UNKNOWN PHYSICIAN SPECIALTY 01/22/23 documented as of this encounter
--- OUTSIDE RECORDS SUMMARY | 2024-04-16 08:48 | XMS_ITS | Encounter Summary ---
Author Organization [facility] Address [facility] [place] [address] Care Team Providers Care Outside Machinist Name Role Phone Nicky Jimenez MD Primary Care Provider None, Provider Primary Care Provider Unavaila ble Encounter Details Date Type Department Care Team (Late st Contact Info) Description 08/11/2019 Videoflot Message Enc [facility] Medical Group Family & Internal Medicine [facility] [address] [place] [address] Yvette Carlos, LINDA [address] [place] [address] RE: Referral Request Social History [...] have Coronavirus / COVID-19? No / Unsure 08/13/2019 10:24 AM CDT documented as of this encounter Progress Notes * Kyung Clark RN - 08/13/2019 1:29 PM CDT Spoke with pt and he has not heard back yet on GI referral . Please call pt * Kyung Clark RN - 08/12/2019 8:44 AM CDT . documented in this encounter Plan of Treatment Not on file documented as of this encounter Visit Diagnoses Not on filedocumented in this encounter Additional Health Concerns Infection Onset Date Last Indicated Resolved Time COVID-19 Rule Out 06/05/2020 06/05/2020 06/06/2020 12:45 PM CDT documented as of this encounter Care Teams Outside Machinist Relationship Specialty Start Date End Date Nicky Jimenez MD PCP - General 08/03/16 01/21/23 None, Provider, PCP - General UNKNOWN PHYSICIAN SPECIALTY 01/22/23 documented as of this encounter
--- OUTSIDE RECORDS SUMMARY | 2024-04-16 08:48 | XMS_ITS | Encounter Summary ---
Author Organization [facility] Healthcare Address [address] [place] [address] Care Team Providers Care Diesel Engine Assembler Name Role Phone Khalif Ortega MD Unavailable [phone] Lam Torres MD Primary Care Provider [phone] Carly Corea Unavailable [phone] Nette Durham MD Unavailable [phone] Jesus Browne MD Unavailable [phone] Rory Gooden MD Unavailable [phone] Alec Sparks MD Unavailable [phone] Macario Ignacio MD Unavailable [phone] Reason for Visit * Reason Onset Date Comments Medical Records Request 04/13/2024 Encounter Details Date Type Department Care Team (Late st Contact Info) Description 04/13/2024 Telephone [facility] Medical Group Primary Care at [address] [address] Lam Torres MD [address] [place] [address] [address] [place] [address] Medical Records Request Social History Tobacco Use Types Packs/Day [...] on file Legal Sex Male 8:02 AM CHAR CONVEYOR TENDER CELLAR Gender Identity Male 12/16/2020 9:34 AM CDT Sexual Orientation Straight 10/26/2019 10 :23 AM CDT 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 CONVEYOR TENDER CELLAR * Telephone Encounter - Huma Barrera - 04/13/2024 11:33 AM CST Medical Records Request Request Type: Records Request Practice Will Complete What records are being requested:EKG need tracing Who will the records be sent to (if being sent to another doctor, list the doctor's name and specialty)? Surgery Department HUGO Zamorano, Date Needed: as soon as possible Delivery Method: Fax Fax number to use for return of records: [phone] Additional Comments/Concerns: Patient surgery scheduled Apr 23 2024 Does the message need to be routed? Yes-Action Needed CONVEYOR TENDER CELLAR documented in this encounter Plan of Treatment Not on file documented as of this encounter Visit Diagnoses Not on filedocumented in this encounter Care Teams Diesel Engine Assembler Relationship Specialty Start Date End Date Lam Torres MD [address] [place] [address] PCP - General Family Medicine 05/14/23 Khalif Ortega MD [address] [place] [address] Referring Physician Otolaryngology 04/15/18 Carly Corea PA [address] [place] [address] Physician Freight Booker 05/14/23 Nette Durham MD [address] [place] [address] Consulting Physician Cardiology 05/14/23 Jesus Browne MD [facility] [address] [facility] [phone] [place] [address] Surgeon Surgical Critical Care 05/14/23 Rory Gooden MD [address] [facility] [address] [place], [place] [address] Consulting Physician Urology 05/14/23 Alec Sparks MD [address] [place] [address] Referring Physician Orthopedic Surgery 03/16/24 Macario Ignacio MD [address] [place] [address] Dermatology 03/16/24 documented as of this encounter
--- OUTSIDE RECORDS SUMMARY | 2024-04-16 08:48 | XMS_ITS | Encounter Summary ---
Author Organization [facility] Address [facility] [place] [address] Care Team Providers Care Filing Clerk Name Role Phone Nicky Jimenez MD Primary Care Provider [phone] None, Provider Primary Care Provider Unavaila ble Encounter Details Date Type Department Care Team (Late st Contact Info) Description 07/21/2019 Embark Message Enc [facility] Medical Group Family & Internal Medicine [facility] [address] [place] [address] Yvette Carlos, LINDA [address] [place] [address] Follow Up/Update Social History Tobacco [...] documented as of this encounter Care Teams Filing Clerk Relationship Specialty Start Date End Date Nicky Jimenez MD PCP - General 08/03/16 01/21/23 None, Provider, PCP - General UNKNOWN PHYSICIAN SPECIALTY 01/22/23 documented as of this encounter
== END 2024-04-16 08:40 | disposition home or self-care (01) ==
PROVIDERS: PCP Family Medicine; Visit Provider Orthopaedic Surgery
DX: M75.101 Unspecified rotator cuff tear or rupture of right shoulder, not specified as traumatic (principal)
CPT/HCPCS: 87081

== ENCOUNTER 2024-04-23 02:41 | Day surgery (SDC) | payer MEDICARE, SELFPAY ==
--- NOTE | 2024-04-13 11:16 | PC.NURSE ---
Report to the Outpatient Waiting Room, entrance under the green pavilion located off [facility], at time ___9:30 AM____ on date __04/23/24 . Planned Procedure Time: 11:30 AM .? Time changes happen often and if your time is changed the preop area will call you the afternoon before. - You and your visitor will be asked to self-screen and do not enter if you have any COVID symptoms. Please call surgeon if you need to reschedule. - A mask is optional within the hospital at this time. Patients may have clear liquids (water, carbonated beverages, clear teas, apple juice) until 3 hours prior to surgery (8:30 AM) with a maximum of 20 ounces. - No food from midnight until time of surgery and no smoking, or chewing tobacco (or any form of nicotine). No chewing gum, candy or mints. - Take only the following medications with a SIP of water on the morning of surgery: __DILTIAZEM DO NOT STOP ANY OF YOUR OTHER PRESCRIPTION MEDICATIONS PRIOR TO SURGERY EXCEPT THE FOLLOWING Hold all vitamins and supplements for 3 days per anesthesiologist.LAST DOSE 04/19/24 Please no make-up, nail slovenian, hairspray, perfume, deodorant, or body powder the day of surgery.? No jewelry (including any body piercings) or valuables the day of surgery, leave them at home.? Please take a shower or bath the night before, or the morning of, surgery with an antibacterial soap.? Wear comfortable, loose fitting clothing.? Children are encouraged to wear pajamas. - Jewelry must be removed prior to entering the operating room.? Rings and piercings that are not removed may be cut off. - The hospital will not accept responsibility for valuables.? - Please leave all valuables, including medications, at home the day of surgery. If you are going home after surgery, a licensed semi driver must drive you home.? - NO public transportation without another adult if you receive anesthesia. - We recommend that an adult stay with you for 24 hours following discharge. - We also recommend that you do not drive, make important decision, drink alcoholic beverages, or take any drugs that were not prescribed by your health care provider for at least 24 hours after your discharge time. Follow any additional instructions given to you from your surgeon. Telephone instructions given to and asked if any additional questions and then verbalized understanding. Patient advised to call surgeon office or pre surgery nurse liaison [phone] if any additional questions.
[2024-04-13 11:30] VITALS: BMI 31.4
--- NOTE | 2024-04-22 12:27 | P.HP_ITS ---
H&P: HPI History of Present Illness Date/Time: 04/22/24 12:27 Chief Complaint: High-grade partial-thickness rotator cuff tear right shoulder Narrative: 69-year-old male who presents today for arthroscopy of his right shoulder with mini open rotator cuff repair possible biceps tenodesis. Patient originally injured his shoulder in mid August of last year when he was descending some steps at [employer] when he slipped and fell. He grabbed the rail to stop his fall and had a hyperextension injury to the shoulder. He was evaluated later that year I had MRI scan in early December of 2023 which showed chronic appearing interstitial tear of the upper subscap tendon, a perched long head of the biceps, and high-grade bursal sided partial-thickness tearing of the anterior supraspinatus tendon insertion. Patient has been trying to manage his shoulder nonsurgically since that time. Unfortunately he continues to have symptoms in the shoulder. He is at a point where it is bothering him on a daily basis and affecting his daily activities. He would like to proceed with surgery at this point rather than continue nonsurgical treatment. Review of Systems Review of Systems: All systems reviewed & are unremarkable except as noted in HPI and below PMFSH Past Medical History Medical History Skin cancer Ventral hernia Surgical History Surgical History History of cochlear implant Family History Family History (Updated 03/04/24 @ 14:40 by Maritza Jones CMA) Mother Cerebrovascular accident Other Diabetes mellitus Social History Social History (Updated 03/04/24 @ 14:39 by Maritza Jones CMA) Smoking status: Never smoker Second hand tobacco smoke exposure: Yes Alcohol intake: never Substance use: current Substance use type: marijuana Other substance usage details: CBD Last use: Pills for pain. 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 Gender identity (if verbalized by the patient): Male Spiritual care concerns: No Meds Home Medications and Allergies Home Medications ?Medication ?Instructions ?Recorded ?Confirmed ?Type diltiazem HCl 240 mg 240 mg PO DAILY 11/25/23 04/13/24 History capsule,extended release 24 hr, controlled CBD 5 mg PO PRN PAIN 01/08/24 04/13/24 History meloxicam 15 mg tablet 15 mg PO DAILY #30 tabs 01/08/24 04/13/24 Rx ascorbic acid (vitamin C) 1,000 mg 1 g PO DAILY 04/13/24 04/13/24 History tablet (C-1000) magnesium 500 mg tablet 15 mg PO DAILY 04/13/24 04/13/24 History psyllium husk 0.4 gram capsule 0.4 g PO DAILY 04/13/24 04/13/24 History (Metamucil) Allergies Allergy/AdvReac Type Severity Reaction Status Date / Time Ekfelov-NDW-HmF Reductase AdvReac Intermediate Rash Verified 04/13/24 11:12 Inhibitor Exam Narrative: 69-year-old male alert pleasant. He is 5 ft 9 238 lb BMI is 35.1. Right shoulder elevation to 170, external rotation is 60, internal rotation T1. He has pain at the extremes of all motion. He can barely do a subscap lift-off. He has mild weakness with abduction strength testing associated with moderate pain. External rotation strength is normal. Moderate tenderness in the bicipi lisette groove as well as the anterior supraspinatus tendon insertion. AC joint is nontender. Complains of no numbness tingling in the arm, 2+ radial pulse. Resp: Auscultation: clear to auscultation bilaterally Cardio: Rate: regular rate Rhythm: regular rhythm Assessment and Plan Assessment and plan (1) Right rotator cuff tear: Qualifiers: Rotator cuff tear extent: incomplete Rotator cuff tear trauma status: traumatic Encounter type: subsequent encounter Qualified Code(s): S46.011D - Strain of muscle(s) and tendon(s) of the rotator cuff of right shoulder, subsequent encounter Code(s): M75.101 - Unspecified rotator cuff tear or rupture of right shoulder, not specified as traumatic Status: Acute Plan 69-year-old male who has high-grade partial-thickness tear right rotator cuff tendon involving the upper portion of the subscapularis tendon as well as the supraspinatus tendon. Also appears that the biceps tendon may be perched on the bicipital groove. Patient has been having symptoms for approximately 10 months in the shoulder. He does not feel that his symptoms at this point her tolerable and he would rather proceed with surgery. Surgical procedures well as risks and complications were discussed in detail all questions were answered and we will proceed. Patient will stop his meloxicam and any other aspirin ibuprofen products 1 week prior to surgery. He will see his primary care doctor pre- surgical clearance. Patient did negative nasal swab.
[2024-04-23] VITALS (8 sets, daily range): BP systolic 102–160; BP diastolic 62–88; PULSE 51–69; RESP 14–20; TEMP 36.2–36.5; O2SAT 91–99
--- OUTSIDE RECORDS SUMMARY | 2024-04-23 02:44 | XMS_ITS | Encounter Summary ---
Author Organization [facility] Address [facility] [place] [address] Care Team Providers Care Preventive Medicine Specialist Name Role Phone Nicky Jimenez MD Primary Care Provider None, Provider Primary Care Provider Unavaila ble Encounter Details Date Type Department Care Team (Late st Contact Info) Description 01/20/2020 [employer] Message Enc [facility] Medical Group Family & Internal Medicine [facility] [address] [place] [address] Yvette Carlos, LINDA [address] [place] [address] RE: Question Social History Tobacco [...] documented as of this encounter Care Teams Preventive Medicine Specialist Relationship Specialty Start Date End Date Nicky Jimenez MD PCP - General 08/03/16 01/21/23 None, Provider, PCP - General UNKNOWN PHYSICIAN SPECIALTY 01/22/23 documented as of this encounter
--- OUTSIDE RECORDS SUMMARY | 2024-04-23 02:44 | XMS_ITS | Encounter Summary ---
Author Organization [facility] Address [facility] [place] [address] Care Team Providers Care Printing Press Operator Apprentice Name Role Phone Nicky Jimenez MD Primary Care Provider [phone] None, Provider Primary Care Provider Unavaila ble Encounter Details Date Type Department Care Team (Late st Contact Info) Description 10/23/2019 [employer] Message Enc [facility] Medical Group Family & Internal Medicine [facility] [address] [place] [address] Yvette Carlos, LINDA [address] [place] [address] RE: Referral Request Social History [...] documented as of this encounter Care Teams Printing Press Operator Apprentice Relationship Specialty Start Date End Date Nicky Jimenez MD PCP - General 08/03/16 01/21/23 None, Provider, PCP - General UNKNOWN PHYSICIAN SPECIALTY 01/22/23 documented as of this encounter
--- OUTSIDE RECORDS SUMMARY | 2024-04-23 02:44 | XMS_ITS | Encounter Summary ---
Author Organization [facility] Address [facility] [place] [address] Care Team Providers Care Licensed Vocational Nurse Name Role Phone Nicky Jimenez MD Primary Care Provider None, Provider Primary Care Provider Unavaila ble Encounter Details Date Type Department Care Team (Late st Contact Info) Description 08/11/2019 [employer] Message Enc [facility] Medical Group Family & Internal Medicine [facility] [address] [place] [address] Yvette Carlos, LINDA [address] [place] [address] RE: Referral Request Social History [...] documented as of this encounter Care Teams Licensed Vocational Nurse Relationship Specialty Start Date End Date Nicky Jimenez MD PCP - General 08/03/16 01/21/23 None, Provider, PCP - General UNKNOWN PHYSICIAN SPECIALTY 01/22/23 documented as of this encounter
--- OUTSIDE RECORDS SUMMARY | 2024-04-23 02:44 | XMS_ITS | Encounter Summary ---
Author Organization [facility] Address [facility] [place] [address] Care Team Providers Care Intelligence Officer Basic Name Role Phone Nicky Jimenez MD Primary Care Provider None, Provider Primary Care Provider Unavaila ble Encounter Details Date Type Department Care Team (Late st Contact Info) Description 12/28/2019 [employer] Message Enc [facility] Medical Group Family & Internal Medicine [facility] [address] [place] [address] Yvette Carlos, LINDA [address] [place] [address] RE: Question Social History Tobacco [...] documented as of this encounter Care Teams Intelligence Officer Basic Relationship Specialty Start Date End Date Nicky Jimenez MD PCP - General 08/03/16 01/21/23 None, Provider, PCP - General UNKNOWN PHYSICIAN SPECIALTY 01/22/23 documented as of this encounter
--- OUTSIDE RECORDS SUMMARY | 2024-04-23 02:44 | XMS_ITS | Patient Health Summary ---
Author Organization [facility] Address [address] [place] [address] Care Team Providers Care Service Counter Cashier Name Role Phone Nicky Jimenez MD Primary Care Provider [phone] Macario Ignacio MD Unavailable [phone] Note from Formerly named [facility],non-owned Affiliates and Associated Physician Practices is amultiple site organization consisting of ambulatory clinics and hospital sitesin [place], [place], [place] and [place]. This disclosure is being madepursuant to the Care Everywhere program and may not contain all information available regarding this patient. 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 Scanned Document CARDIAC SERVICES ORD ERABLES * PATHOLOGY TISSUE (02/21/2023 12:02 PM CONFERENCE CENTER COORDINATOR) Case Report Surgical Pathology Report Case: [id number] Authorizing Provider: Kevin Hirsch MD Collected: 02/21/2023 12:02 PM Ordering Location: [facility] OP Received: 02/21/2023 03:27 PM Pathologist: Carmelina Celaya MD Specimens: A) - [place] Lymph Node, Right Axilla sentinel node #1 stitch at hot spot B) - [place] Lymph Node, [place] Lymph node stitch #2 at hot spot C) - Skin, Right arm melanoma stitch at 12 o clock D) - Margin, right arm melanoma inferior margin E) - Margin, right arm melanoma superior margin F) - Skin, scalp melanoma stitch 12 oclock G) - Margin, Deep Margin 03/07/2023 9:[address] COORDINATOR [facility] Final Diagnosis Skin, right arm, melanoma, stitch at 12:00, oriented re-excision (C): - Negative for residual malignant melanoma and pttzcerl-dp-tjvr - Biopsy site changes Skin, right arm, melanoma, inferior margin, excision (D): - Negative for malignant melanoma and abzcavkp-sl-cyzw Skin, right arm, melanoma, superior margin, excision (E): - Negative for malignant melanoma and nsgenfmn-yv-hfsp Lymph node, right axilla, sentinel node #1, stitch at hot spot, biopsy (A): - No histopathologic abnormality (negative for melanoma), 2 nodes Lymph node, right axilla, sentinel node #2, stitch at hot spot, biopsy (B): - No histopathologic abnormality (negative for melanoma), 1 node Skin, scalp, melanoma, stitch at 12:00, oriented re-excision (F): - Negative for residual malignant melanoma and okhcrduf-km-uttw - Biopsy site changes - Full-thickness actinic keratosis, not at margin Soft tissue, scalp, deep margin, excision (G): - No histopathologic abnormality (negative for melanoma) 03/07/2023 9:01 PM [facility] Microscopic Description and Comment Microscopic examination substantiates the final diagnosis. See the synoptic report for additional details. All sentinel lymph nodes (blocks A1, A2, A3, B1, B2, and B3) are negative for melanoma on the H and E levels and on the MART1 and HMB45 immunostains. Controls stained appropriately. 03/07/2023 9:01 PM [facility] Clinical History The patient is a 67-year-old man. 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 Operative procedure/findings: Intraoperative mapping, sentinel lymph node dissection, wide excision of right arm melanoma and wide excision of posterior scalp melanoma performed 03/07/2023 9:01 PM [facility] Gross Description The requisition and [...] entirely submitted as follows: A1-smaller node, bisected, D5-T1-ibxoeq lymph node, serially sectioned Received in formalin, [...] entirely submitted as follows: C1-C2-12o'clock margin, perpendicular, C2-Q8-qfedvjouhi sections from 12-6 o'clock, C9-C10-6o'clock margin, perpendicular Received in formalin, specimen D is a 2.5 x 1.8 cm and oriented triangular avalos-pink skin excised to a depth of 1.5 cm. The skin and underlying soft tissue are avalos-pink to yellow and lobulated and unremarkable with focal blue dye injection. A central claims representative perpendicular section is submitted in cassette D1. Received in formalin, specimen E is a 3.0 x 2.5 cm unoriented triangular avalos-pink skin excised to a depth of 2.0 cm. The skin and underlying soft tissue are avalos-pink to yellow and lobulated and unremarkable with focal blue dye injection. A central claims representative perpendicular section is submitted in cassette [...] entirely submitted as follows: F1-12o'clock margin, perpendicular, X6-B4-ysdwdawfkh sections from 12-6 o'clock, F10-6o'clock margin, perpendicular Received in formalin, specimen G is a 2.0 x 1.2 x 0.3 cm flattened unoriented portion of fibroadipose and soft tissue. 1 aspect is inked blue and the opposing aspect is inked black. Serial sectioning shows avalos-pink to yellow lobulated cut surface. The specimen is entirely submitted in cassette G1-G2. IKRolando 03/07/2023 9:01 PM [facility] Pathologist Location at [facility] 03/07/2023 9:01 PM [facility] Disclaimer The performance characteristics of all immunohistochemical and indirect immunofluorescence stains (if any) cited in this report were determined by the Histopathology Laboratory of [facility]. Some of these tests were developed [...] the attending (teaching) pathologist. 03/07/2023 9:01 PM [facility] Synoptic Report MELANOMA OF THE SKIN: Excision, Re-Excision MELANOMA OF THE SKIN: EXCISION, RE-EXCISION - A, B, C, D, E 8th Edition - Protocol posted: 01/04/2021 SPECIMEN Procedure: Re-excision Procedure: [place] node(s) biopsy Specimen Laterality: Right TUMOR Tumor [...] of Lymph Nodes Examined: 3 Number of [place] Nodes Examined: 3 PATHOLOGIC STAGE CLASSIFICATION (pTNM, AJCC 8th Edition): : Classification assigned in this report includes information from a prior procedure: [id number] A: nodular melanoma, Breslow at least 1.0 [...] report includes information from a prior procedure: [id number] B: lentigo maligna melanoma, Breslow at least 0.4 mm, Josefina at least IV, invasive melanoma present at deep margin, non-ulcerate TNM Descriptors: m (multiple) pT Category: pT1a pN Category: pN not assigned (no nodes submitted or found) 03/07/2023 9:01 PM CONFERENCE CENTER COORDINATOR [facility] Embedded Images 03/07/2023 9:01 [address]FERENCE [address] COORDINATOR [facility] Lymph Node Dissection SPECIMEN FROM SENTINEL LYMPH NODE / Unknown 02/21/2023 12:02 PM CONFERENCE CENTER COORDINATOR 02/21/2023 3:27 PM CONFERENCE CENTER COORDINATOR Comment:Pre-op diagnosis: MELANOMA OF RIGHT UPPER ARM; MELANOMA OF SCALP Lymph Node Dissection SPECIMEN FROM SENTINEL LYMPH NODE / Unknown 02/21/2023 12:10 PM CONFERENCE CENTER COORDINATOR 02/21/2023 3:27 PM CONFERENCE CENTER COORDINATOR Comment:Pre-op diagnosis: MELANOMA OF RIGHT UPPER ARM; MELANOMA OF SCALP Biopsy, Excision TISSUE SPECIMEN FROM SKIN / Unknown 02/21/2023 12:23 PM CONFERENCE CENTER COORDINATOR 02/21/2023 3:27 PM CONFERENCE CENTER COORDINATOR Comment:Pre-op diagnosis: MELANOMA OF RIGHT UPPER ARM; MELANOMA OF SCALP Biopsy, Excision (Margin) 02/21/2023 12:32 PM CONFERENCE CENTER COORDINATOR 02/21/2023 3:27 PM CONFERENCE CENTER COORDINATOR Comment:Pre-op diagnosis: MELANOMA OF RIGHT UPPER ARM; MELANOMA OF SCALP Biopsy, Excision (Margin) 02/21/2023 12:33 PM CONFERENCE CENTER COORDINATOR 02/21/2023 3:27 PM CONFERENCE CENTER COORDINATOR Comment:Pre-op diagnosis: MELANOMA OF RIGHT UPPER ARM; MELANOMA OF SCALP Biopsy, Excision TISSUE SPECIMEN FROM SKIN / Unknown 02/21/2023 1:13 PM CONFERENCE CENTER COORDINATOR 02/21/2023 3:27 PM CONFERENCE CENTER COORDINATOR Comment:Pre-op diagnosis: MELANOMA OF RIGHT UPPER ARM; MELANOMA OF SCALP Biopsy, Excision (Margin) 02/21/2023 1:17 PM CONFERENCE CENTER COORDINATOR 02/21/2023 3:27 PM CONFERENCE CENTER COORDINATOR Comment:Pre-op diagnosis: MELANOMA OF RIGHT UPPER ARM; MELANOMA OF SCALP Kevin Hirsch MD LAB - PATHOLOGY/CYTO LOGY ORDERABLES [facility] [address] [phone] * ETT LINE PERFORMABLE (02/21/2023 11:34 AM CONFERENCE CENTER COORDINATOR) Narrative Saman Burkett DO - 02/21/2023 11:34 AM CONFERENCE CENTER COORDINATOR Saman Burkett DO 02/21/2023 11:35 AM Endotracheal Tube Placement: Patient Location: OR. Intubation Event Date/Time: 02/21/2023 11:26 AM Procedure: intubation ([id number]). Procedure Section: Sedation: under general anesthesia. Indications [...] ORDERABLES * NM LYMPHOSCINTIGRAPHY (02/21/2023 9:37 AM CONFERENCE CENTER COORDINATOR) Anatomical Region Laterality Modality Nuclear Medicine 02/21/2023 9:40 AM CONFERENCE CENTER COORDINATOR Impressions 02/21/2023 11:58 AM CONFERENCE CENTER COORDINATOR Impression: [place] lymph node identification and marking in the right axilla. > Dictated by Christianne Barrett MD (Telecom Network Manager) 02/21/2023 9:40 AM IDoyle DO have personally reviewed and interpreted this examination/study. > Interpreting Provider: Doyle Daniel DO on 02/21/2023 11:58 AM Narrative 02/21/2023 11:58 AM CONFERENCE CENTER COORDINATOR PROCEDURE: NM LYMPHOSCINTIGRAPHY DATE/TIME OF EXAM: 02/21/2023 [...] for the allen time ofthe study. Impression: [place] lymph node identification and marking in the right axilla. > Dictated by Christianne Barrett MD (Telecom Network Manager) 02/21/2023 9:40AM Doyle Guardado DO have personally reviewed and interpreted this examination/study. > Interpreting Provider: Doyle Daniel DO on 02/21/2023 11:58 AM Kevin Hirsch MD NM ORDERABLES * CBC WITH DIFFERENTIAL (02/11/2023 3:40 PM [facility]) WBC 7.7 4.0 - 10.7 x10E9/L 02/11/2023 4:41 PM [facility] RBC Count 4.61 4.30 - 5.80 x10E12/L 02/11/2023 4:41 PM [facility] Hemoglobin 14.2 13.3 - 17.5 g/dL 02/11/2023 4:41 PM [facility] Hematocrit 41.4 38.7 - 51.1 % 02/11/2023 4:41 PM [facility] MCV 89.8 80.0 - 98.0 fL 02/11/2023 4:41 PM [facility] MCH 30.8 26.7 - 33.6 pg 02/11/2023 4:41 PM [facility] MCHC 34.3 31.7 - 36.3 g/dL 02/11/2023 4:41 PM [facility] RDW-CV 12.7 11.3 - 14.8 % 02/11/2023 4:41 PM [facility] Platelet Count 240 150 - 420 x10E9/L 02/11/2023 4:41 PM [facility] MPV 11.2 7.8 - 11.4 fL 02/11/2023 4:41 PM [facility] Neutrophil % 54.2 41.0 - 74.0 % 02/11/2023 4:41 PM [facility] Lymphocyte % 34.9 17.0 - 47.0 % 02/11/2023 4:41 PM [facility] Monocyte % 6.3 3.0 - 11.0 % 02/11/2023 4:41 PM [facility] Eosinophil % 3.7 0.0 - 7.0 % 02/11/2023 4:41 PM [facility] Basophil % 0.5 0.0 - 1.6 % 02/11/2023 4:41 PM [facility] Immature Granulocytes % 0.4 0.0 - 1.0 % 02/11/2023 4:41 PM [facility] Neutrophil Absolute 4.15 1.60 - 7.50 x10E9/L 02/11/2023 4:41 PM [facility] Lymphocyte Absolute 2.67 1.00 - 4.40 x10E9/L 02/11/2023 4:41 PM [facility] Monocyte Absolute 0.48 0.15 - 1.00 x10E9/L 02/11/2023 4:41 PM [facility] Eosinophil Absolute 0.28 0.00 - 0.60 x10E9/L 02/11/2023 4:41 PM [facility] Basophil Absolute 0.04 0.00 - 0.13 x10E9/L 02/11/2023 4:41 PM [facility] Blood BLOOD SPECIMEN / Unknown Lab Venipuncture / Unknown 02/11/2023 3:40 PM CONFERENCE CENTER COORDINATOR 02/11/2023 4:33 PM CONFERENCE CENTER COORDINATOR Kevin Hirsch MD LAB - HEMATOLOGY ORD ERABLES Performing Organization Address [facility] Co de Phone Number [address] [phone] [phone] * COMPREHENSIVE METABOLIC PANEL (02/11/2023 3:40 PM CONFERENCE CENTER COORDINATOR) BUN 11 7 - 26 mg/dL 02/11/2023 5:03 PM [facility] Creatinine 0.83 0.71 - 1.16 mg/dL 02/11/2023 5:03 PM [facility] Sodium 139 136 - 145 mmol/L 02/11/2023 5:03 PM [facility] Potassium 4.2 3.5 - 4.5 mmol/L 02/11/2023 5:03 PM [facility] Chloride 107 98 - 107 mmol/L 02/11/2023 5:03 PM [facility] CO2 25 22 - 29 mmol/L 02/11/2023 5:03 PM [facility] Glucose 87 70 - 115 mg/dL 02/11/2023 5:03 PM [facility] Calcium 9.3 8.4 - 10.2 mg/dL 02/11/2023 5:03 PM [facility] Protein Total 7.2 6.0 - 8.3 g/dL 02/11/2023 5:03 PM [facility] Albumin 4.0 3.4 - 5.0 g/dL 02/11/2023 5:03 PM [facility] Bilirubin Total 0.6 0.2 - 1.2 mg/dL 02/11/2023 5:03 PM [facility] Alkaline Phosphatase 62 40 - 150 U/L 02/11/2023 5:03 PM [facility] ALT 27 5 - 55 U/L 02/11/2023 5:03 PM [facility] AST 20 5 - 34 U/L 02/11/2023 5:03 PM [facility] Anion Gap 7 6 - 16 02/11/2023 5:03 PM [facility] BUN/Creatinine Ratio 13 7 - 23 02/11/2023 5:03 PM [facility] Osmolality Calculated 287 275 - 295 mOsm/kg 02/11/2023 5:03 PM [facility] Albumin/Globulin Ratio 1.3 1.1 - 2.3 02/11/2023 5:03 PM [facility] eGFR by CKD-EPI >90 >=90 mL/min/1.7 3 m2 02/11/2023 5:03 PM [facility] Blood BLOOD SPECIMEN / Unknown Lab Venipuncture / Unknown 02/11/2023 3:40 PM CONFERENCE CENTER COORDINATOR 02/11/2023 4:33 PM CONFERENCE CENTER COORDINATOR Kevin Hirsch MD LAB - CHEMISTRY LIBAN ARE[facility] Organization Address [facility]/State/[facility] Co de Phone Number [facility] [address] [place] [phone], [facility] [phone] * XR CHEST 2VW (02/11/2023 3:33 PM CONFERENCE CENTER COORDINATOR) Anatomical Region Laterality Modality Chest Radiographic Aide ging 02/11/2023 3:37 PM CONFERENCE CENTER COORDINATOR Impressions 02/11/2023 4:44 PM CONFERENCE CENTER COORDINATOR IMPRESSION: No suspicious pulmonary nodules. Report dictated by Misael Cline MD (residential concierge). I, Casa Arias DO have personally reviewed and interpreted this examination/study. > Interpreting Provider: Casa Arias DO on 02/11/2023 4:44 PM Narrative 02/11/2023 4:44 PM CONFERENCE CENTER COORDINATOR EXAMINATION: XR CHEST 2VW DATE/TIME OF EXAM: 02/11/2023 3:33 PM, LOCATION [facility] HISTORY: C43.61: Melanoma of right upper arm [...] DATE/TIME OF EXAM: 02/11/2023 3:33 PM, LOCATION [facility] HISTORY: C43.61: Melanoma of right upper arm [...] nodules. Report dictated by Misael Cline MD (residential concierge). ICasa DO have personally reviewed and interpreted this examination/study. > Interpreting Provider: Casa Arias DO on 02/11/2023 4:44 PM Kevin Hirsch MD DIAGNOSTIC IMAGING O RDERABLES * EKG 12-LEAD (02/11/2023 2:20 PM CONFERENCE CENTER COORDINATOR) Ventricular Rate 69 BPM [facility] Atrial Rate 69 BPM [facility] P-R Interval 162 ms [facility] QRS Duration ms 96 ms [facility] Q-T Interval ms 414 ms [facility] QTC Calculation (Bezet) 443 ms [facility] Calculated P [place] 51 degrees [facility] Calculated R [place] 23 degrees [facility] Calculated T [place] 42 degrees [facility] Interpretation EKG NORMAL SINUS RHYTHM NORMAL ECG NO PREVIOUS ECGS AVAILABLE Confirmed by MISAEL STALLINGS, AMY ([id number]) on 02/14/2023 9:26:04 PM [facility] MUSE 02/11/2023 2:20 PM CONFERENCE CENTER COORDINATOR 02/14/2023 9:26 PM CONFERENCE CENTER COORDINATOR Kevin Hirsch MD ECG ORDERABLES [facility] MUSE * DERMATOPATHOLOGY (01/31/2023 3:33 AM CONFERENCE CENTER COORDINATOR) Case Report Dermatopathology Report Case: [id number] Authorizing Provider: Macario Ignacio MD Collected: 01/31/2023 03:33 AM Ordering Location: [facility] D[facility] Lab Received: 02/04/2023 12:57 PM Pathologist: Masha Cervantes MD Specimens: A) - Skin, rght lproximal posterior arm B) - Skin, posterior scalp 5:10 PM CONFERENCE CENTER COORDINATOR DERMATOPATHOLOGY LABORATORY Final Diagnosis Specimen A. SKIN, right lproximal posterior arm: MALIGNANT MELANOMA, NODULAR TYPE BRESLOW THICKNESS 1.0 MM, JOSEFINA LEVEL IV PRESENT AT MARGIN (C43.61) (see microscopic description and synoptic report) Specimen B. SKIN, posterior scalp: MALIGNANT MELANOMA, LENTIGINOUS TYPE BRESLOW THICKNESS 0.4 MM, JOSEFINA LEVEL III PRESENT AT MARGIN (C43.4) (see microscopic description and synoptic report) 5:10 PM CONFERENCE CENTER COORDINATOR DERMATOPATHOLOGY LABORATORY Clinical History A: Neoplasm of Uncertain Behavior vs. Basal Cell Carcinoma vs. Melanoma B: Neoplasm of Uncertain Behavior vs. Melanoma 3 5:10 PM CONFERENCE CENTER COORDINATOR DERMATOPATHOLOGY LABORATORY Gross Description Specimen A: [...] 11x7x1 mm. Jar 0. 3 5:10 PM CONFERENCE CENTER COORDINATOR DERMATOPATHOLOGY LABORATORY Microscopic Description Specimen A. SKIN, [...] margin of the specimen. 3 5:10 PM [facility] DERMAT[facility]ORATORY Disclaimer An external and internal positive and negative controls are appropriate for the histochemical, immunohistochemical and immunofluorescence stain(s) in this case (if any), except where stated explicitly. The performance characteristics of the stain(s) cited in this report were developed and its performance characteristic determined by the Dermatopathology Laboratory at [facility], directed by Dr. Justa Vasquez. These tests need not be, and therefore are not, approved by the [place] Food and Drug Administration. The tests are used for clinical purposes. Billing Codes Specimen Charges Stain Charges 66455 [id number] 1 1 [id number] 36890 1 1 3 5:10 PM [facility] DERMATOPATHOLOGY [facility]ORATORY Embedded Images 3 5:10 PM [facility] DERMATOPATHOLOGY [facility]ORATORY Synoptic Report MELANOMA OF THE [...] Dr Gracie Cervantes who agrees. 5:10 PM CONFERENCE CENTER COORDINATOR DERMATOPATHOLOGY LABORATORY Pathology/Cytology TISSUE SPECIMEN FROM SKIN / Unknown 01/31/2023 3:33 AM CONFERENCE CENTER COORDINATOR 02/04/2023 12:57 PM CONFERENCE CENTER COORDINATOR Miscellaneous samples (specimen) TISSUE SPECIMEN FROM SKIN / Unknown 01/31/2023 3:33 AM CONFERENCE CENTER COORDINATOR 02/04/2023 12:57 PM CONFERENCE CENTER COORDINATOR Macario Ignacio MD LAB - PATHOLOGY/CYTO LOGY ORDERABLES DERMATOPATHOLOGY LABORATORY [facility] - Department of Dermatology [facility] Specialized Medicine [address] [facility] [phone] Care Teams Service Counter Cashier Relationship Specialty [place] [address] [place] [address] PCP - General Internal Medicine 02/08/23 Macario Ignacio MD [facility] DERMATOLOGY [address] [place] [address] [phone] Referring Physician Dermatology 02/08/23
--- OUTSIDE RECORDS SUMMARY | 2024-04-23 02:44 | XMS_ITS | Encounter Summary ---
Author Organization [facility] Address [facility] [place] [address] Care Team Providers Care Tag Maker Name Role Phone Nicky Jimenez MD Primary Care Provider [phone] None, Provider Primary Care Provider Unavaila ble Encounter Details Date Type Department Care Team (Late st Contact Info) Description 11/27/2019 NOWBOX Message Enc [facility] Family & Internal Medicine [facility] [address] [place] [address] Yvette Carlos, LINDA [address] [place] [address] Follow Up/Update Social History Tobacco [...] documented as of this encounter Care Teams Tag Maker Relationship Specialty Start Date End Date Nicky Jimenez MD PCP - General 08/03/16 01/21/23 None, Provider, PCP - General UNKNOWN PHYSICIAN SPECIALTY 01/22/23 documented as of this encounter
--- OUTSIDE RECORDS SUMMARY | 2024-04-23 02:44 | XMS_ITS | Encounter Summary ---
Author Organization [facility] Address [facility] [place] [address] Care Team Providers Care Chart Collector Name Role Phone Nicky Jimenez MD Primary Care Provider [phone] None, Provider Primary Care Provider Unavaila ble Encounter Details Date Type Department Care Team (Late st Contact Info) Description 06/02/2019 Tangler Message Enc [facility] Family & Internal Medicine [facility] [address] [place] [address] Yvette Carlos, LINDA [address] [place] [address] RE: Follow Up/Update Social History [...] documented as of this encounter Care Teams Chart Collector Relationship Specialty Start Date End Date Nicky Jimenez MD PCP - General 08/03/16 01/21/23 None, Provider, PCP - General UNKNOWN PHYSICIAN SPECIALTY 01/22/23 documented as of this encounter
--- OUTSIDE RECORDS SUMMARY | 2024-04-23 02:44 | XMS_ITS | Referral Summary ---
Author Organization [facility] Address [address] [facility] [place] [address] Care Team Providers Care Events And Promotions Assistant Name Role Phone Khalif Ortega MD Unavailable [phone] Lam Torres MD Primary Care Provider [phone] Carly Corea Unavailable [phone] Nette Durham MD Unavailable [phone] Jesus Brwone MD Unavailable + [phone] Rory Gooden MD Unavailable [phone] Alec Sparks MD Unavailable [phone] Macario Ignacio MD Unavailable [phone] Encounters Date Type Department Care Team Description 04/20/2024 2:30 PM DRAPERY AND UPHOLSTERY ESTIMATOR Office Visit [facility] [address] [place] [address] Medical Office Building [address] [place] [phone] Aneta Rodriguez PA Grade II internal hemorrhoids (Primary Dx); Thrombosed hemorrhoids 04/13/2024 Telephone [facility] Primary Care at [address] [address] Lam Torres MD Medical Records Request 04/08/2024 12:30 PM DRAPERY AND UPHOLSTERY ESTIMATOR Telemedicine [facility] [address] [facility] [address] 6th [address] [place] [address] González Almaraz MD KOBE (obstructive sleep apnea) (Primary Dx); BMI 32.0-32.9,adult 03/17/2024 Telephone [facility] Primary Care at [address] [phone] Lam Torres MD PA for Nexletol 03/16/2024 Orders Only [facility] Primary Care at [address] [phone] Lam Torres MD 03/16/2024 10:52 AM DRAPERY AND UPHOLSTERY ESTIMATOR - 03/16/2024 11:59 PM DRAPERY AND UPHOLSTERY ESTIMATOR Hospital Encounter [address] [address] Primary hypertension; Mixed hyperlipidemia Discharge Disposition: Discharge to home or self care 03/16/2024 11:30 AM DRAPERY AND UPHOLSTERY ESTIMATOR Ancillary Procedure [facility] Imaging at [address] [address] 03/16/2024 10:45 AM DRAPERY AND UPHOLSTERY ESTIMATOR Lab [facility] Outpatient Lab at [address] [address] Hyperlipidemia (Primary Dx); Hypertension 03/16/2024 10:15 AM DRAPERY AND UPHOLSTERY ESTIMATOR Office Visit [facility] Primary Care at [address] [address] Lam Torres MD Mixed hyperlipidemia (Primary Dx); Primary hypertension; Melanoma of right upper arm (HCC); Preoperative evaluation to rule out surgical contraindication 02/27/2024 4:30 PM DRAPERY AND UPHOLSTERY ESTIMATOR Procedure visit [facility] [address], [address] [place] [address] Paige Rivera Au.D. Sensory hearing loss, bilateral (Primary Dx) 02/21/2024 Telephone [facility] [address], [address] [place] [address] Dorothy Leon 02/12/2024 11:00 AM DRAPERY AND UPHOLSTERY ESTIMATOR Procedure visit [facility] [address], [address] [place] [address] Yoko Sim CCC-Solitario Sensorineural hearing loss (SNHL) of both ears (Primary Dx); Sensorineural hearing loss, bilateral 02/05/2024 Orders Only [facility] [address] [place] [address] González Almaraz MD KOBE (obstructive sleep apnea) (Primary Dx) 02/05/2024 Telephone [facility] [address] 6[address] [place] [address] Lexi Nicole RN DME order 02/04/2024 Orders Only [facility] Primary Care at [address] [phone] Mya Chris NP Thrombosed hemorrhoids (Primary Dx) 01/30/2024 Telephone [facility] [address] [place] [address] Yanet Gonzales CMA 01/29/2024 3:00 PM DRAPERY AND UPHOLSTERY ESTIMATOR Office Visit [facility] Primary Care at [address] [address] Mya Chris NP Thrombosed hemorrhoids (Primary Dx); Primary hypertension 01/28/2024 10:00 AM DRAPERY AND UPHOLSTERY ESTIMATOR Procedure visit [facility] [address] [place] [address] KOBE (obstructive sleep apnea) (Primary Dx) from Last 3 Months Allergies Active Allergy Reactions Criticality Noted Date Comments Tjjsrhs-Pio-Evu Reductase Inhibitors Dizziness,Mental status changes Medium 05/28/2023 Medications cholecalciferol, vitamin D3, (VITAMIN D3 ORAL)Indications:suppl ement Take 1 tablet by mouth every morning Active psyllium husk (METAMUCIL ORAL)Indications:const ipation Take 1 packet by mouth every morning Active peppermint oil liquidIndications:head ache Take 2 drops by mouth as needed Active aller xt-weed pollen-goldenrod 1:20 solution Liquid Active vitamin B complex (B COMPLEX 1 ORAL) Take by mouth Active magnesium gluconate 200 mg tabletIndications:hypo magnesemia 1 tablet (200 mg total) Active ZINC ORAL Take by mouth Active meloxicam (MOBIC) 15 mg tablet 2024 Active ascorbic acid (ascorbic acid with justina hips) 500 mg tablet,chewable Acti ve omega-3 fatty acids-fish oil (Fish OiL) 360-1,200 mg capsule Take by mouth Active NON FORMULARY, FOR CLINIC ADMINISTERED MEDICATIONS ONLY, (not in database) 1 each once Dandalion Root Active NON FORMULARY, FOR CLINIC ADMINISTERED MEDICATIONS ONLY, (not in database) 1 each once Lions Jerry Active bempedoic acid 180 mg tabletIndications:hete rozygous familial hypercholesterolemia Take 1 tablet by mouth nightly 30 tablet 3 2024 Active hydrocortisone (ANUSOL-HC) 25 mg suppository Insert 1 suppository (25 mg total) into the rectum 2 (two) times a day 12 suppository 2024 Active dilTIAZem XR 240 mg 24 hr capsuleIndications:Mimi talley hypertension TAKE 1 CAPSULE (240 MG TOTAL) BY MOUTH DAILY 30 capsule 1 2024 Active dilTIAZem XR 240 mg 24 hr capsuleIndications:Mimi talley hypertension TAKE 1 CAPSULE (240 MG TOTAL) BY MOUTH DAILY 30 capsule 1 04/21 Discontinued benzonatate (TESSALON) 200 mg capsule Take 1 capsule (200 mg total) by mouth 3 (three) times a day as needed for cough keep tessalon out of reach of children, especially children under the age of 10, due to possible serious risk such as if ingested by children under the age of 10. 30 capsule 04/08 Discontinued( Other) pitavastatin calcium (LIVALO) 2 mg tablet Take 0.5 tablets (1 mg total) by mouth nightly 30 tablet 1 04/08 Discontinued( Other) Active Problems Problem Noted Date Diagnosed Date Preoperative evaluation to r caitlyne out surgical contraindication 03/17/2024 Assessment & Plan (03/17/2024 1:47 PM DRAPERY AND UPHOLSTERY ESTIMATOR): addendum: reviewed labs, xr, ekg. he has [...] Wellness Visit has been performed today. Osiel Gacria is not up to date on screening [...] Epidural catheter with PAIN management following Dilaudid ACCESS NURSE Planning to keep chandler until epidural discontinued. Ventral hernia 11/17/2019 Overview (11/17/2019): Added automatically from request for surgery [id number] Assessment & Plan (12/07/2019 1:23 PM CDT): 12/01 [facility] OR Repair of open ventral hernia with bilateral posterior component separation with myofascial cutaneous release with synthetic mesh placed in the retrorectal space, inferior sternal reconstruction. RLQ drain subq LLQ drain above mesh -NPO, NG fell out post op. ARBF -Epidural/ACCESS NURSE,. Chandler until epidural removed. -[facility] in [...] (10/28/2019): Added automatically from request for surgery [id number] Hyperlipidemia 06/03/2019 Assessment & Plan (07/14/2020 9:55 [...] therapy. Assessment & Plan (01/13/2020 4:46 PM DRAPERY AND UPHOLSTERY ESTIMATOR): We will repeat lipid panel today, since [...] weight. Assessment & Plan (01/13/2020 4:47 PM DRAPERY AND UPHOLSTERY ESTIMATOR): He has lost 30 pounds since our [...] Hypertension Assessment & Plan (01/29/2024 4:34 PM DRAPERY AND UPHOLSTERY ESTIMATOR): BP elevated in office today, pt notes it is always high in office and is normal range at home. Continues Diltiazem 240 mg daily. Assessment & Plan (07/14/2020 9:55 AM CDT): Home BP has been adequately controlled, <140/90. He will continue on diltiazem and HCTZ and let me know if his home readings are consistently higher. 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 Not on file Not on file Not on file Last Filed Vital Signs Vital Sign Reading Time Taken Comments Blood Pressure 175/107 04/20/2024 1:57 PM DRAPERY AND UPHOLSTERY ESTIMATOR Pulse 72 04/20/2024 1:57 PM DRAPERY AND UPHOLSTERY ESTIMATOR Temperature 36.8 C (98.2 F) 04/20/2024 1:57 PM DRAPERY AND UPHOLSTERY ESTIMATOR Respiratory Rate 16 03/16/2024 10:14 AM DRAPERY AND UPHOLSTERY ESTIMATOR Oxygen Saturation 96% 04/20/2024 1:57 PM DRAPERY AND UPHOLSTERY ESTIMATOR Inhaled Oxygen Concentration - - Weight 106.1 kg (234 lb) 04/20/2024 1:57 PM DRAPERY AND UPHOLSTERY ESTIMATOR Height 180.3 cm (5' 11 ) 04/20/2024 1:57 PM DRAPERY AND UPHOLSTERY ESTIMATOR Body Mass Index 32.64 04/20/2024 1:57 PM DRAPERY AND UPHOLSTERY ESTIMATOR Plan of Treatment Not on file Medical Devices Implanted Type Area Apprentice Painter Brush Device Identifier Shelf Expiration Date Model / Serial / Lot [employer]/C R Bard [id number] Monofilament Soft Lightweight Low Profile Square - [id number] Implanted:Qty: 1 on 12/02/2019 by Jesus Browne MD at [facility] Mesh N/A: Abdomen [employer] R Bard [id number] 01/23/2024 [id number] / / [id number] Nucleus Ci 632 Profile Plus Cochlear Implant-09/23/19 21 Implanted:09/22 by Efra Bajwa MD (Quantity not on file) Ear Procedures Procedure Name Priority Date/Time Associated Diagnosis Comments XR CHEST PA LATERAL 2 VIEWS Routine 03/16/2024 10:59 AM DRAPERY AND UPHOLSTERY ESTIMATOR Preoperative evaluation to rule out surgical contraindication EGFR Routine 03/16/2024 10:52 AM DRAPERY AND UPHOLSTERY ESTIMATOR Primary hypertension DIFFERENTIAL AUTO Routine 03/16/2024 10: 52 AM DRAPERY AND UPHOLSTERY ESTIMATOR Primary hypertension LIPID PANEL Routine 03/16/2024 10:52 AM DRAPERY AND UPHOLSTERY ESTIMATOR Mixed hyperlipidemia COMPREHENSIVE METABOLIC PANEL Routine 03/16/2024 10:52 AM DRAPERY AND UPHOLSTERY ESTIMATOR Primary hypertension CBC WITH AUTO DIFFERENTIAL Routine 03/16/2024 10:52 AM DRAPERY AND UPHOLSTERY ESTIMATOR Primary hypertension ECG 12-LEAD Routine 03/16/2024 10:45 AM DRAPERY AND UPHOLSTERY ESTIMATOR Preoperative evaluation to rule out surgical contraindication PORTABLE/HOME SLEEP STUDY Routine 01/28/2024 10:00 PM DRAPERY AND UPHOLSTERY ESTIMATOR KOBE (obstructive sleep apnea) HEPATITIS C ANTIBODY Routine 05/14/2023 10:33 AM CDT Screening for hepatitis C declined PSA SCREEN Routine 05/14/2023 10:33 AM CDT Screening PSA (prostate specific antigen) COLONOSCOPY 11/12/2019 8:06 AM CDT from Last 3 Months or Most Recently Relevant to Health Maintenance Results * XR Chest Pa Lateral 2 Views (03/16/2024 10:59 AM DRAPERY AND UPHOLSTERY ESTIMATOR) Anatomical Region Laterality Modality Body, Chest N/A Digital Radiogra phy 03/17/2024 11:0 2 AM DRAPERY AND UPHOLSTERY ESTIMATOR Narrative 03/17/2024 11:05 AM DRAPERY AND UPHOLSTERY ESTIMATOR EXAM DESCRIPTION: XR CHEST PA LATERAL 2 [...] Boby Perla M.D. KR T: Report ID: [id number] Reading Location: [id number] Procedure Note Boby Perla MD - 03/17/2024 [...] Boby Perla M.D. KR T: Report ID: [id number] Reading Location: [id number] Lam Torres MD IMG XR PROCEDURES Final Res ult * eGFR (03/16/2024 10:52 AM DRAPERY AND UPHOLSTERY ESTIMATOR) eGFR 82 >=60 mL/min/1. 73 m2 Comment: [...] reviewed 2020. Blood 03/16/2024 10:5 2 AM DRAPERY AND UPHOLSTERY ESTIMATOR 03/16/2024 4:02 PM DRAPERY AND UPHOLSTERY ESTIMATOR us Lam Torres MD LAB BLOOD ORDERABLES Final Result [facility] [address] Department [place] [address] * Differential, auto (03/16/2024 10:52 AM DRAPERY AND UPHOLSTERY ESTIMATOR) Neutrophil abs 3.0 1.5 - 6.5 K/cumm Imm gran abs 0.0 0.0 - 0.1 K/cumm [facility] Lymphocyte abs 2.5 0.8 - 3.3 K/cumm [facility] Monocyte abs 0.5 0.2 - 0.8 K/cumm [facility] Eosinophil abs 0.1 0.0 - 0.5 K/cumm [facility] Basophil abs 0.0 0.0 - 0.1 K/cumm [facility] Neutrophil pct 48.5 % [facility] Comment: Interpretive Data Percent cell count reference ranges are not reported, since discordance with absolute values may lead to misinterpretation of CBC data. Current Interpretive Data was last revised on 2017. Imm gran pct 0.5 % [facility] Comment: Interpretive Data Percent cell count reference ranges are not reported, since discordance with absolute values may lead to misinterpretation of CBC data. Current Interpretive Data was last revised on 2017. Lymphocyte pct 40.4 % [facility] Comment: Interpretive Data Percent cell count reference ranges are not reported, since discordance with absolute values may lead to misinterpretation of CBC data. Current Interpretive Data was last revised on 2017. Monocyte pct 8.3 % [facility] Comment: Interpretive Data Percent cell count reference ranges are not reported, since discordance with absolute values may lead to misinterpretation of CBC data. Current Interpretive Data was last revised on 2017. Eosinophil pct 1.6 % [facility] Comment: Interpretive Data Percent cell count reference ranges are not reported, since discordance with absolute values may lead to misinterpretation of CBC data. Current Interpretive Data was last revised on 2017. Basophil pct 0.7 % [facility] Comment: Interpretive Data Percent cell count reference ranges are not reported, since discordance with absolute values may lead to misinterpretation of CBC data. Current Interpretive Data was last revised on 2017. Blood 03/16/2024 10:5 2 AM DRAPERY AND UPHOLSTERY ESTIMATOR 03/16/2024 3:31 PM DRAPERY AND UPHOLSTERY ESTIMATOR Lam Torres MD LAB BLOOD ORDERABLES Final Result Performing Organization Address [facility] de Phone Number [facility] [address] [place] [address] * (ABNORMAL) CBC with auto differential (03/16/2024 10:52 AM DRAPERY AND UPHOLSTERY ESTIMATOR) WBC 6.1 3.8 - 9.9 K/cumm Hgb [...] [facility]ERNER CH Blood 03/16/2024 10:5 2 AM DRAPERY AND UPHOLSTERY ESTIMATOR 03/16/2024 3:31 PM DRAPERY AND UPHOLSTERY ESTIMATOR Lam Torres MD LAB BLOOD ORDERABLES Final Result Performing Organization Address [facility] Co de Phone Number [facility] [address] Department of [employer] [place], [place] [id number] * (ABNORMAL) Lipid panel (03/16/2024 10:52 AM DRAPERY AND UPHOLSTERY ESTIMATOR) Cholesterol 288(H) 30 - 199 mg/dL Comment: [...] 3. Jigar Hendrickson et al. ASTRID Cardiol. 2019June 25;5(5):540-548. doi: 10.1001/jamacardio.2020.0013 Current Interpretive Data was last revised on 2023. Non-HDL Cholesterol 239 mg/dL [facility] Comment: Interpretive Data Ages < or = [...] CERNER CH Blood 03/16/2024 10:5 2 AM DRAPERY AND UPHOLSTERY ESTIMATOR 03/16/2024 3:31 PM DRAPERY AND UPHOLSTERY ESTIMATOR Lam Torres MD LAB BLOOD ORDERABLES Final Result [facility] [address] Department [place] [address] * Comprehensive metabolic panel (03/16/2024 10:52 AM DRAPERY AND UPHOLSTERY ESTIMATOR) Sodium 139 135 - 145 mmol/L Potassium, [...] CERNER CH Blood 03/16/2024 10:5 2 AM DRAPERY AND UPHOLSTERY ESTIMATOR 03/16/2024 3:31 PM DRAPERY AND UPHOLSTERY ESTIMATOR us Lam Torres MD LAB BLOOD ORDERABLES Final Result Performing Organization Address City/State/ZIP [facility] Phone Number [facility] [address] [facility] Department [place] [address] * ECG 12-LEAD (03/16/2024 10:45 AM DRAPERY AND UPHOLSTERY ESTIMATOR) Narrative Lam Torres MD - 03/16/2024 10:45 AM DRAPERY AND UPHOLSTERY ESTIMATOR Lam Torres MD 03/16/2024 8:15 PM ECG [...] * PORTABLE/HOME SLEEP STUDY (01/28/2024 10:00 PM DRAPERY AND UPHOLSTERY ESTIMATOR) Narrative González Almaraz MD - 01/28/2024 10:00 PM DRAPERY AND UPHOLSTERY ESTIMATOR González Almaraz MD 01/30/2024 2:14 PM Portable/Home [...] MD [place] B[place] [address] [place] [employer] [place] [address] * Hepatitis C antibody Blood (05/14/2023 10:33 AM CDT) Pathologist [facility] Hep C Ab Nonreactive Nonreactive Comment: Interpretive [...] 2:37 PM CDT Lam Torres MD LAB MICROBIOLOGY - GENERAL ORDERABLES Final Result Performing Organization Address City/State/[facility] Co vt Phone Number [facility] [address] [facility] [facility] Department [place] [address] * COLONOSCOPY (11/12/2019 8:06 AM CDT) Anatomical Region Laterality Modality Other Narrative Procedure Note Casa Mccracken MD - 11/12/2019 8:06 AM CDT ENDOSCOPY LAB Patient Name: Osiel Garica Procedure Date: 11/12/2019 8:06 AM Date of : 1955 Admit Type: Outpatient Age: 64 Gender: Male Attending MD: Casa Mccracken M.D. Room: [facility] ENDOSCOPY ROOM 02 Note Status: Finalized [...] Thescope was passed under direct vision. The [id number] introduced through the anus and advanced to the cecum, identified by appendiceal orifice and ileocecal valve.The colonoscopy was performed without difficulty. Thepatient tolerated the procedure well. The quality of the bowel preparation was evaluated using the BBPS ([place] Bowel Preparation Scale) with scores of: Right [...] Recently Relevant to Health Maintenance Insurance MEDICARE [employer] Member Subscriber Plan / Payer (Ef fective 2016-Present) Name:Osiel Garcia Relation to Subscriber:Self Name:Osiel Garcia Payer ID:[id number] Group ID:[id number] Type:COMMERCIAL Address: [place] [address] MEDICARE [employer] Member Subscriber Plan / Payer (Ef fective 2019-Present) Name:Osiel Garcia Relation to Subscriber:Self Name:Osiel Garcia Payer ID:[id number] Group ID:[id number] Type:COMMERCIAL Address: [address] [place] [id number] MEDICARE [facility] Address: [address] [place] [id number] [employer] Member Subscriber Plan / Payer (Ef fective 2019-Present) Name:Osiel Garcia Relation to Subscriber:Self Name:Osiel Garcia Payer ID:[id number] Group ID:[id number] Type:COMMERCIAL Address: [address] [place] [id number] Advance Directives For more information, please contact: [phone] * Full Code (Latest Code Status on File) Date Activated Date Inactivated Comments 12/02/2019 7:19 PM 12/08/2019 2:57 PM * Full Code Date Activated Date Inactivated Comments 11/12/2019 7:21 AM 11/12/2019 1:36 PM Care Teams Events And Promotions Assistant Relationship Specialty Start Date End Date Lam Torres MD [address] [place] [address] PCP - General Family Medicine 05/14/23 Khalif Ortega MD [address] [place] [address] Referring Physician Otolaryngology 04/15/18 Carly Corea PA [address] [place] [address] Physician Disc Jockey 05/14/23 Nette Durham MD [address] [place] [address] Consulting Physician Cardiology 05/14/23 Jesus Browne MD [address] [facility] [phone] [place] [address] Surgeon Surgical Critical Care 05/14/23 Rory Gooden MD [address] [place] [address] Consulting Physician Urology 05/14/23 Alec Sparks MD [address] [place] [address] Referring Physician Orthopedic Surgery 03/16/24 Macario Ignacio MD [address] [place] [address] Dermatology 03/16/24
--- OUTSIDE RECORDS SUMMARY | 2024-04-23 02:44 | XMS_ITS | Clinical Summary ---
Author Organization [facility] Address [address] [place] [address] Care Team Providers Care Survey Operations Director Name Role Phone None, Provider MD Primary [...] Epidural catheter with PAIN management following Dilaudid CIVIL ENGINEERING DRAFTER Planning to keep chandler until epidural discontinued. Ventral hernia 11/17/2019 Overview (06/21/2020): Added automatically from request for surgery [id number] Last Assessment & Plan: 12/01 [facility] OR Repair of open ventral hernia with bilateral posterior component separation with myofascial cutaneous release with synthetic mesh placed in the retrorectal space, inferior sternal reconstruction. RLQ drain subq LLQ drain above mesh -NPO, NG fell out post op. ARBF -Epidural/CIVIL ENGINEERING DRAFTER,. Chandler until epidural removed. -[facility] in [...] 11/06/2019 Immunizations Name Administration Dates Next Due iBbiana (Quadrivalent) 02/09/2020 Fluzone High Dose - >Age 65 (Prefilled Syringe) 12/06/2020 Influenza Adult (Generic) 02/09/2020 Pneumococcal (Pneumovax 23) 06/21/2020 Pneumococcal (Prevnar 13) 04/20/2019 Shingrix 04/07/2020,02/09/2020 Tdap (Adacel) 07/13/2015 Tdap (Generic) 07/13/2015 Zoster (Zostavax) 67323 Unt/0.65Ml 04/07/2020, Family History Medical History Relation [...] (#1) 2023 12/06/2020, 02/09/2020, 02/09/2020 PHQ-2 (Physician Ione) 02/26/2024 DTaP, Tdap and Td Vaccines (3 [...] topic Medical Devices Implanted Type Area Director Weights And Measures Device Identifier Shelf Expiration Date Model / Serial / Lot Urolift - [id number] Implanted:Qty: 1 on 06/08/2020 by Rory Gooden MD at [facility] N/A: Urethra [employer] 11/23/2021 UL400- 4 / / [id number] Urolift - [id number] Implanted:Qty: 1 on 06/08/2020 by Rory Gooden MD at [facility] N/A: Urethra [employer] 11/23/2021 UL400- 4 / / [id number] Urolift - [id number] Implanted:Qty: 1 on 06/08/2020 by Rory Gooden MD at [facility] N/A: Urethra [employer] 09/28/2021 UL400- 4 / / [id number] Urolift - [id number] Implanted:Qty: 1 on 06/08/2020 by Rory Gooden MD at [facility] N/A: Urethra [employer] 09/28/2021 UL400- 4 / / [id number] Urolift - [id number] Implanted:Qty: 1 on 06/08/2020 by Rory Gooden MD at [facility] N/A: Urethra [employer] 11/16/2021 UL400- 4 / / [id number] Explanted Type Area Director Weights And Measures Device Identifier Shelf Expiration Date Model / Serial / Lot Urolift Explanted:Qty: 1 on 06/08/2020 at [facility] N/A: Urethra 11/23/2021 UR125-5 / / [id number] Procedures Procedure Name Priority Date/Time Associated Diagnosis Comments COLONOSCOPY GENERIC (SCAN ORDER) 11/12/2019 HEPATITIS C ANTIBODY Routine 04/14/2019 10:34 AM AGRONOMY TECHNICIAN Need for hepatitis C screening test from Last 3 Months or Most Recently Relevant to Health Maintenance Results * COLONOSCOPY GENERIC (11/12/2019) 11/12/2019 Narrative 11/12/2019 Ordered by an unspecified provider. us Documents Scanned SCANNING Final Result * HEPATITIS C ANTIBODY (04/14/2019 10:34 AM AGRONOMY TECHNICIAN) HEPATITIS C AB NON-REACTI VE NON-REACTI VE 04/14/2019 8:42 PM AGRONOMY TECHNICIAN [facility] 04/14/2019 10:3 4 AM AGRONOMY TECHNICIAN [facility] Final Result [facility] [address] [place] [address], [place] [phone] from Last 3 Months or Most Recently Relevant to Health Maintenance Insurance MEDICARE [facility]ICARE [facility] Care Teams Survey Operations Director Relationship Specialty Start Date End Date None, Provider, MD PCP - General UNKNOWN PHYSICIAN SPECIALTY 01/22/23
--- OUTSIDE RECORDS SUMMARY | 2024-04-23 02:44 | XMS_ITS | Encounter Summary ---
Author Organization [facility] Address [facility] access [facility] [place] [address] Care Team Providers Care Coconut Jelly Roller Name Role Phone Nicky Jimenez MD Primary Care Provider [phone] None, Provider Primary Care Provider Unavaila ble Encounter Details Date Type Department Care Team (Late st Contact Info) Description 07/21/2019 [employer] Message Enc [facility] Family & Internal Medicine [facility] [address] [place] [address] Yvette Carlos, LINDA [address] [place] [address] Follow Up/Update Social History Tobacco [...] documented as of this encounter Care Teams Coconut Jelly Roller Relationship Specialty Start Date End Date Nicky Jimenez MD PCP - General 08/03/16 01/21/23 None, Provider, PCP - General UNKNOWN PHYSICIAN SPECIALTY 01/22/23 documented as of this encounter
--- OUTSIDE RECORDS SUMMARY | 2024-04-23 02:44 | XMS_ITS | Encounter Summary ---
Author Organization [facility] Address [address] [place] [address] Care Team Providers Care Pet House Sitter Name Role Phone Nicky Jimenez MD Primary Care Provider [phone] Macario Ignacio MD Unavailable [phone] Encounter Details Date Type Department Care Team (Late st Contact Info) Description 02/01/2023 Lab Requisition [facility] [address] [facility] [place] [phone] Macario Ignacio MD [facility] [address] [place] [phone] Neoplasm of uncertain behavior of skin Social History Tobacco Use Types Packs/Day Years Used Date Smoking Tobacco: Never Assessed Sex and Gender Information Value Date Recorded Sex Assigned at Male 02/11/2023 2:10 PM TIE BINDER Gender Identity Male 02/11/2023 2:10 PM TIE BINDER Sexual Orientation Straight 02/11/2023 2: 10 PM TIE BINDER documented as of this encounter Plan of Treatment Not on file documented as of this encounter Procedures Procedure Name Priority Date/Time Associated Diagnosis Comments DERMATOPATHOLOGY Routine 01/31/2023 3:33 AM TIE BINDER Neoplasm of uncertain behavior of skin documented in this encounter Results * DERMATOPATHOLOGY (01/31/2023 3:33 AM TIE BINDER) Case Report Dermatopathology Report Case: [id number] Authorizing Provider: Macario Ignacio MD Collected: 01/31/2023 03:33 AM Ordering Location: [facility] Received: 02/04/2023 12:57 PM Pathologist: Masha Cervantes MD Specimens: A) - Skin, rght lproximal posterior arm B) - Skin, posterior scalp 5:10 PM [facility] Final Diagnosis Specimen A. 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 Basal Cell Carcinoma vs. Melanoma B: Neoplasm of Uncertain Behavior vs. Melanoma 5:10 PM [facility] Gross Description Specimen A: Received [...] 11x7x1 mm. Jar 0. 3 5:10 PM [facility] Microscopic Description Specimen A. SKIN, [...] margin of the specimen. 3 5:10 PM [facility] Disclaimer An external and internal positive and negative controls are appropriate for the histochemical, immunohistochemical and immunofluorescence stain(s) in this case (if any), except where stated explicitly. The performance characteristics of the stain(s) cited in this report were developed and its performance characteristic determined by the Dermatopathology Laboratory at [facility], directed by Dr. Justa Vasquez. These tests need not be, and therefore are not, approved by the [place] Food and Drug Administration. The tests are used for clinical purposes. Billing Codes Specimen Charges Stain Charges 87105 44833 1 1 74207 69859 1 1 3 5:10 PM [facility] Embedded Images 3 5:10 PM [facility] Synoptic Report MELANOMA OF [...] Gracie Cervantes who agrees. 3 5:10 PM [facility] Pathology/Cytology TISSUE SPECIMEN FROM SKIN / Unknown 01/31/2023 3:33 AM TIE BINDER 02/04/2023 12:57 PM TIE BINDER Miscellaneous samples (specimen) TISSUE SPECIMEN FROM SKIN / Unknown 01/31/2023 3:33 AM TIE BINDER 02/04/2023 12:57 PM TIE BINDER Macario Ignacio MD LAB - PATHOLOGY/CYTO [facility]Y [facility] DERMATOPATHOLOGY LABORATORY [facility] - Department of Dermatology [address], [address] [phone] documented in this encounter Visit Diagnoses Diagnosis Neoplasm of uncertain behavior of skin documented in this encounter Care Teams Pet House Sitter Relationship Specialty [place] [id number] [place] [phone] PCP - General Internal Medicine 02/08/23 Macario Ignacio MD [facility] [address] [place] [phone] Referring Physician Dermatology 02/08/23 documented as of this encounter
--- OUTSIDE RECORDS SUMMARY | 2024-04-23 02:44 | XMS_ITS | Clinical Summary ---
Author Organization [facility] Address [address] [place] [address] Care Team Providers Care Nylon Operator Name Role Phone Nicky Jimenez MD Primary Care Provider [phone] Macario Ignacio MD Unavailable [phone] Source Comments [facility],non-owned Affiliates and Associated Physician Practices is amultiple site organization consisting of ambulatory clinics and hospital sitesin [place], [place], [place] and [place]. This disclosure is being madepursuant to the Care Everywhere program and may not contain all information available regarding this patient. Last updated 17.[facility] Data Maid Allergies Active Allergy Reactions Criticality Noted Date Comments Hmg-Coa-R Inhibitors Dizziness,Psychiatric Medium /03/2023 Medications * Be aware that medications may not be up to date on this document. Alwaysverify current medications with the patient. Medication Sig Dispensed Refills Start Date End Date Status [facility] Active ascorbic acid (Vitamin C) 250 [...] [facility] [address] [place] [address] Kevin Hirsch MD Malignant melanoma [...] Sex Assigned at Male 02/11/2023 2:10 PM BULK COOLERS INSTALLER Gender Identity Male 02/11/2023 2:10 PM BULK COOLERS INSTALLER Sexual Orientation Straight 02/11/2023 2: 10 PM BULK COOLERS INSTALLER Last Filed Vital Signs Vital Sign Reading [...] COMPREHENSIVE METABOLIC PANEL Routine 02/11/2023 3:40 PM BULK COOLERS INSTALLER Melanoma of right upper arm (HCC) Melanoma of scalp (HCC) from Last 3 Months or Most Recently Relevant to Health Maintenance Results * COMPREHENSIVE METABOLIC PANEL (02/11/2023 3:40 PM BULK COOLERS INSTALLER) BUN 11 7 - 26 mg/dL 02/11/2023 5:03 PM [facility] Creatinine 0.83 0.71 - 1.16 mg/dL 02/11/2023 5:03 PM [facility] Sodium 139 136 - 145 mmol/L 02/11/2023 5:03 PM [facility] Potassium 4.2 3.5 - 4.5 mmol/L 02/11/2023 5:03 PM [facility] Chloride 107 98 - 107 mmol/L 02/11/2023 5:03 PM [facility] CO2 25 22 - 29 mmol/L 02/11/2023 5:03 PM [facility] Glucose 87 70 - 115 mg/dL 02/11/2023 5:03 PM [facility] Calcium 9.3 8.4 - 10.2 mg/dL 02/11/2023 5:03 PM [facility] Protein Total 7.2 6.0 - 8.3 g/dL 02/11/2023 5:03 PM [facility] Albumin 4.0 3.4 - 5.0 g/dL 02/11/2023 5:03 PM [facility] Bilirubin Total 0.6 0.2 - 1.2 mg/dL 02/11/2023 5:03 PM [facility] Alkaline Phosphatase 62 40 - 150 U/L 02/11/2023 5:03 PM [facility] ALT 27 5 - 55 U/L 02/11/2023 5:03 PM [facility] AST 20 5 - 34 U/L 02/11/2023 5:03 PM [facility] Anion Gap 7 6 - 16 02/11/2023 5:03 PM [facility] BUN/Creatinine Ratio 13 7 - 23 02/11/2023 5:03 PM [facility] Osmolality Calculated 287 275 - 295 mOsm/kg 02/11/2023 5:03 PM [facility] Albumin/Globulin Ratio 1.3 1.1 - 2.3 02/11/2023 5:03 PM [facility] eGFR by CKD-EPI >90 >=90 mL/min/1.7 3 m2 02/11/2023 5:03 PM [facility] Blood BLOOD SPECIMEN / Unknown Lab Venipuncture / Unknown 02/11/2023 3:40 PM BULK COOLERS INSTALLER 02/11/2023 4:33 PM [facility] Kevin Hirsch MD LAB - CHEMISTRY LIBAN AREVALO [facility] Organization Address City/State/ZIP Co de Phone Number [facility] [address] [place] [address], [facility] [phone] from Last 3 Months or Most Recently Relevant to Health Maintenance Care Teams Nylon Operator Relationship Specialty [place] [address] [place] [address] PCP - General Internal Medicine 02/08/23 Macario Ignacio MD [facility] [address] [place] [phone] Referring Physician Dermatology 02/08/23
--- OUTSIDE RECORDS SUMMARY | 2024-04-23 02:44 | XMS_ITS | Clinical Summary ---
Author Organization [facility] Address [address] [place] [address] Care Team Providers Care It Operations Analyst Name Role Phone Khalif Ortega MD Unavailable [phone] Lam Torres MD Primary Care Provider [phone] Carly Corea Unavailable [phone] Nette Durham MD Unavailable [phone] Jesus Browne MD Unavailable [phone] Rory Gooden MD Unavailable [phone] Alec Sparks MD Unavailable [phone] Macario Ignacio MD Unavailable [phone] Allergies Active Allergy Reactions Criticality Noted Date Comments Clwlgpe-Cvi-Siq Reductase Inhibitors Dizziness,Mental status changes Medium 05/28/2023 [...] 03/17/2024 Assessment & Plan (03/17/2024 1:47 PM OUTCOMES ANALYST): addendum: reviewed labs, xr, ekg. he has [...] Epidural catheter with PAIN management following Dilaudid CHOPPER GUN OPERATOR Planning to keep chandler until epidural discontinued. Ventral hernia 11/17/2019 Overview (11/17/2019): Added automatically from request for surgery [id number] Assessment & Plan (12/07/2019 1:23 PM CDT): 12/01 GVB OR Repair of open ventral hernia with bilateral posterior component separation with myofascial cutaneous release with synthetic mesh placed in the retrorectal space, inferior sternal reconstruction. RLQ drain subq LLQ drain above mesh -NPO, NG fell out post op. ARBF -Epidural/CHOPPER GUN OPERATOR,. Chandler until epidural removed. -[facility] dr[facility] [...] (10/28/2019): Added automatically from request for surgery [id number] Hyperlipidemia 06/03/2019 Assessment & Plan (07/14/2020 9:55 [...] therapy. Assessment & Plan (01/13/2020 4:46 PM OUTCOMES ANALYST): We will repeat lipid panel today, since [...] weight. Assessment & Plan (01/13/2020 4:47 PM OUTCOMES ANALYST): He has lost 30 pounds since our [...] Hypertension Assessment & Plan (01/29/2024 4:34 PM OUTCOMES ANALYST): BP elevated in office today, pt notes it is always high in office and is normal range at home. Continues Diltiazem 240 mg daily. Assessment & Plan (07/14/2020 9:55 AM CDT): Home BP has been adequately controlled, <140/90. He will continue on diltiazem and HCTZ and let me know if his home readings are consistently higher. Assessment & Plan (01/13/2020 4:47 PM OUTCOMES ANALYST): His home BP has been well controlled [...] Department Care Team Description 04/20/2024 2:30 PM OUTCOMES ANALYST Office Visit [facility] Medical Office Building [address] [place] [id number] Aneta Rodriguez PA Grade II internal hemorrhoids (Primary Dx); Thrombosed hemorrhoids 04/13/2024 Telephone [facility] Primary Care at [address] [address] Lam Torres MD Medical Records Request 04/08/2024 12:30 PM OUTCOMES ANALYST Telemedicine [facility] [address] [place] [address] 6th [address] [place] [address] González Almaraz MD KOBE (obstructive sleep apnea) (Primary Dx); BMI 32.0-32.9,adult 03/17/2024 Telephone [facility] Primary Care at [address] [address] Lam Torres MD PA for Nexletol 03/16/2024 11:30 AM OUTCOMES ANALYST Ancillary Procedure [facility] Imaging at [address] [address] 03/16/2024 10:52 AM OUTCOMES ANALYST - 03/16/2024 11:59 PM OUTCOMES ANALYST Hospital Encounter [address] [address] Primary hypertension; Mixed hyperlipidemia Discharge Disposition: Discharge to home or self care 03/16/2024 10:45 AM OUTCOMES ANALYST Lab [facility] Outpatient Lab at [address] [address] Hyperlipidemia (Primary Dx); Hypertension 03/16/2024 10:15 AM OUTCOMES ANALYST Office Visit [facility] Primary Care at [address] [address] Lam Torres MD Mixed hyperlipidemia (Primary Dx); Primary hypertension; Melanoma of right upper arm (HCC); Preoperative evaluation to rule out surgical contraindication 03/16/2024 Orders Only [facility] Primary Care at [address] [address] Lam Torres MD 02/27/2024 4:30 PM OUTCOMES ANALYST Procedure visit [facility] [address], [address] [place] [address] Paige Rivera Au.D. Sensory hearing loss, bilateral (Primary Dx) 02/21/2024 Telephone [facility] [address], [address] [place] [address] Dorothy Leon 02/12/2024 11:00 AM OUTCOMES ANALYST Procedure visit [facility] [address], [address] [place] [address] Yoko Sim CCC-Solitario Sensorineural hearing loss (SNHL) of both ears (Primary Dx); Sensorineural hearing loss, bilateral 02/05/2024 Orders Only [facility] [address] [facility] 6th [address] [place] [address] González Almaraz MD KOBE (obstructive sleep apnea) (Primary Dx) 02/05/2024 Telephone [facility] [address] [facility] [address] [facility] 6th [address] [place] [address] Lexi Nicole RN DME order 02/04/2024 Orders Only [facility] Primary Care at [address] [address] Mya Chris NP Thrombosed hemorrhoids (Primary Dx) 01/30/2024 Telephone [facility] [address] 6th [address] [place] [address] Yanet Gonzales Jannet, CHEMISTRY FACULTY MEMBER 01/29/2024 3:00 PM OUTCOMES ANALYST Office Visit [facility] Primary Care at [address] [address] Mya Chris NP Thrombosed hemorrhoids (Primary Dx); Primary hypertension 01/28/2024 10:00 AM OUTCOMES ANALYST Procedure visit [facility] [address] [place] [address] 6th [address] [place] [address] KOBE (obstructive sleep apnea) (Primary Dx) from [...] EAR SURGERY 02/26/2016 - 02/24/2017 Left OCR-Dr. Otrega, bone recontruction 2/2 trauma INGUINAL HERNIA REPAIR 1980s COLONOSCOPY 02/25/2019 - 02/25/2020 VASECTOMY MELANOMA RESECTION 02/25/2022 - 02/24/2023 HERNIA REPAIR ventral Medical History Medical History Date Comments Allergic rhinitis Hypertension Umbilical hernia Sleep apnea Ventral hernia YAVAPAI-APACHE (hard of hearing) Cancer (CMS/HCC) (HCC) Melanomas Mixed conductive and sensori neural hearing loss Cochlear Implant and Hearing Aid Cochlear implant in place Family History Medical History Relation Name Comments Diabetes type I Brother Steven Mcdaniel passed from diabetic coma Lung cancer Father Gabriel Alaina Mcdaniel metastatic No Known Problems Maternal Grandfather No Known Problems Maternal Grandmother Hearing loss Mother Solange Mcdaniel Heart attack Mother Solange Mcdaniel hx of CABG Hyperlipidemia Mother Solange Mcdaniel Stroke Mother Solange Mcdaniel multiple TIAs, CVA x 1 No Known Problems Paternal Grandfather No Known Problems Paternal Grandmother Hyperlipidemia Sister Rashmi Dotson Hypertension Sister Rashmi Dotson Anesthesia problems Neg Hx Relation Name Status Comments Brother Steven Mcdaniel Father Gabriel Mcdaniel Maternal Grandfather Maternal Grandmother Mother Solange Mcdaniel Paternal Grandfather Paternal Grandmother Sister Rashmi Dotson [...] on file Legal Sex Male 8:02 AM OUTCOMES ANALYST Gender Identity Male 12/16/2020 9:34 AM CDT Sexual Orientation Straight 10/26/2019 10 :23 AM CDT 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 Not on file Not on file Not on file Obstetrics History Last Filed Vital Signs Vital Sign Reading Time Taken Comments Blood Pressure 175/107 04/20/2024 1:57 PM OUTCOMES ANALYST Pulse 72 04/20/2024 1:57 PM OUTCOMES ANALYST Temperature 36.8 C (98.2 F) 04/20/2024 1:57 PM OUTCOMES ANALYST Respiratory Rate 16 03/16/2024 10:14 AM OUTCOMES ANALYST Oxygen Saturation 96% 04/20/2024 1:57 PM OUTCOMES ANALYST Inhaled Oxygen Concentration - - Weight 106.1 kg (234 lb) 04/20/2024 1:57 PM OUTCOMES ANALYST Height 180.3 cm (5' 11 ) 04/20/2024 1:57 PM OUTCOMES ANALYST Body Mass Index 32.64 04/20/2024 1:57 PM OUTCOMES ANALYST Plan of Treatment Health Maintenance Due Date [...] Discontinued 05/14/2023 Medical Devices Implanted Type Area Building Energy Consultant Device Identifier Shelf Expiration Date Model / Serial / Lot [employer]/C R Bard [id number] Monofilament Soft Lightweight Low Profile Square - [id number] Implanted:Qty: 1 on 12/02/2019 by Jesus Browne MD at [facility] Mesh N/A: Abdomen [employer]/C R Bard [id number] 01/23/2024 [id number] / / [id number] Nucleus Ci 632 Profile Plus Cochlear Implant-09/23/19 21 Implanted:09/22 by Efra Bajwa MD (Quantity not on file) Ear Procedures Procedure Name Priority Date/Time Associated Diagnosis Comments XR CHEST PA LATERAL 2 VIEWS Routine 03/16/2024 10:59 AM OUTCOMES ANALYST Preoperative evaluation to rule out surgical contraindication EGFR Routine 03/16/2024 10:52 AM OUTCOMES ANALYST Primary hypertension DIFFERENTIAL AUTO Routine 03/16/2024 10: 52 AM OUTCOMES ANALYST Primary hypertension LIPID PANEL Routine 03/16/2024 10:52 AM OUTCOMES ANALYST Mixed hyperlipidemia COMPREHENSIVE METABOLIC PANEL Routine 03/16/2024 10:52 AM OUTCOMES ANALYST Primary hypertension CBC WITH AUTO DIFFERENTIAL Routine 03/16/2024 10:52 AM OUTCOMES ANALYST Primary hypertension ECG 12-LEAD Routine 03/16/2024 10:45 AM OUTCOMES ANALYST Preoperative evaluation to rule out surgical contraindication PORTABLE/HOME SLEEP STUDY Routine 01/28/2024 10:00 PM OUTCOMES ANALYST KOBE (obstructive sleep apnea) HEPATITIS C ANTIBODY Routine 05/14/2023 10:33 AM CDT Screening for hepatitis C declined PSA SCREEN Routine 05/14/2023 10:33 AM CDT Screening PSA (prostate specific antigen) COLONOSCOPY 11/12/2019 8:06 AM CDT from Last 3 Months or Most Recently Relevant to Health Maintenance Results * XR Chest Pa Lateral 2 Views (03/16/2024 10:59 AM OUTCOMES ANALYST) Anatomical Region Laterality Modality Body, Chest N/A Digital Radiogra phy 03/17/2024 11:0 2 AM OUTCOMES ANALYST Narrative 03/17/2024 11:05 AM OUTCOMES ANALYST EXAM DESCRIPTION: XR CHEST PA LATERAL 2 [...] signed by Boby MARTINEZ T: Report ID: [id number] Reading Location: [id number] Procedure Note Boby Perla MD - 03/17/2024 [...] signed by Boby MARTINEZ T: Report ID: [id number] Reading Location: [place] [address] [place] Lam Torres MD IMG XR PROCEDURES Final Res ult * eGFR (03/16/2024 10:52 AM OUTCOMES ANALYST) eGFR 82 >=60 mL/min/1. 73 m2 Comment: [...] reviewed 2020. Blood 03/16/2024 10:5 2 AM OUTCOMES ANALYST 03/16/2024 4:02 PM OUTCOMES ANALYST us Lam Torres MD LAB BLOOD ORDERABLES Final Result [facility] [address] Department [place] [address] * Differential, auto (03/16/2024 10:52 AM OUTCOMES ANALYST) Neutrophil abs 3.0 1.5 - 6.5 K/cumm Imm gran abs 0.0 0.0 - 0.1 K/cumm [facility] Lymphocyte abs 2.5 0.8 - 3.3 K/cumm [facility] Monocyte abs 0.5 0.2 - 0.8 K/cumm [facility] Eosinophil abs 0.1 0.0 - 0.5 K/cumm [facility] Basophil abs 0.0 0.0 - 0.1 K/cumm [facility] Neutrophil pct 48.5 % [facility] Comment: Interpretive Data Percent cell count reference ranges are not reported, since discordance with absolute values may lead to misinterpretation of CBC data. Current Interpretive Data was last revised on 2017. Imm gran pct 0.5 % [facility] Comment: Interpretive Data Percent cell count reference ranges are not reported, since discordance with absolute values may lead to misinterpretation of CBC data. Current Interpretive Data was last revised on 2017. Lymphocyte pct 40.4 % [facility] Comment: Interpretive Data Percent cell count reference ranges are not reported, since discordance with absolute values may lead to misinterpretation of CBC data. Current Interpretive Data was last revised on 2017. Monocyte pct 8.3 % [facility] Comment: Interpretive Data Percent cell count reference ranges are not reported, since discordance with absolute values may lead to misinterpretation of CBC data. Current Interpretive Data was last revised on 2017. Eosinophil pct 1.6 % [facility] Comment: Interpretive Data Percent cell count reference ranges are not reported, since discordance with absolute values may lead to misinterpretation of CBC data. Current Interpretive Data was last revised on 2017. Basophil pct 0.7 % [facility] Comment: Interpretive Data Percent cell count reference ranges are not reported, since discordance with absolute values may lead to misinterpretation of CBC data. Current Interpretive Data was last revised on 2017. Blood 03/16/2024 10:5 2 AM OUTCOMES ANALYST 03/16/2024 3:31 PM OUTCOMES ANALYST Lam Torres MD LAB BLOOD ORDERABLES Final Result [facility] [address] Department of Laboratories [place], [place] [id number] * (ABNORMAL) CBC with auto differential (03/16/2024 10:52 AM OUTCOMES ANALYST) Pathologist [facility] WBC 6.1 3.8 - 9.9 K/cumm Hgb 14.5 13.0 - 17.5 g/dL [facility] Hct 45.9 38.9 - 50.3 % [facility] Plt 255 150 - 400 K/cumm [facility] MPV 10.7 9.1 - 12.[address] [facility] RBC 4.77 4.30 - 5.80 M/cumm [facility] MCV 96.2 81.3 - 96.[address] [facility] MCH 30.4 27.1 - 33.[address] [facility] MCHC 31.6(L) 32.3 - 35.7 g/dL [facility] RDW CV 12.5 11.1 - 14.9 % [facility] RDW SD 44.8 35.7 - 48.[address] [facility] NRBC abs 0.00 0.00 - 0.01 K/cumm [facility] Blood 03/16/2024 10:5 2 AM OUTCOMES ANALYST 03/16/2024 3:31 PM OUTCOMES ANALYST Lam Torres MD LAB BLOOD ORDERABLES Final Result [facility] [address] [facility] Department [place] [address] * (ABNORMAL) Lipid panel (03/16/2024 10:52 AM OUTCOMES ANALYST) Cholesterol 288(H) 30 - 199 mg/dL Comment: [...] on 2017. Triglycerides 139 <=149 mg/dL [facility] Comment: Interpretive Data Ages [...] on 2023. Non-HDL Cholesterol 239 mg/dL [facility] Comment: Interpretive Data Ages [...] last revised on 2017. Chol/HDL ratio 6 [facility] Blood 03/16/2024 10:5 2 AM OUTCOMES ANALYST 03/16/2024 3:31 PM OUTCOMES ANALYST us Lam Torres MD LAB BLOOD ORDERABLES Final Result [facility] [address] Department [place] [address] * Comprehensive metabolic panel (03/16/2024 10:52 AM OUTCOMES ANALYST) Sodium 139 135 - 145 mmol/L Potassium, [...] [facility] Blood 03/16/2024 10:5 2 AM OUTCOMES ANALYST 03/16/2024 3:31 PM OUTCOMES ANALYST us Lam Torres MD LAB BLOOD ORDERABLES Final Result Performing Organization Address City/State/ZIP Co va Phone Number [facility] [address] Department [place] [address] * ECG 12-LEAD (03/16/2024 10:45 AM OUTCOMES ANALYST) Narrative Lam Torres MD - 03/16/2024 10:45 AM OUTCOMES ANALYST Lam Torres MD 03/16/2024 8:15 PM ECG [...] * PORTABLE/HOME SLEEP STUDY (01/28/2024 10:00 PM OUTCOMES ANALYST) Narrative González Almaraz MD - 01/28/2024 10:00 PM OUTCOMES ANALYST González Almaraz MD 01/30/2024 2:14 PM Portable/Home [...] ORDERABLES Final Result Performing Organization Address City/State/ZIP [facility] Phone Number [facility] [address] [place] [address] * Hepatitis C antibody Blood [...] GENERAL ORDERABLES Final Result Performing Organization Address City/State/[facility] Phone Number [facility] [address] [facility] Department of Laboratories [place], [place] [id number] * COLONOSCOPY (11/12/2019 8:06 AM CDT) Anatomical Region Laterality Modality Other Narrative Procedure Note Casa Mccracken MD - 11/12/2019 8:06 AM CDT ENDOSCOPY LAB Patient Name: Osiel Garcia Procedure Date: 11/12/2019 8:06 AM Date of : 1955 Admit Type: Outpatient Age: 64 Gender: Male Attending MD: Casa Mccracken M.D. Room: [facility] ENDOSCOPY ROOM 02 Note Status: Finalized [...] Thescope was passed under direct vision. The [id number] introduced through the anus and advanced to the cecum, identified by appendiceal orifice and ileocecal valve.The colonoscopy was performed without difficulty. Thepatient tolerated the procedure well. The quality of the bowel preparation was evaluated using the BBPS (Walnut Bowel Preparation Scale) with scores of: Right [...] Recently Relevant to Health Maintenance Insurance MEDICARE [facility] Address: [address] [address] [employer] Member Subscriber Plan / Payer (Ef fective 2016-Present) Name:Osiel Garcia Relation to Subscriber:Self Name:Osiel Garcia Payer ID:[id number] Group ID:[id number] Type:COMMERCIAL Address: [address] [place] [address] MEDICARE [employer] Member Subscriber Plan / Payer (Ef fective 2019-Present) Name:Osiel Garcia Relation to Subscriber:Self Name:Osiel Garcia Payer ID:[id number] Group ID:[id number] Type:COMMERCIAL Address: [address] [place] [id number] MEDICARE [employer] Member Subscriber Plan / Payer (Ef fective 2019-Present) Name:Osiel Garcia Relation to Subscriber:Self Name:Osiel Garcia Payer ID:[id number] Group ID:[id number] Type:COMMERCIAL Address: [address] [place] [id number] Advance Directives For more information, please contact: [phone] * Full Code (Latest Code Status on File) Date Activated Date Inactivated Comments 12/02/2019 7:19 PM 12/08/2019 2:57 PM * Full Code Date Activated Date Inactivated Comments 11/12/2019 7:21 AM 11/12/2019 1:36 PM Care Teams It Operations Analyst Relationship Specialty Start Date End Date Lam Torres MD [address] [place], [place] [id number] PCP - General Family Medicine 05/14/23 Khalif Ortega MD [address] [place] [address] Referring Physician Otolaryngology 04/15/18 Carly Corea PA [address] [place], [place] [id number] Physician Dough Molder 05/14/23 Nette Durham MD [address] [place] [address] Consulting Physician Cardiology 05/14/23 Jesus Browne MD [address] [facility] [phone] [place] [address] Surgeon Surgical Critical Care 05/14/23 Rory Gooden MD [address] [place], [place] [id number] Consulting Physician Urology 05/14/23 Alec Sparks MD [address] [place] [address] Referring Physician Orthopedic Surgery 03/16/24 Macario Ignacio MD [address] [place], [place] [address] Dermatology 03/16/24
--- OUTSIDE RECORDS SUMMARY | 2024-04-23 02:44 | XMS_ITS | Encounter Summary ---
Author Organization [facility] Address [facility] [place] [address] Care Team Providers Care Philosophy Instructor Name Role Phone Nicky Jimenez MD Primary Care Provider None, Provider Primary Care Provider Unavaila ble Encounter Details Date Type Department Care Team (Late st Contact Info) Description 12/10/2019 [employer] Message Enc [facility] Medical Group Family & Internal Medicine [facility] [address] [place] [address] Yvette Carlos, LINDA [address] [place] [address] RE: Follow Up/Update Social History [...] documented as of this encounter Care Teams Philosophy Instructor Relationship Specialty Start Date End Date Nicky Jimenez MD PCP - General 08/03/16 01/21/23 None, Provider, PCP - General UNKNOWN PHYSICIAN SPECIALTY 01/22/23 documented as of this encounter
--- OUTSIDE RECORDS SUMMARY | 2024-04-23 02:44 | XMS_ITS | Encounter Summary ---
Author Organization [facility] Address [facility] [place] [address] Care Team Providers Care Hazardous Materials Waste Technician Name Role Phone Nicky Jimenez MD Primary Care Provider None, Provider Primary Care Provider Unavaila ble Encounter Details Date Type Department Care Team (Late st Contact Info) Description 12/13/2019 vIPtela Message Enc [facility] Medical Group Family & Internal Medicine [facility] [address] [place] [address] Yvette Carlos, LINDA [address] [place] [address] RE: Question Social History Tobacco [...] documented as of this encounter Care Teams Hazardous Materials Waste Technician Relationship Specialty Start Date End Date Nicky Jimenez MD PCP - General 08/03/16 01/21/23 None, Provider, PCP - General UNKNOWN PHYSICIAN SPECIALTY 01/22/23 documented as of this encounter
--- OUTSIDE RECORDS SUMMARY | 2024-04-23 02:44 | XMS_ITS | Encounter Summary ---
Author Organization [facility] Address [facility] [place] [address] Care Team Providers Care Repair Manager Name Role Phone Nicky Jimenez MD Primary Care Provider None, Provider Primary Care Provider Unavaila ble Encounter Details Date Type Department Care Team (Late st Contact Info) Description 04/27/2019 [employer] Message Enc [facility] Medical Group Family & Internal Medicine [facility] [address] [place] [address] Yvette Carlos, LINDA [address] [place] [address] RE: Referral Request Social History [...] documented as of this encounter Care Teams Repair Manager Relationship Specialty Start Date End Date Nicky Jimenez MD PCP - General 08/03/16 01/21/23 None, Provider, PCP - General UNKNOWN PHYSICIAN SPECIALTY 01/22/23 documented as of this encounter
--- OUTSIDE RECORDS SUMMARY | 2024-04-23 02:44 | XMS_ITS | Encounter Summary ---
Author Organization [facility] Address [facility] [place] [address] Care Team Providers Care Coke Loader Name Role Phone Nicky Jimenez MD Primary Care Provider None, Provider MD Primary Care Provider Unavaila ble Encounter Details Date Type Department Care Team (Late st Contact Info) Description 06/02/2020 Prep for Procedure [facility] [address] [place], [place] [id number] Gustavo Brunner MD [address] [place] [address] Social History Tobacco Use Types Packs/Day [...] DETECTED NOT DETECTED 06/06/2020 12:45 PM CDT [facility] Comment: A Not Detected (negative) test result [...] providers and patients using the following websites: https://www.[employer]/home/Covid-19/HCP/Quest[employer]/fact- sheet.html https://www.[employer]/home/Covid-19/Patients/ Quest[employer]/fact-sheet.html This test has been authorized by the FDA under an Emergency Use Authorization (EUA) for use by authorized laboratories. Due to the current public health emergency, [employer] is receiving a high volume of samples [...] about COVID-19 can be found at the [employer] website: www.[employer]/Covid19. Test performed at [facility] [address] [place] [address] Director: CHUY TEJEDA DO,MPH FIRST TEST UNKNOWN 06/05/2020 7:50 AM CDT [facility] EMPLOYED IN HEALTHCARE NO 06/05/2020 7:50 AM CDT [facility] SYMPTOMATIC DEFINED BY CDC UNKNOWN 06/05/2020 7:50 AM CDT [facility] DATE OF SYMPTOM ONSET UNKNOWN 06/05/2020 3:58 PM CDT [facility] HOSPITALIZATION STATUS NO 06/05/2020 7:50 AM CDT [facility] PATIENT IN ICU NO 06/05/2020 7:50 AM CDT [facility] RESIDENT OF [facility] NO 06/05/2020 7:50 AM CDT [facility] UNKNOWN 06/05/2020 3:58 PM CDT [facility] PATIENT'S RACE WHITE OR 06/05/2020 7:50 AM CDT [facility] ETHNICITY NONHISPANIC 06/05/2020 7:50 AM CDT [facility] SOURCE (QST) NASOPHARYNGEAL SWAB 06/05/2020 7:50 AM CDT [facility] NASOPHARYNGEAL SWAB / Unknown 06/05/2020 7:50 AM CDT us Gustavo Brunner MD MICROBIOLOGY - GENERAL ORDER JAIDA Final Result [facility] [address] [place] [address], [place] [phone] [facility] [address] [place] [address], [place] * ECG 12-Lead (06/02/2020 2:09 PM CDT) 06/02/2020 2:09 PM CDT Narrative [facility] ([facility] RAD - 06/02/2020 8:[address] [facility] Test Date: 2020-06-02 Pat Name: OSIEL LONDONO Department: Room: Gender: Male Dye Automation Operator: : 1955 Requested By: GUSTAVO BRUNNER Order Number: [id number] Reading : Cody Jamil Measurements Intervals Tribune Rate: 58 P: 70 OR: 175 QRS: 18 QRSD: 104 T: 30 QT: 399 QTc: 394 Interpretive Statements SINUS BRADYCARDIA No previous ECG available for comparison Procedure Note Cody Jamil MD - 06/02/2020 [facility] Test Date: 2020-06-02 Pat Name: OSIEL LONDONO Department: Room: Gender: Male Dye Automation Operator: : 1955 Requested By: GUSTAVO BRUNNER Order Number: [id number] Reading MD: Cody Jamil Measurements Intervals Tribune Rate: 58 P: 70 OR: 175 QRS: 18 QRSD: 104 T: 30 QT: 399 QTc: 394 Interpretive Statements SINUS BRADYCARDIA No previous ECG available for comparison us Gustavo Brunner MD ECG ORDERABLES Final Result Performing Organization Address City/State/[facility] Co de Phone Number [facility] documented in this encounter Visit Diagnoses Diagnosis Preop testing- Primary Preoperative examination, unspecified Preop testing Preoperative examination, unspecified documented in this encounter Additional Health Concerns Infection Onset Date Last Indicated Resolved Time COVID-19 Rule Out 06/05/2020 06/05/2020 06/06/2020 12:45 PM CDT documented as of this encounter Care Teams Coke Loader Relationship Specialty Start Date End Date Nicky Jimenez MD PCP - General 08/03/16 01/21/23 None, Provider, PCP - General UNKNOWN PHYSICIAN SPECIALTY 01/22/23 documented as of this encounter
--- OUTSIDE RECORDS SUMMARY | 2024-04-23 02:44 | XMS_ITS | Encounter Summary ---
Author Organization [facility] Address [facility] [place] [address] Care Team Providers Care Veneer Clipper Name Role Phone Nicky Jimenez MD Primary Care Provider None, Provider Primary Care Provider Unavaila ble Encounter Details Date Type Department Care Team (Late st Contact Info) Description 07/20/2019 Explore.To Yellow Pages Message Enc [facility] Medical Group Family & Internal Medicine [facility] [address] [place] [address] Yvette Carlos, LINDA [address] [place] [address] Follow Up/Update Social History Tobacco [...] documented as of this encounter Care Teams Veneer Clipper Relationship Specialty Start Date End Date Nicky Jimenez MD PCP - General 08/03/16 01/21/23 None, Provider, PCP - General UNKNOWN PHYSICIAN SPECIALTY 01/22/23 documented as of this encounter
--- OUTSIDE RECORDS SUMMARY | 2024-04-23 02:44 | XMS_ITS | Referral Summary ---
Author Organization [facility] Address [address] [place] [address] Care Team Providers Care Crossbar Switch Adjuster Name Role Phone Nicky Jimenez MD Primary Care Provider [phone] Macario Ignacio MD Unavailable [phone] Source Comments [facility],non-owned Affiliates and Associated Physician Practices is amultiple site organization consisting of ambulatory clinics and hospital sitesin [place] and [place]. This disclosure is being madepursuant to the Care Everywhere program and may not contain all information available regarding this patient. 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 Alwaysverify current medications with the patient. Medication Sig Dispensed Refills Start Date End Date Status [facility] Active ascorbic acid (Vitamin C) 250 [...] Sex Assigned at Male 02/11/2023 2:10 PM PUBLIC WORKS LABORER Gender Identity Male 02/11/2023 2:10 PM PUBLIC WORKS LABORER Sexual Orientation Straight 02/11/2023 2: 10 PM PUBLIC WORKS LABORER Last Filed Vital Signs Vital Sign Reading [...] COMPREHENSIVE METABOLIC PANEL Routine 02/11/2023 3:40 PM PUBLIC WORKS LABORER Melanoma of right upper arm (HCC) Melanoma of scalp (HCC) from Last 3 Months or Most Recently Relevant to Health Maintenance Results * COMPREHENSIVE METABOLIC PANEL (02/11/2023 3:40 PM PUBLIC WORKS LABORER) BUN 11 7 - 26 mg/dL 02/11/2023 5:03 PM [facility] Creatinine 0.83 0.71 - 1.16 mg/dL 02/11/2023 5:03 PM [facility] Sodium 139 136 - 145 mmol/L 02/11/2023 5:03 PM [facility] Potassium 4.2 3.5 - 4.5 mmol/L 02/11/2023 5:03 PM [facility] Chloride 107 98 - 107 mmol/L 02/11/2023 5:03 PM [facility] CO2 25 22 - 29 [...] 3.4 - 5.0 g/dL 02/11/2023 5:03 PM [facility] Bilirubin Total 0.6 0.2 - 1.2 mg/dL [...] Lab Venipuncture / Unknown 02/11/2023 3:40 PM PUBLIC WORKS LABORER 02/11/2023 4:33 PM [facility] Kevin Hirsch MD LAB - CHEMISTRY LIBAN ARE[facility] Organization Address City/State/ZIP Co de Phone Number [facility] [address] [place] [address], [facility] [phone] from Last 3 Months or Most Recently Relevant to Health Maintenance Care Teams Crossbar Switch Adjuster Relationship Specialty [place] [address] [place], [place] [id number] PCP - General Internal Medicine 02/08/23 Macario Ignacio MD [facility] [address] [place] [address] Referring Physician Dermatology 02/08/23
--- OUTSIDE RECORDS SUMMARY | 2024-04-23 02:44 | XMS_ITS | Encounter Summary ---
Author Organization [facility] Address [facility] [place] [address] Care Team Providers Care Recruiting Internship Name Role Phone Nicky Jimenez MD Primary Care Provider [phone] None, Provider Primary Care Provider Unavaila ble Encounter Details Date Type Department Care Team (Late st Contact Info) Description 06/02/2019 [facility] Message Enc [facility] Medical Group Family & Internal Medicine [facility] [address] [place] [address] Yvette Carlos, LINDA [address] [place] [address] Follow Up/Update Social History Tobacco [...] documented as of this encounter Care Teams Recruiting Internship Relationship Specialty Start Date End Date Nicky Jimenez MD PCP - General 08/03/16 01/21/23 None, Provider, PCP - General UNKNOWN PHYSICIAN SPECIALTY 01/22/23 documented as of this encounter
--- OUTSIDE RECORDS SUMMARY | 2024-04-23 02:44 | XMS_ITS | Encounter Summary ---
Author Organization [facility] Address [address] [facility] [address] [place] [address] Phone Care Team Providers Care Yarn Polishing Machine Operator Name Role Phone Nicky Jimenez MD Primary Care Provider [phone] Khalif Ortega MD Unavailable [phone] Lam Torres MD Primary Care Provider Carly Corea Unavailable [phone] Nette Durham MD Unavailable [phone] Jesus Browne MD Unavailable + [phone] Rory Gooden MD Unavailable [phone] Alec Sparks MD Unavailable [phone] Macario Ignacio MD Unavailable [phone] Encounter Details Date Type Department Care Team (Latest Contact Info) Description 04/14/2019 Orders Only [facility] Scanning, Provider Social History Tobacco Use Types Packs/Day Years Used Date Smoking Tobacco: Never Sex and Gender Information Value Date Recorded Sex Assigned at Not on file Legal Sex Male 8:02 AM SERVICE ARCHITECT Gender Identity Male 12/16/2020 9:34 AM CDT [...] on filedocumented in this encounter Care Teams Yarn Polishing Machine Operator Relationship Specialty [place] [address] [address] [facility] [address] [place] [address] PCP - General Internal Medicine 12/18/17 05/13/23 Lam Torres MD [address] [place], [place] [id number] PCP - General Family Medicine 05/14/23 Khalif Ortega MD [address] [place] [address] Referring Physician Otolaryngology 04/15/18 Carly Corea PA [address] [place] [address] Physician Director Dental Services 05/14/23 Nette Durham MD [address] [place], [place] [address] Consulting Physician Cardiology 05/14/23 Jesus Browne MD [address] [facility] [phone] [place] [address] Surgeon Surgical Critical Care 05/14/23 Rory Gooden MD [address] [facility] [address] [place] [address] Consulting Physician Urology 05/14/23 Alec Sparks MD [address] [place] [address] Referring Physician Orthopedic Surgery 03/16/24 Macario Ignacio MD [address] [place] [address] [place] [address] Dermatology 03/16/24 documented as of this encounter
--- OUTSIDE RECORDS SUMMARY | 2024-04-23 02:44 | XMS_ITS | Encounter Summary ---
Author Organization [facility] Address [address] [place] [address] Care Team Providers Care Staffing Administrator Name Role Phone Khalif Ortega MD Unavailable [phone] Lam Torres MD Primary Care Provider [phone] Carly Corea Unavailable [phone] Nette Durham MD Unavailable [phone] Jesus Browne MD Unavailable + [phone] Rory Gooden MD Unavailable [phone] Alec Sparks MD Unavailable [phone] Macario Ignacio MD Unavailable [phone] Reason for Visit * Reason Onset Date Comments Medical Records Request 04/13/2024 Encounter Details Date Type Department Care Team (Late st Contact Info) Description 04/13/2024 Telephone [facility] Primary Care at [address] [address] Lam Torres MD [address] [place] [address] [address] [place] [address] Medical Records Request Social History [...] on file Legal Sex Male 8:02 AM TELEVISION SERVICE ENGINEER Gender Identity Male 12/16/2020 9:34 AM CDT Sexual Orientation Straight 10/26/2019 10 :23 AM CDT 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 VISION SERVICE ENGINEER * Telephone Encounter - Huma Barrera - [...] number to use for return of records: [phone] Additional Comments/Concerns: Patient surgery scheduled Apr 23 2024 Does the message need to be routed? Yes-Action Needed VISION SERVICE ENGINEER documented in this encounter Plan of Treatment Not on file documented as of this encounter Visit Diagnoses Not on filedocumented in this encounter Care Teams Staffing Administrator Relationship Specialty Start Date End Date Lam Torres MD [address] [place] [address] PCP - General Family Medicine 05/14/23 Khalif Ortega MD [address] [place] [address] Referring Physician Otolaryngology 04/15/18 Carly Corea PA [address] [place] [address] Physician Corporate Librarian 05/14/23 Nette Durham MD [address] [place] [address] Consulting Physician Cardiology 05/14/23 Jesus Browne MD [facility] [address] [facility] [phone] [place] [address] Surgeon Surgical Critical Care 05/14/23 Rory Gooden MD [address] [facility] [address] [place], [place] [address] Consulting Physician Urology 05/14/23 Alec Sparks MD [address] [place] [address] Referring Physician Orthopedic Surgery 03/16/24 Macario Ignacio MD [address] [place] [address] Dermatology 03/16/24 documented as of this encounter
--- OUTSIDE RECORDS SUMMARY | 2024-04-23 02:44 | XMS_ITS ---
Author Organization [facility] Address [address] [facility] [place] [address] Care Team Providers Care Fence Erector Supervisor Name Role Phone Khalif Ortega MD Unavailable [phone] Lam Torres MD Primary Care Provider [phone] Carly Corea Unavailable [phone] Nette Durham MD Unavailable [phone] Jesus Browne MD Unavailable + [phone] Rory Gooden MD Unavailable [phone] Alec Sparks MD Unavailable [phone] aMcario Ignacio MD Unavailable [phone] Active Problems Problem Noted Date Diagnosed Date Preoperative evaluation to larisa beebe out surgical contraindication 03/17/2024 Assessment & Plan (03/17/2024 1:47 PM SALES REPRESENTATIVE GRAPHIC ART): addendum: reviewed labs, xr, ekg. he has [...] Epidural catheter with PAIN management following Dilaudid COMPETITIVE INTELLIGENCE MANAGER Planning to keep chandler until epidural discontinued. Ventral hernia 11/17/2019 Overview (11/17/2019): Added automatically from request for surgery [id number] Assessment & Plan (12/07/2019 1:23 PM CDT): 12/01 [facility]VB OR Repair of open ventral hernia with bilateral posterior component separation with myofascial cutaneous release with synthetic mesh placed in the retrorectal space, inferior sternal reconstruction. RLQ drain subq LLQ drain above mesh -NPO, NG fell out post op. ARBF -Epidural/COMPETITIVE INTELLIGENCE MANAGER,. Chandler until epidural removed. -[facility] in [...] (10/28/2019): Added automatically from request for surgery [id number] Hyperlipidemia 06/03/2019 Assessment & Plan (07/14/2020 9:55 [...] therapy. Assessment & Plan (01/13/2020 4:46 PM SALES REPRESENTATIVE GRAPHIC ART): We will repeat lipid panel today, since [...] weight. Assessment & Plan (01/13/2020 4:47 PM SALES REPRESENTATIVE GRAPHIC ART): He has lost 30 pounds since our [...] Hypertension Assessment & Plan (01/29/2024 4:34 PM SALES REPRESENTATIVE GRAPHIC ART): BP elevated in office today, pt notes it is always high in office and is normal range at home. Continues Diltiazem 240 mg daily. Assessment & Plan (07/14/2020 9:55 AM CDT): Home BP has been adequately controlled, <140/90. He will continue on diltiazem and HCTZ and let me know if his home readings are consistently higher. Assessment & Plan (01/13/2020 4:47 PM SALES REPRESENTATIVE GRAPHIC ART): His home BP has been well controlled [...]
--- OUTSIDE RECORDS SUMMARY | 2024-04-23 02:44 | XMS_ITS | Encounter Summary ---
Author Organization [facility] Address [facility] [place] [address] Care Team Providers Care University Dean Name Role Phone Nicky Jimenez MD Primary Care Provider None, Provider Primary Care Provider Unavaila ble Encounter Details Date Type Department Care Team (Late st Contact Info) Description 11/03/2019 Tap[facility] Message Enc [facility] Medical Group Family & Internal Medicine [facility] [address] [place] [address] [place] [address] [place] [address] RE: Question Social History Tobacco [...] documented as of this encounter Care Teams University Dean Relationship Specialty Start Date End Date Nicky Jimenez MD PCP - General 08/03/16 01/21/23 None, Provider, PCP - General UNKNOWN PHYSICIAN SPECIALTY 01/22/23 documented as of this encounter
[2024-04-23] MEDS: KETOROLAC 15 MG/ML VIAL (*BKC) IV PUSH (10:30)
[2024-04-23] MEDS: VANCOMYCIN 1,500 MG/NS 500 ML BAG 250 MG IVPB (10:30)
[2024-04-23] MEDS: ACETAMINOPHEN 500 MG TABLET 1000 MG PO (10:30)
[2024-04-23] MEDS: LACTATED RINGERS 1,000 ML 30 ML IV CONT ×2 (11:00→14:56)
--- NOTE | 2024-04-23 11:44 | WPDHPUPDATE1 ---
History and Physical Update Update Date/Time: 04/23/24 11:44 History and Physical has been reviewed, including an updated exam of the patient. There are NO changes in the patient's condition. Risks, benefits, and alternatives have been discussed and questions answered. Patient agrees to proceed with procedure.
--- NOTE | 2024-04-23 12:11 | WPDANESEPPF ---
Anes - Initial Pre Proc Eval Procedure: Operation Date: 04/23/24 12:00 Proposed Procedures p Right Shoulder Arthroscopy, Mini Open Rotator Cuff Repair, Possible Biceps Tenodesis, Possible Arthroflex Allograft Augmentation, Proceed As Indicated - Alec Sparks MD Date/Time: 04/23/24 12:11 Surgeon: Alec Sparks MD Pre Op Diagnosis: right shoulder Rotator cuff tear Patient Data Age: 69 Gender: M Height: 1.8 m Weight: 102.97 kg Last Vital Signs Temp 36.5 C 04/23/24 10:30 Pulse 69 04/23/24 10:30 Resp 14 04/23/24 10:30 BP 160/88 H 04/23/24 10:30 Pulse Ox 99 04/23/24 10:30 O2 Del Method Room Air 04/23/24 10:30 Allergies Allergy/AdvReac Type Severity Reaction Status Date / Time Laoaqwu-CML-VfX Reductase AdvReac Intermediate Rash Verified 04/23/24 12:00 Inhibitor Home Medications ?Medication ?Instructions ?Recorded ?Confirmed ?Type diltiazem HCl 240 mg 240 mg PO DAILY 11/25/23 04/23/24 History capsule,extended release 24 hr, controlled CBD 5 mg PO PRN PAIN 01/08/24 04/13/24 History meloxicam 15 mg tablet 15 mg PO DAILY #30 tabs 01/08/24 04/23/24 Rx ascorbic acid (vitamin C) 1,000 mg 1 g PO DAILY 04/13/24 04/23/24 History tablet (C-1000) magnesium 500 mg tablet 15 mg PO DAILY 04/13/24 04/23/24 History psyllium husk 0.4 gram capsule 0.4 g PO DAILY 04/13/24 04/23/24 History (Metamucil) Patient hx anesthesia problems: none and other (slow to awaken) Family hx anesthesia problems: none Results Review: All pre-operative results and documents have been reviewed as part of the pre-operative evaluation. [facility] Past Medical History Medical History Skin cancer Ventral hernia Surgical History Surgical History History of cochlear implant Family History Family History Mother Cerebrovascular accident Other Diabetes mellitus Social History Social History Smoking status: Never smoker Second hand tobacco smoke exposure: Yes Alcohol intake: never Substance use: current Substance use type: marijuana Other substance usage details: CBD Last use: Pills for pain. 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 Informed Consent: The patient's anesthetic plan and its attendant risks and benefits were discussed with the patient/family/POA. Questions were solicited and answers provided to the satisfaction of the patient/family/POA.
[2024-04-23] MEDS: ceFAZolin 2 GM/D5W 50 ML 2 GM/50 ML BAG IVPB (12:27)
[2024-04-23] MEDS: ceFAZolin SODIUM 1 GM VIAL (13:21)
[2024-04-23] MEDS: ceFAZolin SODIUM 1 GM VIAL IV PUSH (14:24)
--- NOTE | 2024-04-23 14:38 | W.PM.PROC2 ---
Procedure Note - Detailed Date of Procedure 04/23/24 Pre-op Diagnosis right shoulder Rotator cuff tear Post-op Diagnosis Same (With diffuse labral degenerative tearing anterior superior labrum) Procedure Performed Arthroscopic limited debridement of labral tearing right shoulder, arthroscopic subacromial decompression and mini open rotator cuff repair right shoulder. Surgeon Alec Sparks MD Diagnostic Technologist Noel Anesthesia General Description of Procedure Patient was brought to the operating room and general anesthesia was administered. He was carefully placed in the beach chair position head secured neutral alignment. The right shoulder was prepped draped usual fashion. He received 2 g of Ancef and weight based vancomycin preoperatively. All the skin was covered with I have been except the superior shoulder. Standard arthroscopic portals were placed. The the articular cartilage in the glenohumeral joint looked normal except for a small area chondromalacia in the anterior equator of the glenoid. There was extensive labral degeneration. Through the anterior superior portal a 5 motorized shaver was used to debride the long strands of deteriorated torn labrum superiorly and anteriorly. Biceps anchor was stable. We retracted the long head of the biceps into the joint. There was some erythema of the long head down deep in the groove but no fraying and the medial diana of the long head of the biceps a pristine. The there was some articular side longitudinal maceration of the upper edge of the subscapularis but no detachment. The there was tearing of the supraspinatus and infraspinatus tendons articular side that was high-grade. The the The arthroscope was placed in the subacromial space. There was prominent fibrillation and thickening of the undersurface of the CA ligament and extensive sub acromial bursitis which was debrided. Anterior superior outflow portal was used. The ArthroCare Wand was used to ablate the coracoacromial ligament from the undersurface of the acromion. A minimal acromioplasty was performed removing only about 2 mm to make it smooth. His anterior acromion was somewhat thin and was type 2. There was no obvious defect of the rotator cuff viewed from the bursal surface but we could see that the bursal layer was thin and macerated. The remaining skin was covered with IO band outer gloves were changed. A 2 in longitudinal incision was made over the anterior superior aspect shoulder over the tendinous raphe a between anterior and middle heads of the deltoid. This wrapped a was incised for distance of 4 cm and we elevated about 5 mm of the deltoid off the anterior acromion for optimal exposure and a self retaining retractor was placed. Additional bursectomy was performed and the central supraspinatus had microperforations that were easily probe through with the nerve hook. This spanning tissue was about 1 mm thick centrally. This was carefully debrided off of the lateral aspect of the greater tuberosity footprint and there was no tissue attached to the medial 80% of the greater tuberosity footprint anterior facet. There was high-grade articular sided partial-thickness tearing on the middle facet at the supraspinatus insertion as well and we debrided the insertion until it became a little bit thicker about 2 mm and this gave us enough room to work underneath the infraspinatus portion that was still attached and the greater tuberosity was cleaned with a clean 15 blade scalpel and 2 mm bur used to make numerous 1 mm deep perforations to get a rough bleeding surface and then 2 mm bigg holes adjacent to the articular surface for passage of sutures. A 2. Vicryl was placed in the tendon and we passed a tear of a inter over the surface the tendon which freed surface adhesions and the tendon mobilized very well with this simple maneuver. It was not felt that allograft augmentation would be indicated. We then passed a 1.3 mm Alisha suture tape obtaining full thickness of the posterior aspect of the supraspinatus tendon in the center of the repair and passed it through the greater tuberosity bur hole tied this down and we could see that we had anatomic reduction of the tendon. Second 1.3 mm SutureTape was placed in the infraspinatus similarly tied down. An additional 5 2. Ethibonds were placed in a converging pattern to create a spherical contour to the repaired tendon. There was full range of motion of the shoulder without tension on the repair and the undersurface the acromion was palpably smooth. The arthroscope was placed back in the shoulder and we confirmed that the longer the biceps was not entrapped. The supraspinatus and infraspinatus was reduced to the articular cartilage edge. Wound was irrigated with antibiotic solution deltoid reattached to the acromion with a single 2. Vicryl and 2. Vicryl than the split. Skin closed with 2 subcutaneous Vicryl and glue. EBL 50 cc. There g Ancef given time wound closure. There were no complications he was transferred postop recovery room in good condition. [facility] Billing Surgery - Charge Forward: Surgery Billing (Arthroscopic limited debridement of labral tearing, mini open rotator cuff repair right shoulder.)
--- NOTE | 2024-04-23 14:46 | PM.OP ---
Procedure Note - Brief Procedure Note - Brief Date of procedure: 04/23/24 right shoulder Rotator cuff tear Procedure performed: Right shoulder arthroscopy with mini open rotator cuff repair Surgeon: LINDA Morton Findings: 69 year old who underwent right shoulder arthroscopy with mini open rotator cuff repair on 04/23. I was involved in the procedure including positioning patient on the OR table in 1st assisting through the time surgery. Total time spent was 2 hours
--- NOTE | 2024-04-23 15:07 | WPDANESPNB ---
Anes - Peripheral Nerve Block Date/Time: 04/23/24 15:07 I have discussed with the patient/family/POA the placement of a peripheral nerve block for post-operative pain management, including associated risks, benefits, complications, and side effects. Alternative methods of post-operative analgesia were detailed. Questions were solicited and answers provided to the satisfaction of the patient/family/POA. Time-Out: A pre-procedural Time-Out was completed immediately before starting the procedure and confirmed: Patient Identification, Site, Procedure, Patient Position and the Availability of Requisite Equipment. Clinical Indications: Acute post-operative pain management requested by the operative surgeon. Nerve Block Insertion Note Anes-nerve block: interscalene right Patient position: supine Skin prep: chlorhexidine Needle: 22 gauge, stimulating, insulated echogenic needle. Needle length: 50 mm Technique: nerve stimulation lost at (mA) (0.3) and ultrasound Technique comment: done in pacu Injectate: bupivacaine 0.5% with epi 5 mcg/ml (30ml no epi) Observations: tolerated well Complications: none Procedure start time:: 7 Procedure end time:: 1504
== END 2024-04-23 16:25 | disposition home or self-care (01) ==
PROVIDERS: PCP Family Medicine; Visit Provider Orthopaedic Surgery
PROC: (CPT 29805; principal; 2024-04-23 12:00)
DX: S46.011A Strain of muscle(s) and tendon(s) of the rotator cuff of right shoulder, initial encounter (principal); W10.9XXA Fall (on) (from) unspecified stairs and steps, initial encounter; M75.81 Other shoulder lesions, right shoulder; G89.18 Other acute postprocedural pain; E66.9 Obesity, unspecified; Z68.31 Body mass index [BMI] 31.0-31.9, adult
CPT/HCPCS: 23410; 64415; A9270; J0690; J1885; J2250; J2270; J2704; J3370; J7120

== ENCOUNTER 2024-07-21 15:00 | Outpatient (RCR) | payer MEDICARE, SELFPAY ==
[2024-04-27 12:47] VITALS: BP_SYST 10
--- NOTE | 2024-04-27 17:56 | PTOPEVAL1 ---
Assessment and note entered by Mary Miguel, PT Evaluation Information Assessment Status Evaluation Diagnosis S46.011D ICD-10 Condition Codes (PT) Abnormalities of gait and mobility R26.9,Weakness R53.1,Encounter for other orthopedic aftercare Z47 .89 Onset 04/23/2024 Subjective Information Pt. Reports stopped taking Oxycodone last 04/25 which was 2 days post op due to pain was not severe and did not bother him. Reports icing 3x/ day for 15-20 min until now. Wearing a sling to keep shoulder in neutral and elbow bent at 90 deg, neutral rotation. Denies any pain, feels general body fatigue, tried to perform light housework and felt exhausted. Still adjusting to not being able to use dominant hand and it also feels tired being in static position, feels like he wants to stretch it out. Reported Pain Level Pain Score 0: Self Report Assessment PT Clinical Summary Pt presents to therapy s/p Rotator Cuff Tear surgery on 04/23/2024 with immobilizer sling to be worn until the next f/u with Dr. Sparks on 2024. Pt denies pain in protected position, verbalizes pain with passive R shoulder movements secondary to increased tension and muscle guarding . Demos significant reduction in ROM and strength with shoulder post-op precautions in place impacting his ability to perform indep functional mobility. He also showed a higher score on Quick DASH of 68% indicating greater level of disability to RUE at this time. He will greatly benefit from skilled PT intervention to improve mobility, strength, stability, safety awareness and muscle endurance while recovering post op in order to return to indep PLOF. Plan of Care PT Services Indicated Yes Treatment Frequency and 2x/wk x 20 visits Duration These treatments will address the objective and functional deficits as defined above. The patient will be advanced safely and appropriately in order for the patient to progress towards his/her prior level of function. Additional exercises will be introduced and as well as a comprehensive home exercise program upon discharge, if needed, ?to ensure carryover of functional gains achieved in the clinic. This treatment plan has been reviewed and agreement upon by the patient.
--- NOTE | 2024-04-27 17:57 | OPREHPOC ---
Outpatient Therapy Plan of Care This is a Multidisciplinary Plan of Care that may contain components documented by all disciplines (PT, OT, and ST.) PT Problem 1 PT Problem #1 Knowledge Deficit PT Goal 1 Goal / Goal Update Pt and pt's will perform HEPs indep with proper positioning and stabilization. Pt will perform active flexibility and strengthening exercises indep. Target Visit 20 PT Problem 2 PT Problem #2 Impaired Range of Motion PT Goal 1 Goal / Goal Update Pt will perform functional RUE mobility painfree in accordance to protocol and phases of healing. Target Visit 10 PT Problem 3 PT Problem #3 Impaired Strength PT Goal 1 Goal / Goal Update Pt will perform RUE active motions and will demo gross strength of 4/5 at end of therapy program in accordance to shoulder protocols. Target Visit 20 PT Problem 4 PT Problem #4 Impaired Functional Mobility PT Goal 1 Goal / Goal Update Pt will demo a QUICK DASH score of 10% or less to RUE indicating improved mobility and a safe return to function phase of the R shoulder. Target Visit 24
--- NOTE | 2024-07-27 15:55 | PTOPPROG ---
Assessment and note entered by Mary Miguel, PT Evaluation Information Assessment Status Progress Diagnosis S46.011D ICD-10 Condition Codes (PT) Abnormalities of gait and mobility R26.9,Weakness R53.1,Encounter for other orthopedic aftercare Z47 .89 Onset 04/23/2024 Subjective Information Pt. reports has been using arm more and has been reaching overhead; recent bilateral knees discomfort, Chiropractor states it is because of the position of the legs standing up and not using BUEs. Assessment PT Clinical Summary Pt demos excellent progress with therapy, showed gains in strength and mobility. However, he continue to demo tightness and muscle guarding, decreased stability and limitation with ROM for shoulder vik IR. He would benefit from continued skilled PT to address deficits and achieve LTGs. Plan of Care PT Services Indicated Yes Treatment Frequency and 2x/wk x 20 visits Duration These treatments will address the objective and functional deficits as defined above. The patient will be advanced safely and appropriately in order for the patient to progress towards his/her prior level of function. Additional exercises will be introduced and as well as a comprehensive home exercise program upon discharge, if needed, ?to ensure carryover of functional gains achieved in the clinic. This treatment plan has been reviewed and agreement upon by the patient.
== END 2024-07-26 23:59 | disposition home or self-care (01) ==
LOC: ANHHIPT 15:00
PROVIDERS: PCP Family Medicine; Visit Provider Orthopaedic Surgery
DX: S46.011D Strain of muscle(s) and tendon(s) of the rotator cuff of right shoulder, subsequent encounter (principal)
CPT/HCPCS: 97014; 97035; 97110; 97112; 97140; 97161; 97530; G0283